=== PATIENT | female | born 1980 | race Caucasian/White ===

== ENCOUNTER → 2017-10-18 11:19 | Outpatient (CLI) | payer OTHER, MEDICAID, SELFPAY ==
[2017-10-24 10:49] LABS: AFP, Serum 30.1 ng/mL; Calc Gestational Age 18.1; Est Date Determined by US; Maternal Weight 245 lbs; Mother Ethnic Origin CAUCASIAN; Number of Fetuses 1; Prev Pregnancies Down Syndrome NOT GIVEN
== END ==
PROVIDERS: Visit Provider Obstetrics & Gynecology
DX: Z34.82 Encounter for supervision of other normal pregnancy, second trimester (principal)
CPT/HCPCS: 36415; 82105

== ENCOUNTER → 2017-10-24 13:12 | Outpatient (CLI) | payer OTHER, MEDICAID, SELFPAY ==
--- NOTE | 2017-10-24 13:13 | DI.US.S_ITS ---
PROCEDURE: US OB >= 14 WEEKS FETUS INDICATIONS: ANATOMY OUTSIDE/PRIOR DATING DATA: Last menstrual period (LMP): 06/13/79. LMP-based estimated date of delivery (MARY): 03/15/80. First dating scan (date and location): 08/15/17. Estimated date of delivery (MARY) from first dating scan: 03/20/18. TECHNIQUE: Real-time scanning was performed of the fetus, with image documentation and biometric measurements. Endovaginal scanning: No COMPARISON: [facility], , OB <= 14 WEEKS FETUS, 09/13/2017, 12:22. FINDINGS: General: A single living intrauterine gestation is present. Presentation: Breech. Placenta: Placental position is anterior, without previa. . Amniotic fluid index: 13.2 cm, normal range is 5-24 cm. heart rate: 141 beats per minute. Maternal cervical canal: 4.4 cm long. Normal lower limit is 2.5 cm. biometrics: Biparietal diameter: 19 weeks 1 day Head circumference: 19 weeks 4 days Abdominal circumference: 19 weeks 5 days Femur length: 18 weeks 5 days Estimated gestational age from initial scan: 19 weeks Composite gestational age from present scan: 19 weeks 2 days Estimated weight and percentile: 281 g; 60 percentile Measurement variability for biometric dating: +/- 7 days from 14 weeks to 15 weeks 6 days gestation, +/- 10 days from 16 weeks to 21 weeks 6 days gestation, +/- 2 weeks from 22 weeks to 27 weeks 6 days gestation, +/- 3 weeks for 28 weeks gestation or later. weight reference: 4500 g or EFW >90/95% is considered macrosomia or large for gestational age. EFW <10% is small for gestational age. EFW 5% or less is considered intra-uterine growth restriction. Anatomic survey: Neuro: Ventricles are non-dilated at less than 10 mm. Cisterna magna is normal at 3-11 mm. Cerebellum is normal in size and morphology. Nuchal skin fold: Normal at less than 6 mm between 14-21 weeks gestational age. Face: Nose and lips, facial profile are normal. Spine: No evidence for spina bifida. Heart: Not well-seen. Diaphragm: Diaphragm is intact. Stomach: Left-sided stomach is present. Kidneys: No hydronephrosis. Normal is less than 5 mm in 2nd trimester, less than 7 mm in 3rd trimester. Cord: 3-vessel cord has orthotopic insertion. Bladder: Normal in size. Extremities: Lower extremities not well seen. IMPRESSION: 1. Single living IUP redemonstrated and interval growth is normal. 2. heart and lower extremities not well-visualized. Dictated by: Facundo MURILLO Interpreted: Ezio De León MD on 10/24/2017 at 15:19 Approved by: Ezio De León M.D. on 10/24/2017 at 15:54
== END ==
PROVIDERS: Visit Provider Obstetrics & Gynecology
DX: Z34.82 Encounter for supervision of other normal pregnancy, second trimester (principal); Z3A.19 19 weeks gestation of pregnancy
CPT/HCPCS: 76811

== ENCOUNTER → 2017-12-14 10:33 | Outpatient (CLI) | payer OTHER, MEDICAID, SELFPAY ==
[2017-12-14 12:40] LABS: GTT (PREG) 1 Hour PP 50gm Dose 101 mg/dL (76-139)
[2017-12-14 16:24] LABS: Hematocrit 39.1 % (36-46); Hemoglobin 13.3 g/dL (12.0-16.0)
== END ==
PROVIDERS: Visit Provider Obstetrics & Gynecology
DX: Z34.92 Encounter for supervision of normal pregnancy, unspecified, second trimester (principal); Z3A.26 26 weeks gestation of pregnancy
CPT/HCPCS: 36415; 82950; 85014; 85018

== ENCOUNTER → 2018-02-08 13:24 | Outpatient (CLI) | payer OTHER, MEDICAID, SELFPAY ==
[2018-02-09 13:56] LABS: Strep Grp B PCR POS for Grp B Strep
== END ==
PROVIDERS: PCP Family Medicine; Visit Provider Obstetrics & Gynecology
DX: Z3A.35 35 weeks gestation of pregnancy (principal)
CPT/HCPCS: 87653

== ENCOUNTER 2018-03-10 05:34 | Inpatient (IN) | payer OTHER, MEDICAID, SELFPAY ==
[2018-03-10] VITALS (9 sets, daily range): BP systolic 102–123; BP diastolic 64–73; PULSE 74–98; RESP 8–17; TEMP 36.2–36.8; O2SAT 95–98
[2018-03-10 06:21] LABS: Add Manual Diff / Slide Review NO; Basophils Percent Auto 1.3 % (0-2); Hematocrit 37.6 % (36-46); Hemoglobin 13.1 g/dL (12.0-16.0); Lymphocytes Percent Auto 29.8 % (25-40); Mean Corpuscular HGB Conc 34.9 % (30-36); Mean Corpuscular Hemoglobin 30.2 PG (26-34); Mean Corpuscular Volume 86.7 fL (80-100); Monocytes Percent Auto 4.2 % (3-14); Neutrophils Absolute Auto 6400 /uL (3000-5900); Neutrophils Percent Auto 63.7 % (50-75); Platelet Count 237 X10^3/uL (150-400); Red Blood Cell Count 4.34 X10^6/uL (4.0-5.2); Red Cell Distribution Width 13.3 % (11.6-14.8); White Blood Cell Count 10.1 X10^3/uL (4.5-11.0)
[2018-03-10] MEDS: LACTATED RINGERS 1,000 ML 42 ML IV (06:27)
--- NOTE | 2018-03-10 07:19 | SUR.OPER ---
Supine on Padded OR bed, head on pillow, safety belt at thigh, arms secured on padded arm boards at <90 degrees abduction. Bump under right buttock. Legs uncrossed with pillow under knees, gel pad to heels, tape over blanket to lower legs.
[2018-03-10] MEDS: CEFOTETAN 2 GM/50 ML PIGGYBACK IV (08:00)
--- NOTE | 2018-03-10 08:30 | SUR.OPER ---
VIABLE FEMALE INFANT DELIVERED AT 0823. CORD BLOOD AND PLACENTA TO OB WITH RN.
--- NOTE | 2018-03-10 08:41 | SUR.OPER ---
PATIENT STATES SHE IS NOT ALLERGIC TO MORPHINE.
--- NOTE | 2018-03-10 09:01 | P.OP_ITS ---
Operative Date/Time/Diagnoses Date of procedure: 03/10/18 Time of procedure: 08:55 Pre-op diagnosis: Term intrauterine History of three prior sections Desire for repeat section Post-op diagnosis: same Procedure: Procedures Operation Date: 03/10/18 07:45 Actual Procedures Side Surgeon p Section-Repeat Not Applicable Jorge Luis Green MD Indications: Term intrauterine History of prior section Desire for repeat section Surgeon: Shante Renteria Corporate Human Resources Manager: Jorge Luis Green Anesthesia Type: Spinal Operative Notes Findings: Live-born female 9 lb 2 oz scores nine and nine Normal tubes and ovaries Closure Type: primary Specimen(s): none Estimated blood loss (mL): 500 Blood products transfused: none Procedure in detail: The patient was placed supine upon the operating table. She was then placed in a sitting position and spinal anesthesia was administered without difficulty. Patient was placed supine again and draped para in the usual fashion. A transverse incision was made through the old scar and the subcutaneous tissue incised to the fascia. There was obvious thickening of the subcutaneous tissue. The fascia was incised with a sharp knife and the incisions extended laterally in each direction with the Ribera scissors. The superior and inferior rough phase were then taken down sharply with a small bleeder on the right-hand side which was fulgurated. The muscles were then in the midline and the peritoneum opened and this was widened by blunt finger dissection. Further dissection was used on the fascia laterally in each direction to get good exposure. The peritoneum over the lower uterine segment was incised and taken down sharply and the bladder blade replaced. There was a thin lower uterine segment which was incised and there was light meconium. A live-born female infant weighing 9 lb 2 oz was then delivered with scores of nine and nine without difficulty. The placenta delivered spontaneously and the cord had three vessels. The estimated blood loss was 500 cc. All membranes were massage from the endometrial cavity. The uterine incision was closed in an imbricating fashion using two layer technique with 0 chromic suture.. No bleeding points were seen the visceral peritoneum was closed with a running two 0 chromic suture. No bleeding points were seen. Tubes and ovaries appeared to be normal. The parietal perineum was grasped and closed with running two 0 chromic suture. The fascia was closed with two continuous 1. Vicryl sutures. The subcutaneous tissue was closed in two layers 1st with interrupted three 0 Vicryl suture then with a running horizontal mattress for 0 Vicryl suture and further reapproximated with Steri- Strips. At the end of the procedure the urine was clear. There was minimal bleeding. The patient was taken to the recovery room in satisfactory condition. Post-operative Condition: stable Disposition: PACU Plan for aftercare: Transferred over Center
[2018-03-10] MEDS: diphenhydrAMINE 50 MG/ML VIAL 25 MG IV ×2 (09:36→23:38)
--- NOTE | 2018-03-10 09:54 | SUR.PHASEI ---
TOTAL IV FLUID INTAKE 2000ML SECOND BAG WAS NOT CHARTED IN THE OR
[2018-03-10] MEDS: KETOROLAC 30 MG/ML VIAL IV ×3 (11:20→23:36)
[2018-03-10] MEDS: OXYCODONE/ACETAMINOPHEN 5/325 TABLET 2 TAB PO ×3 (13:53→22:18)
[2018-03-11] MEDS: OXYCODONE/ACETAMINOPHEN 5/325 TABLET 1 TAB PO (03:49)
[2018-03-11] MEDS: diphenhydrAMINE 50 MG/ML VIAL 25 MG IV (04:02)
[2018-03-11] MEDS: KETOROLAC 30 MG/ML VIAL IV (05:37)
[2018-03-11] MEDS: LEVOTHYROXINE 100 MCG TABLET PO (05:38)
[2018-03-11 06:32] LABS: Hematocrit 34.6 % (36-46); Hemoglobin 11.7 g/dL (12.0-16.0)
[2018-03-11 07:42] VITALS: TEMP 36.6
[2018-03-11] MEDS: OXYCODONE/ACETAMINOPHEN 5/325 TABLET 2 TAB PO ×5 (07:42→23:31)
[2018-03-11] MEDS: DOCUSATE 250 MG CAPSULE PO (08:31)
--- NOTE | 2018-03-11 08:58 | PM.OBPN.1 ---
Subjective - OB Patient comments: no complaints baby status: doing well feeding status: exclusively breast feeding Narrative: Pt is approximately 24 hrs post section and doing well. She is voiding in good volume. ambulating well. Taking po well. Wtih minimal bleeding Date Patient Seen: 03/11/18 Time Patient Seen: 08:59 Exam Vital Signs (past 8 hours): - 03/11/18 07:42 Temperature 97.8 F Oxygen Delivery Method Room Air Narrative Exam Narrative: Fundus u-1 Incision with aquacell dresing Objective Labs Result Diagrams: 03/11/18 06:23 Labs: Laboratory Results - last 24 hr 03/11/18 06:23 Hgb 11.7 L Hct 34.6 L Assessment & Plan (1) Postoperative examination: Start date: 03/11/18 Status: Acute Current Visit: Yes Plan day: 1 plan OB: routine postop care Comments: doing well very actrive Time Spent With Patient Total time spent is greater than 50% in coordination of care (as documented) at patient's floor/unit and/or counseling patient: less than 15 minutes
[2018-03-11 11:17] VITALS: TEMP 36.6
[2018-03-11] MEDS: IBUPROFEN 600 MG TABLET PO ×3 (11:17→23:33)
[2018-03-11 11:19] LABS: Thyroid Stimulating Hormone 3.29 uIU/mL (0.47-4.68)
[2018-03-11 15:30] VITALS: TEMP 36.9
[2018-03-11 17:22] VITALS: TEMP 36.7
[2018-03-11 19:31] VITALS: TEMP 36.6
[2018-03-12] MEDS: OXYCODONE IR 5 MG TABLET 10 MG PO ×2 (04:59→09:34)
[2018-03-12] MEDS: IBUPROFEN 600 MG TABLET PO (05:39)
[2018-03-12] MEDS: LEVOTHYROXINE 100 MCG TABLET PO (05:40)
--- NOTE | 2018-03-12 08:29 | PM.OBDS.1 ---
Discharge Providers Date of admission: 03/10/18 05:34 Primary care physician: Duke Potts MD Consults: 03/10/18 09:44 Consult to Junior Java Developer Routine Comment: Discharge provider: Jorge Luis Green MD Discharge Date: 03/12/18 Summary Date Patient Seen: 03/12/18 Time Patient Seen: 08:35 Hospital Course: The patient is a 37-year-old white female who presented with a history of prior section and term . The patient had a repeat low segment section without incident. Post delivery the patient did well she remained afebrile with stable vital signs and was progressively element and ambulated. She was taken postoperative been instructions were given with regards to diet wound care bathing Peripartum Data Delivery Method: Section Procedures: Spinal anesthesia Repeat section complications: none Discharge Diagnosis (1) Postoperative examination: Start Date: 03/12/18 Start Time: 08:36 Status: Acute Status at Discharge Cognitive/behavioral status at discharge: None Functional status at discharge: independent ambulation Overall status at discharge: patient is back to baseline Time Spent with Patient Total time spent providing and/or coordinating discharge services: Less than 30 minutes Time spent discussing smoking cessation with patient: 3 to 10 minutes Objective Labs Result Diagrams: 03/11/18 06:23 Labs: Laboratory Results - last 24 hr 03/11/18 06:23 TSH 3.29 Discharge Plan Discharge Plan Patient Disposition: Home Discharge Med Rec/Prescriptions Prescriptions: New oxycodone 10 mg tablet 10 mg PO Q4-6H PRN (Reason: pain) Qty: 30 RF: 0 docusate sodium [Colace] 100 mg capsule 100 mg PO BID Qty: 14 RF: 0 ibuprofen 600 mg tablet 600 mg PO QID PRN (Reason: pain) Qty: 20 RF: 0 Discontinued azithromycin 250 mg tablet 250 mg PO .COMPLEX MDD 2 Qty: 11 RF: 0 Follow up/Referrals: Jorge Luis Green MD [Physician] - 03/17/18 12:00 am Provider Discharge Instructions Diet: Diet as Tolerated Activity: p ad shamika Skin/Wound/Dressing Care Report to your healthcare provider any signs of infection, such as:: chills, fever, increased pain and unusual drainage Discharge Data Primary Care Provider: Duke Potts Attending Provider: Jorge Luis Green Admit Date/Time: 03/10/18 05:34
[2018-03-12 08:58] VITALS: BP 110/80; PULSE 80; RESP 17; TEMP 36.6
[2018-03-12 09:34] VITALS: TEMP 36.6
== END 2018-03-12 10:00 | disposition home or self-care (01) | DRG 540 ==
PROVIDERS: PCP Family Medicine
PROC: 10D00Z1 Extraction of Products of Conception, Low, Open Approach (ICD-10-PCS; CPT 59514; principal; 2018-03-10 07:45)
DX: O34.219 Maternal care for unspecified type scar from previous cesarean delivery (principal); Z3A.39 39 weeks gestation of pregnancy; Z37.0 Single live birth
CPT/HCPCS: 36415; 59050; 59514; 84443; 85014; 85018; 85025; 86850; 86900; 86901; J1100; J1200; J1885; J2274; J2405; J2590; J2765

== ENCOUNTER → 2018-04-26 11:51 | Outpatient (CLI) | payer OTHER, MEDICAID, SELFPAY ==
[2018-04-26 12:51] LABS: Free T4, Direct Thyroxine 0.93 ng/dL (0.78-2.19)
[2018-04-26 13:05] LABS: Thyroid Stimulating Hormone 0.66 uIU/mL (0.47-4.68)
== END ==
PROVIDERS: PCP Family Medicine; Visit Provider Obstetrics & Gynecology
DX: E03.9 Hypothyroidism, unspecified (principal)
CPT/HCPCS: 36415; 84439; 84443

== ENCOUNTER → 2018-09-05 10:43 | Outpatient (CLI) | payer OTHER, MEDICAID, SELFPAY ==
[2018-09-05 11:48] LABS: HCG Quantitative /Beta subunit 1837.3 mIU/mL
== END ==
PROVIDERS: PCP Family Medicine; Visit Provider Obstetrics & Gynecology
DX: N91.2 Amenorrhea, unspecified (principal)
CPT/HCPCS: 36415; 84702

== ENCOUNTER → 2018-09-12 14:10 | Outpatient (CLI) | payer OTHER, MEDICAID, SELFPAY ==
--- NOTE | 2018-09-12 14:14 | DI.US.S_ITS ---
PROCEDURE: US OB <= 14 WEEKS FETUS INDICATIONS: SPOTTING OUTSIDE/PRIOR DATING DATA: Last menstrual period (LMP): 08/12/18. LMP-based estimated date of delivery (MARY): 05/19/19. First dating scan (date and location): 09/12/18. Estimated date of delivery (MARY) from first dating scan: See below TECHNIQUE: Real-time scanning was performed of the fetus and maternal pelvic organs, with image documentation. Endovaginal scanning was also performed to better visualize the fetus and maternal ovaries. COMPARISON: [facility], US, US OB <= 14 WEEKS FETUS, 09/13/2017, 12:22. FINDINGS: Embryo: Possible intrauterine gestational sac identified however no pole is seen. Mean gestational sac diameter measures 0.4 cm (5 weeks one day). This appears to be located near scar in the lower uterine segment. Measurement variability in dating: +/- 4 weeks by LMP, +/- 7 days by mean sac diameter (use before 6 weeks gestation if crown-rump length not able to be measured), +/- 5 days by crown-rump length (up to 8 weeks 6 days gestation), +/- 7 days by crown-rump length (up to 13 weeks 6 days gestation). Maternal organs: Ovaries unremarkable except for a possible right-sided corpus luteum. Limited images through the kidneys demonstrate no hydronephrosis. IMPRESSION: Possible intrauterine gestational sac although technically nonspecific. No pole identified. Recommend correlation with beta hCG values and repeat pelvic ultrasound in one week. Differential includes early IUP, missed spontaneous and technically cannot exclude ectopic at this time. Dictated by: Ezio De León M.D. on 09/12/2018 at 17:08 Approved by: Ezio De León M.D. on 09/12/2018 at 17:11
== END ==
PROVIDERS: PCP Family Medicine; Visit Provider Obstetrics & Gynecology
DX: O20.9 Hemorrhage in early pregnancy, unspecified (principal)
CPT/HCPCS: 76801; 76817

== ENCOUNTER → 2018-09-25 13:47 | Outpatient (CLI) | payer OTHER, MEDICAID, SELFPAY ==
[2018-09-25 16:39] LABS: HCG Quantitative /Beta subunit 4180.8 mIU/mL
== END ==
PROVIDERS: PCP Family Medicine; Visit Provider Obstetrics & Gynecology
DX: O20.9 Hemorrhage in early pregnancy, unspecified (principal)
CPT/HCPCS: 84702

== ENCOUNTER → 2018-10-12 09:39 | Outpatient (CLI) | payer OTHER, MEDICAID, SELFPAY ==
[2018-10-12 11:08] LABS: Free T3, Triiodothyronine Free 2.89 pg/mL (2.77-5.27); Free T4, Direct Thyroxine 0.75 ng/dL (0.78-2.19)
== END ==
PROVIDERS: PCP Family Medicine; Visit Provider Family Medicine
DX: E03.9 Hypothyroidism, unspecified (principal); E66.9 Obesity, unspecified
CPT/HCPCS: 36415; 84439; 84443; 84481

== ENCOUNTER → 2018-10-18 09:16 | Outpatient (CLI) | payer OTHER, MEDICAID, SELFPAY ==
--- NOTE | 2018-10-18 09:17 | DI.US.S_ITS ---
PROCEDURE: US THYROID INDICATIONS: THYROMEGALY TECHNIQUE: Real-time scanning was performed of the thyroid gland, with image documentation. COMPARISON: None. FINDINGS: Right: Thyroid lobe measures 5.0 x 1.8 x 2.2 cm, and is diffusely heterogeneous and multinodular in echotexture. Left: Thyroid lobe measures 5.8 x 1.6 x 2.1 cm, and is diffusely heterogeneous and multinodular in echotexture. Isthmus: 7.0 mm thick. IMPRESSION: Enlarged multinodular thyroid. Dictated by: Facundo MURILLO Interpreted: Doe Pickering MD on 10/18/2018 at 10:30 Approved by: Doe Pickering M.D. on 10/19/2018 at 8:50
== END ==
PROVIDERS: PCP Family Medicine; Visit Provider Family Medicine
DX: E01.0 Iodine-deficiency related diffuse (endemic) goiter (principal)
CPT/HCPCS: 76536

== ENCOUNTER → 2018-10-25 08:58 | Outpatient (CLI) | payer OTHER, MEDICAID, SELFPAY ==
[2018-10-25 10:28] LABS: TSH w/ Reflex to FT4 1.81 uIU/mL (0.47-4.68)
[2018-10-27 15:56] LABS: Anti Thyroglobulin Antibody 2 IU/mL (< 2); Thyroid Peroxidase Antibodies 70 IU/mL (< 9)
[2018-11-01 11:09] LABS: Thyroid Peroxidase Antibodies 82
== END ==
PROVIDERS: PCP Family Medicine; Visit Provider Family Medicine
DX: E03.9 Hypothyroidism, unspecified (principal); E04.1 Nontoxic single thyroid nodule
CPT/HCPCS: 36415; 84443; 86376; 86800

== ENCOUNTER → 2019-01-11 14:13 | Outpatient (CLI) | payer OTHER, MEDICAID, SELFPAY ==
[2019-01-11 15:18] LABS: TSH w/ Reflex to FT4 0.53 uIU/mL (0.47-4.68)
== END ==
PROVIDERS: PCP Family Medicine; Visit Provider Family Medicine
DX: E03.9 Hypothyroidism, unspecified (principal)
CPT/HCPCS: 36415; 84443

== ENCOUNTER → 2019-08-27 15:26 | Outpatient (CLI) | payer OTHER, MEDICAID, SELFPAY ==
[2019-08-27 16:06] LABS: Hemoglobin A1C% w Est Avg Glu 5.1 % (4.0-6.0)
[2019-08-27 16:36] LABS: Free T4, Direct Thyroxine 1.74 ng/dL (0.78-2.19)
[2019-08-27 16:50] LABS: Thyroid Stimulating Hormone 0.03 uIU/mL (0.47-4.68)
[2019-08-27 17:04] LABS: HCG Quantitative /Beta subunit 24901 mIU/mL
[2019-08-28 07:28] LABS: Triiodothyronine T3 Total 77 ng/dL (71-180)
== END ==
PROVIDERS: PCP Family Medicine; Referring Provider Family Medicine; Visit Provider Obstetrics & Gynecology
DX: O03.9 Complete or unspecified spontaneous abortion without complication (principal); E03.9 Hypothyroidism, unspecified
CPT/HCPCS: 36415; 83036; 84439; 84443; 84480; 84702; 86850; 86900; 86901

== ENCOUNTER 2019-08-31 15:42 | Day surgery (SDC) | payer OTHER, MEDICAID, SELFPAY ==
[2019-08-29 10:40] VITALS: BMI 31.3
[2019-08-31] VITALS (20 sets, daily range): BP systolic 102–136; BP diastolic 58–83; PULSE 67–88; RESP 10–21; TEMP 36.4–37.2; O2SAT 95–100; BMI 31.3
--- NOTE | 2019-08-31 | PATH_ITS ---
[facility] Accession Number: [id number] . 01 Material submitted: . PART A: product of conception - TISSUE FROM D/C PART B: product of conception - TISSUE FROM MISSED AB . 02 Diagnosis: A. Tissue From D/C, Removal: Secretory endometrium with no evidence of neoplasia. . B. Tissue From Missed , Removal: Chorionic villi and fragments of decidua, consistent with products of conception. [facility] 09/03/2019 1335 Local . 02 Electronically signed: . Sunni Kraft MD, Pathologist NPI- [id number] . 01 Gross description: . Part A: TISSUE FROM D/C: Received in formalin are multiple fragments of hemorrhagic spongy tissue measuring 2.8 x 2.0 x 0.5 cm in aggregate. parts are not identified. Specimen is submitted in toto in 2 cassettes. Part B: TISSUE FROM MISSED AB: Received in formalin are multiple fragments of hemorrhagic spongy tissue measuring 11.0 x 10.0 x 2.5 cm in aggregate. parts are not identified. Water Ski Assembler sections are submitted in 4 cassettes. /MJMarie 09/01/2019 1043 Local . 02 Pathologist provided ICD-10: O02.1 . 02 CPT . 378930, [id number] Performed at: 01 [facility] [address], [place], [place] [id number] MD Vladimir Talbot MD Phone: [phone] Performed at: [address] [facility] [address] [place], [place] [id number] MD Sunni Kraft MD Phone: [phone]
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
[2019-08-31] MEDS: DOXYCYCLINE HYCLATE 100 MG TABLET 200 MG PO (16:32)
[2019-08-31] MEDS: LACTATED RINGERS 1,000 ML 100 ML IV ×3 (16:34→22:48)
[2019-08-31 17:04] LABS: COVID19 -Nasal RAPID Negative (Negative)
--- NOTE | 2019-08-31 17:17 | PM.PREOP ---
Pre-operative Note COVID-19 COVID-19 status: Negative Result date/Date tested (Pos, Neg/Pending): 08/31/19 Interval Note History & Physical reviewed/Exam performed by Physician: Yes Changes to H&P: No
--- NOTE | 2019-08-31 17:19 | PM.PROC.1 ---
Procedures Date/Time Date of procedure: 08/31/19 Time of procedure: 17:50 General Procedure description:
[2019-08-31] MEDS: ONDANSETRON 4 MG/2 ML INJ IV (17:27)
--- NOTE | 2019-08-31 17:29 | PM.OP.1 ---
Operative Date/Time/Diagnoses Date of procedure: 08/31/19 Time of procedure: 19:00 Pre-op diagnosis: Missed AB at 11 weeks by dates, 9 week persistent empty sac, questionable small 6 week pole with absence of cardiac activity, no change on sequential ultrasound, consistent with miscarriage. Severe cramping today and bleeding consistent with inevitable spontaneous . Post-op diagnosis: same Procedure & Clinicians Procedure: After being properly identified she was transferred to the operating room. After an adequate level of general anesthesia was obtained she was placed in Bar stirrups in the dorsal lithotomy position. Bimanual examination was performed which revealed an approximate 12 cm size uterus, globular consistent with .. She was prepped and draped in routine sterile fashion. Her bladder was sterilely drained with a rubber catheter. An open-sided speculum was placed and the cervix was grasped with a single-tooth tenaculum. The cervix was already mildly dilated and the dilators passed with ease, she did not need to be dilated and a 11. Curved suction curette could be passed with ease. The suction curette was placed. Suction curettage was performed for a moderate to large amount of tissue. Some tissue was set aside for chromosomal analysis. Several passes were needed before no further tissue was obtained. A metal curette was placed and gentle global curettage revealed there to be no further products of conception. The suction curette was placed 1 last time to obtain any residual clot or blood. There was no clot but still bright red blood. She had some normal increased bright red blood with removing the tissue and this had decreased but was still currently heavier than normal. The tenaculum was removed. Bimanual uterine massage was performed. The uterus felt like it was tasia down well overall except mildly boggy in the lower uterine segment. Speculum was replaced. There was good hemostasis at the tenaculum sites. She did have moderately heavy bleeding through the cervical os yet however. Methergine 0.2 mg IM was given and Misoprostol 800 mcg was given per rectum. Subsequently tranexamic acid 1 g IV given when bleeding was still on the heavier side than normal. The suction curette was placed again at this time with using an Allis clamp to the anterior cervix for counter traction and only some blood removed, no clots or tissue. The Allis clamp was removed. Bimanual massage was again performed . The uterus did feel firm at this time and contracted down well to approximately 9 cm size. Observation performed . Bleeding did decrease but there was still a light persistent trickle through the vagina. With replacing a speculum she was noted to have some heavier bleeding through the cervical os. Hemabate 250 mcg IM and Pitocin 30 units in 500 mL IV fluids were both given. Uterine massage performed wall leading the medications take effect and then observed external vagina and no further blood noted to be coming through the vagina. A speculum was placed and there was only a small amount of blood in the posterior cul-de-sac. The speculum was removed. Additional observation for few minutes revealed no additional blood through the vaginal opening. Bleeding appeared to now be normal for post suction D&C and the procedure was ended. A 2nd dose of tranexamic acid 1 gm IV was ordered, to be given when she reached the recovery room to help assure continued normal postprocedure bleeding. The procedure was ended. She tolerated the procedure well and went to recovery room stable condition. Same procedure as scheduled: Yes Indications: Missed AB on ultrasound, developed severe cramping and light bleeding but not passing tissue, consistent with inevitable AB desires proceeding with the suction D&C due to the severe cramping. Surgeon: Alessandra Lazo Click Yes if Unassisted: No Anesthesia Type: General Operative Notes Specimen(s): other (Products of conception for pathology and portion for chromosomal analysis) Post-operative Condition: stable Disposition: PACU
--- NOTE | 2019-08-31 18:04 | SUR.OPER ---
Lithotomy on padded OR bed, head on pillow, arms secured on padded arm boards at <90 degrees abduction. Legs secured in padded yellow fins stirrups.
[2019-08-31] MEDS: miSOPROStoL 200 MCG TABLET 800 MCG PR (18:19)
[2019-08-31] MEDS: TRANEXAMIC ACID 1,000 MG VIAL 1000 MG IV ×2 (18:26→19:16)
[2019-08-31] MEDS: fentaNYL 100 MCG/2 ML INJ IV ×4 (19:25→20:01)
[2019-08-31] MEDS: ONDANSETRON 4 MG/2 ML INJ (19:31)
[2019-08-31 19:44] LABS: Hematocrit 37.3 % (36-46); Hemoglobin 12.7 g/dL (12.0-16.0); Mean Corpuscular HGB Conc 33.9 % (30-36); Mean Corpuscular Hemoglobin 30.2 PG (26-34); Mean Corpuscular Volume 89.1 fL (80-100); Platelet Count 257 X10^3/uL (150-400); Red Blood Cell Count 4.19 X10^6/uL (4.0-5.2); Red Cell Distribution Width 15.5 % (11.6-14.8); White Blood Cell Count 10.2 X10^3/uL (4.5-11.0)
[2019-08-31 19:55] LABS: PTT Partial Thromboplastin Tim 31 SECONDS (26.4-36.2)
[2019-08-31] MEDS: METOCLOPRAMIDE 10 MG/2 ML INJ IV (20:04)
[2019-08-31] MEDS: HYDROMORPHONE 2 MG INJ IV ×5 (20:10→21:47)
[2019-08-31] MEDS: CARBOPROST 250 MCG/ML AMPUL IM (20:33)
--- NOTE | 2019-08-31 21:24 | SUR.PHASEI ---
Report called to Isabel
--- NOTE | 2019-08-31 21:37 | SUR.PHASEI ---
Dr. Lazo evaluated patient, pad and chux changed for moderate bleeding
[2019-08-31] MEDS: OXYCODONE IR 5 MG TABLET 10 MG PO (21:51)
--- NOTE | 2019-08-31 22:07 | PM.PNPO.1 ---
Subjective Subjective Date Patient Seen: 08/31/19 Time Patient Seen: 22:07 Interval history: Been observing patient and PACU since postprocedure. Postop she had severe cramping, expected due to the medications, including Hemabate that she received in the OR. Her vaginal bleeding picked up again about 2 pads per hour. I gave her an additional dose of misoprostol 200 mcg per rectum, to take her up to 1000 mcg total (had received 800 mcg in the OR) and repeated Hemabate 250 mcg when she was 90 minutes from her prior dose. Her bleeding has now decreased to less than 1 pad per hour. Her cramping had decreased with pain medication, but returned as severe after the repeat Hemabate. This is now more control, less intense with her with repeat Dilaudid IV and now oxycodone. Decision shortly postop when she was having the severe cramping and some heavier bleeding was to keep her for observation overnight. With bleeding being remediation technician and cramping more controlled, she is being transferred to the acute care floor for observation overnight. Exam Vital Signs (past 8 hours): - 08/31/19 16:10 08/31/19 19:10 08/31/19 19:12 Temperature 98.5 F 98.2 F Pulse Rate 81 81 81 Respiratory Rate 18 14 15 Blood Pressure 102/59 L 136/58 L 112/75 Pulse Oximetry 99 98 98 08/31/19 19:19 08/31/19 19:22 08/31/19 19:39 Temperature Pulse Rate 77 78 80 Respiratory Rate 16 11 L 13 Blood Pressure 116/81 126/78 115/75 Pulse Oximetry 99 99 98 08/31/19 19:47 08/31/19 20:02 08/31/19 20:17 Temperature Pulse Rate 74 79 68 Respiratory Rate 12 11 L 10 L Blood Pressure 112/73 118/74 106/64 Pulse Oximetry 100 96 97 08/31/19 20:31 08/31/19 20:49 08/31/19 21:03 Temperature 98.1 F Pulse Rate 70 67 71 Respiratory Rate 11 L 10 L 21 Blood Pressure 105/68 119/77 109/59 L Pulse Oximetry 98 97 98 08/31/19 21:16 08/31/19 21:31 08/31/19 21:46 Temperature Pulse Rate 76 75 72 Respiratory Rate 11 L 19 12 Blood Pressure 129/83 122/80 124/60 Pulse Oximetry 95 98 99 Oxygen Delivery Method Room Air Objective Labs Result Diagrams: 08/31/19 18:30 Labs: Laboratory Results - last 24 hr 08/31/19 08/31/19 08/31/19 15:55 18:30 19:30 WBC 10.2 RBC 4.19 Hgb 12.7 Hct 37.3 MCV 89.1 MCH 30.2 MCHC 33.9 RDW 15.5 H Plt Count 257 PT 12.0 INR 1.0 APTT 31 COVID-19 PCR Negative Blood Type Antibody Screen 08/31/19 08/31/19 19:30 19:30 WBC RBC Hgb Hct MCV MCH MCHC RDW Plt Count PT INR APTT Cancelled COVID-19 PCR Blood Type A Positive Antibody Screen Negative Assessment & Plan Post-op Postoperative Procedures: Procedures Operation Date: 08/31/19 17:00 Actual Procedures Side Surgeon p Suction Dilation and Curettage Alessandra Lazo MD
--- NOTE | 2019-08-31 22:43 | SUR.PHASEI ---
Patient transferred to the floor. VS stable. IV patent with LR. Report given to Isabel. Purse, belongings bag, cellphone and valuables with patient.
[2019-08-31 22:47] LABS: Hematocrit 37.2 % (36-46); Hemoglobin 12.4 g/dL (12.0-16.0); Mean Corpuscular HGB Conc 33.2 % (30-36); Mean Corpuscular Hemoglobin 29.6 PG (26-34); Platelet Count 308 X10^3/uL (150-400); Red Blood Cell Count 4.18 X10^6/uL (4.0-5.2); Red Cell Distribution Width 15.8 % (11.6-14.8); White Blood Cell Count 13.5 X10^3/uL (4.5-11.0)
--- NOTE | 2019-08-31 23:20 | PC.NURSE ---
Pt arrived on unit at approx 2220, A and O x 4, able to ambulate to bed and BR. Pt is voiding and urine was brown in color. Dr. Lazo is aware. Pt is wearing a pad and at admit she had moderate behzad blood on a malena pad. Pad will be changed q 1 hour and MD wants to be called with status of blood loss and latest H and H. Pt has been typed and crossed and is A +. Pt is breast feeding at home and so is using a hospital breast pump. VSS. Pt is A and O and appears to be emotionally stable.
[2019-09-01] MEDS: OXYCODONE IR 5 MG TABLET PO (00:16)
[2019-09-01 00:20] VITALS: BP 113/59; PULSE 82; RESP 16; O2SAT 100
[2019-09-01 01:20] VITALS: BP 107/64; PULSE 83; RESP 16; O2SAT 97
[2019-09-01] MEDS: OXYCODONE/ACETAMINOPHEN 5/325 TABLET 2 TAB PO ×3 (02:11→09:37)
[2019-09-01 04:30] VITALS: BP 83/71; PULSE 74; RESP 16; TEMP 36.9; O2SAT 95
[2019-09-01 08:00] VITALS: BP 102/69; PULSE 72; RESP 18; TEMP 36.4; O2SAT 97
[2019-09-01] MEDS: LEVOTHYROXINE 125 MCG TABLET PO (08:02)
[2019-09-01] MEDS: KETOROLAC 30 MG/ML VIAL IV (09:37)
[2019-09-01] MEDS: SODIUM CHLORIDE 0.9% FLUSH 10 ML IV (09:37)
--- NOTE | 2019-09-01 09:42 | PM.PNPO.1 ---
Subjective Subjective Date Patient Seen: 09/01/19 Time Patient Seen: 09:20 Interval history: Stefany reports she is feelign well. Slept a few hours. She reports only with minimal bleeding last night after 11 pm. Nothing on to her pad through the night, just some in toilet when urinates. No further cramping. Muscles feel mildly sore over lower abdomen and arms, neck some---believes from holding body stiff when cramping was intense in PACU between pain medication. No fever or chills. Exam Vital Signs (past 8 hours): - 09/01/19 04:30 09/01/19 08:00 Temperature 98.4 F 97.6 F Pulse Rate 74 72 Respiratory Rate 16 18 Blood Pressure 83/71 L 102/69 Pulse Oximetry 95 97 Oxygen Delivery Method Room Air Oxygen Flow Rate 0 Narrative Exam Narrative: General: well appeearing, no acute distress Abdomen: soft, nontender Extremities: no edema Objective Labs Result Diagrams: 08/31/19 22:40 Labs: Laboratory Results - last 24 hr 08/31/19 08/31/19 08/31/19 15:55 18:30 19:30 WBC 10.2 RBC 4.19 Hgb 12.7 Hct 37.3 MCV 89.1 MCH 30.2 MCHC 33.9 RDW 15.5 H Plt Count 257 PT 12.0 INR 1.0 APTT 31 COVID-19 PCR Negative Blood Type Antibody Screen 08/31/19 08/31/19 08/31/19 19:30 19:30 22:40 WBC 13.5 H RBC 4.18 Hgb 12.4 Hct 37.2 MCV 89.0 MCH 29.6 MCHC 33.2 RDW 15.8 H Plt Count 308 PT INR APTT Cancelled COVID-19 PCR Blood Type A Positive Antibody Screen Negative Assessment & Plan Post-op Postoperative Procedures: Procedures Operation Date: 08/31/19 17:00 Actual Procedures Side Surgeon p Suction Dilation and Curettage Alessandra Laoz MD Postoperative day: 1 Postoperative status: doing well Postoperative status narrative: s/p heavier bleeding post suction D&C, improved after multiple uterotonic, uterine medications. Vaginal bleeding now minimal. CBC not drawn this am. Will cancel since pt doing well, ready for discharge home Postoperative plan: discharge Time Spent With Patient Time with patient: 15-24 minutes Quality VTE Deep Vein Thrombosis/Pulmonary Embolism Present on Admission: No
--- NOTE | 2019-09-01 11:12 | PC.NURSE ---
Discharge: Pt feels ready to d/c home. Has been up in the room and has no dizziness when she amb. Vag flow is scant. Po pain meds effective, received a second percocet and got toradol IV, having better pain control now. No problems voiding. Reviewed d/c packets, rx has been esent. priority load given for ferry. Questions answered. Pt d/c home via auto w/spouse.
--- NOTE | 2019-09-01 11:33 | CM.DANOTE ---
DCP: Case received, EMR reviewed and briefly met with patient. Introduced self and role. Was able to obtain a majority of information from chart, on patient, since she was getting ready to leave. DCP assessment completed with information currently available. Patient is a 38 year old female who admitted yesterday to the care of the surgical/OB team. Payer: confirmed: [facility]/Medicaid. Patient came to the hospital for a surgical procedure. She had been scheduled for a D&C, secondary to a spontaneous . Patient had been having cramping prior to surgery, and increased bleeding, and elected to have this procedure done. Met briefly with patient. She is independent, and was getting ready to leave. Pleasant demeanor. She resides on [facility] with her , Stuart. P: Patient is to be discharged home today with no needs. Neida Pearson RN/Elementary Classroom Teacher
== END 2019-09-01 10:00 | disposition home or self-care (01) ==
LOC: OR 15:45 → AC 22:26
PROVIDERS: PCP Family Medicine; Referring Provider Obstetrics & Gynecology; Visit Provider Obstetrics & Gynecology
PROC: (CPT 58120; principal; 2019-08-31 17:00)
DX: O02.1 Missed abortion (principal); Z3A.11 11 weeks gestation of pregnancy; E03.9 Hypothyroidism, unspecified; Z98.890 Other specified postprocedural states; D64.9 Anemia, unspecified; F41.9 Anxiety disorder, unspecified; Z11.59 Encounter for screening for other viral diseases
CPT/HCPCS: 59820; 36415; 85027; 85610; 85730; 86850; 86900; 86901; 87635; J1100; J1170; J1885; J2250; J2405; J2590; J2704; J2765; J3010; S0191

== ENCOUNTER → 2019-10-08 09:23 | Outpatient (CLI) | payer OTHER, MEDICAID, SELFPAY ==
[2019-08-31 22:32] VITALS: BMI 31.3
--- NOTE | 2019-10-08 09:27 | DI.RAD.S_ITS ---
1PROCEDURE: XR CERVICAL SPINE 2V OR 3V INDICATIONS: neck pain with right radiculopathy TECHNIQUE: 3 view(s) of the cervical spine were acquired. COMPARISON: [facility], CR, XR SHOULDER RT MIN 2V, 10/08/2019, 9:21. FINDINGS: Bones: No fractures or dislocations to the T1 level. The lateral masses of C1 appear intact on the odontoid view. No suspicious bony lesions. There is reversal of the normal cervical lordosis, with the apex at the C5-C6 level. There is moderate disc space narrowing seen at C5-C6 and mild to moderate disc space narrowing seen at C6-C7. Endplate irregularity and sclerosis are seen, which are most prominent at C5-C6. Partially bridging anterior osteophytes are seen at C5-C6. Soft tissues: No prevertebral soft tissue swelling. The visualized lung apices are unremarkable. IMPRESSION: Focal premature C5-C6 degenerative change. Reversal of the normal cervical lordosis is seen. This is commonly observed in patients with muscular spasm. Dictated by: Damien Reynaga M.D. on 10/08/2019 at 10:51 Approved by: Damien Reynaga M.D. on 10/08/2019 at 10:52
--- NOTE | 2019-10-08 09:27 | DI.RAD.S_ITS ---
PROCEDURE: XR SHOULDER RT MIN 2V INDICATIONS: right shoulder pain TECHNIQUE: 3 views of the shoulder were acquired. COMPARISON: [facility], CR, XR CERVICAL SPINE 2V OR 3V, 10/08/2019, 9:21. FINDINGS: Bones: No fractures or dislocations. No suspicious bony lesions. Visualized ribs appear intact. Soft tissues: No suspicious soft tissue calcifications. The visualized lung apices are unremarkable. IMPRESSION: Unremarkable plain film study. If it would be helpful for clinical management decision making, please consider a dedicated shoulder MRI for further evaluation (assuming that there is no contraindication). If there is strong clinical concern for a labral abnormality, this should be performed according to the arthrogram protocol. Dictated by: Damien Reynaga M.D. on 10/08/2019 at 10:52 Approved by: Damien Reynaga M.D. on 10/08/2019 at 10:53
== END ==
PROVIDERS: PCP Family Medicine; Referring Provider Family Medicine; Visit Provider Family Medicine
DX: M25.511 Pain in right shoulder (principal); M47.22 Other spondylosis with radiculopathy, cervical region
CPT/HCPCS: 72040; 73030

== ENCOUNTER → 2019-10-18 09:29 | Outpatient (CLI) | payer OTHER, MEDICAID, SELFPAY ==
[2019-08-31 22:32] VITALS: BMI 31.3
[2019-10-15 13:32] VITALS: BMI 31.3
--- NOTE | 2019-10-18 09:31 | DI.MRI.S_ITS ---
PROCEDURE: MR CERVICAL SPINE WO CON INDICATIONS: neck pain, radiculopathy TECHNIQUE: Noncontrast sagittal T1 spin echo and T2 fast spin echo, sagittal STIR, foraminal oblique sagittal T2 fast spin echo, and axial gradient echo or T2 fast spin echo through the cervical spine. COMPARISON: None. FINDINGS: Image quality: Diagnostic, with note made of motion artifact. Alignment and Curvature: There is reversal of the normal cervical lordosis, with the apex at the C6-C7 level. Bone Marrow: Marrow demonstrates normal overall signal. Spinal Cord: Visualized spinal cord has normal size and signal. No cerebellar tonsillar herniation. Paraspinous Soft Tissues: No paravertebral masses. Prevertebral soft tissues are normal in thickness. C2-C3: Normal appearance. C3-C4: Normal appearance. C4-C5: The disc height and disk signal are well-preserved. A mild degree of generalized disc osteophyte complex is seen. Mild facet joint hypertrophy is seen. No significant neural foraminal narrowing is seen. Mild central canal narrowing is seen. C5-C6: Mild to moderate loss of disc height and disc signal can be seen. [id number] disc osteophyte complex can be seen. Bridging endplate osteophytes are seen. Mild facet joint hypertrophy is seen. There is [id number] bilateral neural foraminal narrowing seen, right worse than left. Moderate central canal narrowing is seen. C6-C7: At least moderate loss of disc height is seen. Bridging endplate osteophytes are seen. Moderate disc osteophyte complex is seen, with a central/right disc extrusion seen. There is inferior migration of disc material. The disc extrusion measures 11 mm craniocaudally. There is moderate bilateral neural foraminal narrowing seen, right worse than left. Moderate to severe central canal narrowing is seen, with associated mass effect upon the ventral spinal cord, as on series 4 image 31. C7-T1: The disc height and disk signal are well-preserved. A mild degree of generalized disc osteophyte complex is seen. Moderate bilateral neural foraminal narrowing is seen. No significant central canal narrowing is seen IMPRESSION: Premature lower cervical spine degenerative changes are seen, including a disc extrusion at C6-C7, with associated moderate to severe central canal narrowing. Dictated by: Damien Reynaga M.D. on 10/18/2019 at 9:30 Approved by: Damien Reynaga M.D. on 10/18/2019 at 9:35
== END ==
PROVIDERS: PCP Family Medicine; Referring Provider Family Medicine; Visit Provider Family Medicine
DX: M50.123 Cervical disc disorder at C6-C7 level with radiculopathy (principal); M48.02 Spinal stenosis, cervical region; M47.22 Other spondylosis with radiculopathy, cervical region
CPT/HCPCS: 72141

== ENCOUNTER → 2019-10-22 10:30 | Outpatient (CLI) | payer OTHER, MEDICAID, SELFPAY ==
[2019-10-15 13:32] VITALS: BMI 31.3
[2019-10-22 12:17] LABS: Free T3, Triiodothyronine Free 1.88 pg/mL (2.77-5.27); Free T4, Direct Thyroxine 0.56 ng/dL (0.78-2.19)
== END ==
PROVIDERS: PCP Family Medicine; Referring Provider Family Medicine; Visit Provider Family Medicine
DX: E03.9 Hypothyroidism, unspecified (principal)
CPT/HCPCS: 36415; 84439; 84443; 84481

== ENCOUNTER → 2019-11-01 14:49 | Outpatient (CLI) | payer OTHER, MEDICAID, SELFPAY ==
[2019-10-15 13:32] VITALS: BMI 31.3
--- NOTE | 2019-11-01 14:52 | DI.MRI.S_ITS ---
PROCEDURE: MR SHOULDER RT WO CON INDICATIONS: Right shoulder impingement TECHNIQUE: Noncontrast oblique coronal T2 fast spin echo with fat saturation, oblique sagittal T1 spin echo and T2 fast spin echo with fat saturation, axial T1 spin echo and T2 fast spin echo with fat saturation through the shoulder. COMPARISON: None. FINDINGS: Image quality: Diagnostic. Rotator cuff: No full-thickness or partial-thickness tear of the rotator cuff is identified. There is no significant tendinopathy. The supraspinatus, infraspinatus, subscapularis, and teres minor tendons are intact and within normal limits. No significant muscle atrophy is appreciated. Bones and bursae: No acute fracture, dislocation, or suspicious osseous lesion is identified involving the osseous structures of the right shoulder. No significant degenerative changes of the glenohumeral joint are present. There mild degenerative changes of the acromioclavicular joint with slight lateral acromial downsloping. A small amount of fluid is contained within the subacromial subdeltoid bursa. Capsule and soft tissues: Evaluation of the labrum and the glenohumeral ligaments is suboptimal without intra-articular contrast. However, there is a small posterosuperior paralabral cyst that does not extend into the spinal glenoid notch, but measures approximately 7 x 8 x 2 mm. An associated area of increased signal along the labral cartilaginous junction is identified extending from approximately the 12 o'clock position to the 3 o'clock position. No detached labral fragments are evident. The long head of the biceps tendon is normally positioned within the bicipital groove and is otherwise intact and unremarkable. No acute injuries are suspected involving the glenohumeral ligaments. IMPRESSION: 1. The rotator cuff tendons are within normal limits without significant tendinopathy or tearing. 2. Small posterosuperior labral tear (SLAP tear) with an associated small paralabral cyst. 3. Mild degenerative changes of the acromioclavicular joint with lateral acromial downsloping. 4. Minimal fluid within the subacromial subdeltoid bursa. Dictated by: Tray Carrington M.D. on 11/01/2019 at 14:39 Approved by: Tray Carrington M.D. on 11/01/2019 at 14:42
[2019-11-01 15:41] LABS: Bacteria Urine None Seen; RBC Urine None Seen (0-5/HPF); WBC Urine None Seen (0-5/HPF)
[2019-11-01 16:32] LABS: Appearance Urine UA CLEAR; Bilirubin Urine UA NEGATIVE (NEGATIVE); Color Urine UA YELLOW; Glucose Urine UA NEGATIVE (Negative); Ketones Urine UA NEGATIVE (NEGATIVE); Leukocyte Esterase Urine UA NEGATIVE (NEGATIVE); Nitrite Urine UA NEGATIVE (Negative); Occult Blood Urine UA NEGATIVE (Negative); Protein Urine UA NEGATIVE (Negative); Urobilinogen Urine UA 0.2 E.U./dL (0.2)
[2019-11-01 16:44] LABS: Culture Indicated Urine Cult Not Indicated; Squamous Epithelial Cell Urine 0-1 /HPF (0-5/HPF); Urine Comments Microscopic Normal
== END ==
PROVIDERS: PCP Family Medicine; Referring Provider Physical Medicine & Rehabilitation; Visit Provider Physical Medicine & Rehabilitation
DX: M75.41 Impingement syndrome of right shoulder (principal); S43.431A Superior glenoid labrum lesion of right shoulder, initial encounter; R30.0 Dysuria
CPT/HCPCS: 73221; 81001

== ENCOUNTER → 2019-12-19 10:49 | Outpatient (CLI) | payer OTHER, MEDICAID, SELFPAY ==
[2019-10-15 13:32] VITALS: BMI 31.3
[2019-12-19 12:49] LABS: HCG Quantitative /Beta subunit < 2.4 mIU/mL
[2019-12-19 12:50] LABS: Free T3, Triiodothyronine Free 5.18 pg/mL (2.77-5.27); Free T4, Direct Thyroxine 0.75 ng/dL (0.78-2.19)
== END ==
PROVIDERS: PCP Family Medicine; Referring Provider Family Medicine; Visit Provider Family Medicine
DX: N91.2 Amenorrhea, unspecified (principal); E03.9 Hypothyroidism, unspecified
CPT/HCPCS: 36415; 84439; 84443; 84481; 84702

== ENCOUNTER → 2020-02-05 10:21 | Outpatient (CLI) | payer OTHER, MEDICAID, SELFPAY ==
[2019-10-15 13:32] VITALS: BMI 31.3
[2020-02-05 11:36] LABS: Appearance Urine UA CLEAR; Bilirubin Urine UA NEGATIVE (NEGATIVE); Color Urine UA YELLOW; Glucose Urine UA NEGATIVE (Negative); Ketones Urine UA NEGATIVE (NEGATIVE); Leukocyte Esterase Urine UA NEGATIVE (NEGATIVE); Nitrite Urine UA NEGATIVE (Negative); Occult Blood Urine UA NEGATIVE (Negative); Protein Urine UA NEGATIVE (Negative); Specific Gravity Urine UA 1.015 (1.000-1.035); Urobilinogen Urine UA 0.2 E.U./dL (0.2)
[2020-02-05 11:37] LABS: pH Urine UA 6.5 (4.5-8.0)
[2020-02-05 11:38] LABS: Add Manual Diff / Slide Review NO; Basophils Absolute Auto 100 /uL (0-100); Basophils Percent Auto 0.7 % (0-2); Eosinophils Absolute Auto 100 /uL (0-450); Eosinophils Percent Auto 1.1 % (2-4); Hematocrit 39.9 % (36-46); Hemoglobin 13.3 g/dL (12.0-16.0); Lymphocytes Absolute Auto 2400 /uL (1100-4500); Mean Corpuscular HGB Conc 33.3 % (30-36); Mean Corpuscular Hemoglobin 28.4 PG (26-34); Mean Corpuscular Volume 85.4 fL (80-100); Monocytes Absolute Auto 400 /uL (0-900); Monocytes Percent Auto 5.7 % (3-14); Neutrophils Absolute Auto 4600 /uL (1500-7000); Neutrophils Percent Auto 60.5 % (50-75); Platelet Count 287 X10^3/uL (150-400); Red Blood Cell Count 4.67 X10^6/uL (4.0-5.2); Red Cell Distribution Width 15.3 % (11.6-14.8); White Blood Cell Count 7.5 X10^3/uL (4.5-11.0)
[2020-02-05 12:19] LABS: Free T3, Triiodothyronine Free 4.04 pg/mL (2.77-5.27); Free T4, Direct Thyroxine 1.81 ng/dL (0.78-2.19)
[2020-02-05 12:36] LABS: Thyroid Stimulating Hormone < 0.015 uIU/mL (0.47-4.68)
[2020-02-05 12:36] LABS: Hepatitis B Surface Antigen NEGATIVE s/c (NEGATIVE); Rubella Antibody IgG 10.4 IU/mL (>15)
[2020-02-05 12:51] LABS: HIV 1 & 2 Ab/Ag 4th Gen Combo NEGATIVE (NEGATIVE); Hep C Virus Ab w/Reflex Quant NEGATIVE s/c (NEGATIVE)
[2020-02-05 13:55] LABS: Miscellaneous to LabCorp KIT TEST
[2020-02-06 05:45] LABS: RPR Screen Non Reactive (Non Reactive)
[2020-02-06 12:20] LABS: Varicella IgG Antibody 158 index (Immune >165)
== END ==
PROVIDERS: PCP Family Medicine; Referring Provider Obstetrics & Gynecology; Visit Provider Obstetrics & Gynecology
DX: O09.521 Supervision of elderly multigravida, first trimester (principal); E03.9 Hypothyroidism, unspecified; Z87.798 Personal history of other (corrected) congenital malformations
CPT/HCPCS: 80055; 81003; 84439; 84443; 84481; 86787; 86803; 86850; 86900; 86901; 87086; 87389

== ENCOUNTER 2020-02-07 23:20 | Emergency (ER) | payer OTHER, MEDICAID, SELFPAY ==
[2019-10-15 13:32] VITALS: BMI 31.3
[2020-02-07 23:25] VITALS: BP 116/58; PULSE 78; RESP 14; TEMP 37.1; O2SAT 98; BMI 32.5
--- NOTE | 2020-02-07 23:28 | ED.PREGNANCY ---
HPI - <Marianna Stafford MD - Last Filed: 02/09/20 01:53> General Chief complaint: OB/Uterine Contractions Stated complaint: 10 wks , bleeding Time Seen by Provider: 02/07/20 23:25 History of Present Illness HPI Narrative: at ten weeks 5 days presents with vaginal bleeding. Minimal cramping. Last 2 pregnancies were trisomy abnormalities and ended in spontaneous abortions. She noted this evening gush of fluid that was bloody and she and her got on the [place] to come in for further evaluation. She has a large pad in place that is almost completely slow to with what smells and looks like slightly blood tinged amniotic fluid. Aside from the gush of fluid earlier this evening she has no other complaints. Patient : Yes Related Data Home Medications Medication Instructions Recorded Confirmed aspirin 81 mg tablet,delayed 81 mg PO DAILY 01/31/20 02/05/20 release prenat.vits,rhonda,[id number] 1 tab PO DAILY 01/31/20 02/05/20 Previous Rx's Medication Instructions Recorded lorazepam 1 mg tablet 1 mg PO BID-TID PRN #60 tab 12/20/19 progesterone micronized 200 mg 200 mg PO BEDTIME #30 cap 01/01/20 capsule levothyroxine 175 mcg tablet See Rx Instructions PO DAILY #40 01/07/20 tab Allergies Allergy/AdvReac Type Severity Reaction Status Date / Time morphine AdvReac Intermediate ITCHING Verified 02/05/20 09:28 allergic rhinitis Allergy Intermediate Seasonal Uncoded 02/05/20 09:28 allergy Review of Systems <Marianna Stafford MD - Last Filed: 02/09/20 01:53> Review of Systems Narrative: Pertinent positive and negative findings as per HPI Remainder of review of systems is otherwise unremarkable for Constitutional: Fevers, chills, weakness ENT: No sore throat, neck pain, ear pain CV: Chest pain, palpitations, dyspnea on exertion Respiratory: Cough, wheeze, dyspnea GI: Nausea, vomiting, diarrhea, : Dysuria, hematuria, flank pain MS: Muscle weakness, numbness, joint swelling or warmth Skin: Rashes, nonhealing lesions Neuro: Syncope, dizziness, tingling PMFSH - <Marianna Stafford MD - Last Filed: 02/09/20 01:53> Past Medical History Surgical history: Reports (5) 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 In the upper part of the uterus there appears to be either an involuting sac with no parts or a small septum at the fundus with amniotic fluid leaking from the noted sac around it. Placenta does appear to be fundal internal os is closed ROM amniotic fluid testing is done and is positive Initial Vital Signs Initial Vital Signs: Vital Signs Temperature 98.7 F 02/07/20 23:25 Pulse Rate 78 02/07/20 23:25 Respiratory Rate 14 02/07/20 23:25 Blood Pressure 116/58 L 02/07/20 23:25 Pulse Oximetry 98 02/07/20 23:25 <Nathaly Rondon DO - Last Filed: 02/08/20 08:43> Initial Vital Signs Initial Vital Signs: Vital Signs Temperature 98.7 F 02/07/20 23:25 Pulse Rate 78 02/07/20 23:25 Respiratory Rate 14 02/07/20 23:25 Blood Pressure 116/58 L 02/07/20 23:25 Pulse Oximetry 98 02/07/20 23:25 Course <Marianna Stafford MD - Last Filed: 02/09/20 01:53> Orders Ordered: ED Orders 02/08/20 00:07 OB <= 14 weeks fetus Stat Vital Signs Vital signs: Vital Signs - 8 hr 02/08/20 07:28 Pulse Rate 80 Respiratory Rate 16 Blood Pressure 109/60 Pulse Oximetry 98 <Nathaly Rondon DO - Last Filed: 02/08/20 08:43> Orders Ordered: ED Orders 02/08/20 00:07 OB <= 14 weeks fetus Stat Vital Signs Vital signs: Vital Signs - 8 hr 02/08/20 07:28 Pulse Rate 80 Respiratory Rate 16 Blood Pressure 109/60 Pulse Oximetry 98 [facility] - OB/Uterine Contractions <Marianna Stafford MD - Last Filed: 02/09/20 01:53> Medical Records Attestation: I reviewed the patient's medical records. Lab Data Labs: Lab Results 02/07/20 Range/Units 23:38 Urine Color Yellow Urine Appearance Clear Urine pH 6.5 (4.5-8.0) Ur Specific [place] 1.015 (1.000-1.035) Urine Protein Negative (Negative) Urine Glucose (UA) Negative (Negative) g/dL Urine Ketones Negative (NEGATIVE) Urine Occult Blood Trace-intact (Negative) Urine Nitrate Negative (Negative) Urine Bilirubin Negative (NEGATIVE) Urine Urobilinogen 0.2 (0.2) E.U./dL Ur Leukocyte Esterase Negative (NEGATIVE) Urine RBC None seen (0-5/HPF) Urine WBC None seen (0-5/HPF) Ur Squamous Epith Cells 0-1 /hpf (0-5/HPF) Urine Bacteria None seen (None) Ur Culture Indicated? Cult not indicated Micro UA Comment Microscopic normal Point of Care Testing Test Results Positive Urine Dip Bedside Urine Glucose 100 mg/dl Bedside Urine Bilirubin - Negative Bedside Urine Ketone - Negative Urine Specific [place] 1.020 Bedside Urine Occult Blood +/- Bedside Urine pH 6 Bedside Urine Protein - Negative Bedside Urine Urobilinogen - Negative Bedside Urine Nitrite - Negative Bedside Urine Leukocytes - Negative Esterase Imaging Data US OB: Radiologist's Impression: Discussed with Tech: IUP with heartbeat in lower uterine section. Large subchorionic hemorrhage in the upper portion, 5x7cm. [facility] Narrative Medical decision making narrative: 39-year-old 10 week 5 day gestational age with leaking amniotic fluid, blood tinged, and viable intrauterine fetus appreciated. Patient is from the [facility] has no option for were housing this evening. As this is not an urgent emergency, will ask for a formal ultrasound 1st thing in the morning and after speaking with Dr. Hills, will have her come and evaluate the patient 1st thing in the morning. Patient will board in the emergency room overnight. 6:40 Ultrasound shows of large subchorionic hemorrhage in the upper portion of the uterus tracking toward the os. 5 x 7 cm. Intrauterine fetus with the heartbeat is still noted in the lower portion of the uterus with amniotic fluid still around the fetus. <Nathaly Rondon DO - Last Filed: 02/08/20 08:43> Lab Data Labs: Lab Results 02/07/20 Range/Units 23:38 Urine Color Yellow Urine Appearance Clear Urine pH 6.5 (4.5-8.0) Ur Specific [place] 1.015 (1.000-1.035) Urine Protein Negative (Negative) Urine Glucose (UA) Negative (Negative) g/dL Urine Ketones Negative (NEGATIVE) Urine Occult Blood Trace-intact (Negative) Urine Nitrate Negative (Negative) Urine Bilirubin Negative (NEGATIVE) Urine Urobilinogen 0.2 (0.2) E.U./dL Ur Leukocyte Esterase Negative (NEGATIVE) Urine RBC None seen (0-5/HPF) Urine WBC None seen (0-5/HPF) Ur Squamous Epith Cells 0-1 /hpf (0-5/HPF) Urine Bacteria None seen (None) Ur Culture Indicated? Cult not indicated Micro UA Comment Microscopic normal Point of Care Testing Test Results Positive Urine Dip Bedside Urine Glucose 100 mg/dl Bedside Urine Bilirubin - Negative Bedside Urine Ketone - Negative Urine Specific [place] 1.020 Bedside Urine Occult Blood +/- Bedside Urine pH 6 Bedside Urine Protein - Negative Bedside Urine Urobilinogen - Negative Bedside Urine Nitrite - Negative Bedside Urine Leukocytes - Negative Esterase Imaging Data US - OB: Radiologist's Impression: Single live intrauterine estimated 10 weeks 4 days gestational age large subchorionic hemorrhage measuring 8 x 3.3 x 5.7 cm MDM Narrative Medical decision making narrative: Dr. Hills in ED to see and evaluate patient. At this time no significant blood loss. Patient has been up to the restroom few times without any more bleeding. She will have viability check in [address] Sarmiento. At this time patient has been informed high probability of miscarriage. But plan is to go home expectant management and return if bleeding increases Discharge Plan Departure Patient Disposition: Home Clinical Impression: Amniotic fluid leaking, Intrauterine normal , , threatened Subchorionic hemorrhage Qualifiers: Fetus number: single or unspecified fetus Trimester: first trimester Qualified Code(s): O41.8X10 - Other specified disorders of amniotic fluid and membranes, first trimester, not applicable or unspecified Discharge Date/Time: 02/08/20 08:10 Instructions: Threatened Miscarriage Activity Restrictions/Additional Instructions: *You have been diagnosed with threatened miscarriage *What to do: At this time recommend pelvic rest and elevating your legs. You do have a large subchorionic hemorrhage which is concerning. Dr. ruth has scheduled a viability test for you with Dr. Sarmiento on Tuesday please be in contact with them for details. Pelvic rest nothing in or out of vagina *Continue to take medications as directed *Follow up with your primary care provider in 2-3 days *Return to ER if you should have increased cramping, increased bleeding more than 1-2 pads an hour, dizziness lightheadedness passing out or any new, worsening or concerning symptoms Prescriptions: No Action lorazepam 1 mg tablet 1 mg PO BID-TID PRN (Reason: agitation) Qty: 60 RF: 1 progesterone micronized [Prometrium] 200 mg capsule 200 mg PO BEDTIME Qty: 30 RF: 6 levothyroxine 175 mcg tablet See Rx Instructions PO DAILY Qty: 40 RF: 3 prenat.vits,rhonda,[id number] Tablet 1 tab PO DAILY RF: 0 aspirin [Adult Low Dose Aspirin] 81 mg tablet,delayed release (DR/EC) 81 mg PO DAILY RF: 0 Referrals: Maria R Hills DO [Primary Care Provider] -
[2020-02-07 23:45] LABS: Bacteria Urine None Seen; RBC Urine None Seen (0-5/HPF); WBC Urine None Seen (0-5/HPF)
[2020-02-07 23:48] LABS: Appearance Urine UA CLEAR; Bilirubin Urine UA NEGATIVE (NEGATIVE); Color Urine UA YELLOW; Glucose Urine UA NEGATIVE (Negative); Ketones Urine UA NEGATIVE (NEGATIVE); Leukocyte Esterase Urine UA NEGATIVE (NEGATIVE); Nitrite Urine UA NEGATIVE (Negative); Occult Blood Urine UA TRACE-INTACT (Negative); Protein Urine UA NEGATIVE (Negative); Specific Gravity Urine UA 1.015 (1.000-1.035); Urobilinogen Urine UA 0.2 E.U./dL (0.2)
[2020-02-07 23:49] LABS: pH Urine UA 6.5 (4.5-8.0)
[2020-02-07 23:53] LABS: Culture Indicated Urine Cult Not Indicated; Squamous Epithelial Cell Urine 0-1 /HPF (0-5/HPF); Urine Comments Microscopic Normal
--- NOTE | 2020-02-08 00:07 | DI.US.S_ITS ---
PROCEDURE: US OB <= 14 WEEKS FETUS INDICATIONS: leaking amniotic fluid OUTSIDE/PRIOR DATING DATA: Last menstrual period (LMP): 11/24/2019. LMP-based estimated date of delivery (MARY): 08/30/2020. First dating scan (date and location): 02/08/2020. Estimated date of delivery (MARY) from first dating scan: 09/01/2020. TECHNIQUE: Real-time scanning was performed of the fetus and maternal pelvic organs, with image documentation. Endovaginal scanning was also performed to better visualize the fetus and maternal ovaries. COMPARISON: [facility], , OB >= 14 WEEKS FETUS, 02/05/2020, 9:20. [facility], , OB <= 14 WEEKS FETUS, 01/16/2020, 11:13. FINDINGS: Embryo: [place]-rump length measures 3.6 cm, 10 weeks 4 days. heart rate 163 BPM. The amniotic fluid is subjectively normal in this early gestation. Large subchorionic hemorrhage measuring 8 x 5.7 x 3.3 cm which is new compared to the prior exam. Measurement variability in dating: +/- 4 weeks by LMP, +/- 7 days by mean sac diameter (use before 6 weeks gestation if crown-rump length not able to be measured), +/- 5 days by crown-rump length (up to 8 weeks 6 days gestation), +/- 7 days by crown-rump length (up to 13 weeks 6 days gestation). Maternal organs: Ovaries are not well seen. IMPRESSION: 1. Webb living intrauterine at 10 weeks 4 days based on today's crown rump length. heart rate 163 BPM. 2. New large perigestational hemorrhage measuring 8 cm. Dictated by: Albino Avila M.D. on 02/08/2020 at 8:14 Approved by: Albino Avila M.D. on 02/08/2020 at 8:18
[2020-02-08 07:28] VITALS: BP 109/60; PULSE 80; RESP 16; O2SAT 98
--- NOTE | 2020-02-08 07:37 | P.CONS_ITS ---
History of Present Illness Consult details Date Patient Seen: 02/08/20 Time Patient Seen: 07:15 Chief complaint: 10 wks , bleeding Reason for consult: Bleeding in early Requesting provider: Marianna Stafford Narrative: Patient is a 39-year-old at 10 weeks and 6 days gestation who came in to the ER last night with vaginal bleeding. Yesterday evening she had a gush of watery blood. She continued to fill a pad so [place] the [place] her . She just had a normal US with Dr. Sarmiento on 02/05/20. Her last two pregnancies resulted in miscarriages, the last requiring D&C. Bedside US in the ER showed a heart rate of 170. Patient boarded in the ER overnight since she [place] far away. Bleeding decreased and was down to brown spotting this morning. She denies cramping or pain. Meds Home Medications and Allergies Home Medications Medication Instructions Recorded Confirmed Type lorazepam 1 mg tablet 1 mg PO BID-TID PRN #60 tab 12/20/19 02/05/20 Rx progesterone micronized 200 mg 200 mg PO BEDTIME #30 cap 01/01/20 02/05/20 Rx capsule levothyroxine 175 mcg tablet See Rx Instructions PO DAILY #40 01/07/20 02/05/20 Rx tab aspirin 81 mg tablet,delayed 81 mg PO DAILY 01/31/20 02/05/20 History release prenat.vits,rhonda,wke-jvin-ulwfd 1 tab PO DAILY 01/31/20 02/05/20 History Allergies Allergy/AdvReac Type Severity Reaction Status Date / Time morphine AdvReac Intermediate ITCHING Verified 02/05/20 09:28 allergic rhinitis Allergy Intermediate Seasonal Uncoded 02/05/20 09:28 allergy Review of Systems Constitutional Constitutional: Denies fatigue and Denies fever(s) Cardiovascular Cardiovascular: Denies chest pain, Denies leg edema and Denies dyspnea Respiratory Respiratory: Denies cough and Denies dyspnea Gastrointestinal Gastrointestinal: Denies abdominal pain, Denies nausea and Denies vomiting Genitourinary Genitourinary: Reports as per HPI Endocrine Endocrine: Denies fatigue Exam Vital Signs (past 8 hours): - 02/08/20 07:28 Pulse Rate 80 Respiratory Rate 16 Blood Pressure 109/60 Pulse Oximetry 98 Oxygen Delivery Method Room Air Narrative Exam Narrative: General: Well-appearing woman sitting up in bed, no distress CV: RRR, no murmur Lungs: CTAB Abdomen: Bowel tones active x4, mild tenderness to palpation in suprapubic region, otherwise nontender. Pelvic exam deferred. Extremities: No edema Objective Labs Labs: Laboratory Results - last 24 hr 02/07/20 23:38 Urine Color Yellow Urine Appearance Clear Urine pH 6.5 Ur Specific [place] 1.015 Urine Protein Negative Urine Glucose (UA) Negative Urine Ketones Negative Urine Occult Blood Trace-intact Urine Nitrate Negative Urine Bilirubin Negative Urine Urobilinogen 0.2 Ur Leukocyte Esterase Negative Urine RBC None seen Urine WBC None seen Ur Squamous Epith Cells 0-1 /hpf Urine Bacteria None seen Ur Culture Indicated? Cult not indicated Micro UA Comment Microscopic normal Assessment & Plan Assessment and plan (1) , threatened: Status: Acute (2) Subchorionic hemorrhage: Qualifiers: Fetus number: single or unspecified fetus Trimester: first trimester Qualified Code(s): O41.8X10 - Other specified disorders of amniotic fluid and membranes, first trimester, not applicable or unspecified; O46.8X1 - Other antepartum hemorrhage, first trimester Status: Acute Assessment & Plan narrative: Patient is a 39 year old at 10 weeks and 6 days with a threatened . Formal ultrasound this morning showed a viable fetus with heart rate 163 and a 5x7 cm subchorionic hemorrhage. Counseled patient and her on the risk of miscarriage but right now the is still viable. Bleeding has decreased significantly. Recommended she rest over the weekend and follow up with Dr. Sarmiento early next week for a viability check. She was advised to stop her baby aspirin given bleeding but continue progesteron e. She will call if bleeding increases over the weekend.
== END 2020-02-08 08:10 | disposition home or self-care (01) ==
PROVIDERS: Emergency Medicine; Emergency Provider Emergency Medicine; PCP Family Medicine
DX: O41.8X10 Other specified disorders of amniotic fluid and membranes, first trimester, not applicable or unspecified (principal); O20.0 Threatened abortion; Z3A.10 10 weeks gestation of pregnancy
CPT/HCPCS: 76801; 76817; 81001; 81003; 81025; 99282; 99283

== ENCOUNTER → 2020-04-01 10:07 | Outpatient (CLI) | payer OTHER, MEDICAID, SELFPAY ==
[2019-10-15 13:32] VITALS: BMI 31.3
[2020-04-01 12:55] LABS: Add Manual Diff / Slide Review NO; Basophils Absolute Auto 0 /uL (0-100); Basophils Percent Auto 0.3 % (0-2); Eosinophils Absolute Auto 100 /uL (0-450); Eosinophils Percent Auto 0.5 % (2-4); Hematocrit 39.1 % (36-46); Hemoglobin 13.2 g/dL (12.0-16.0); Lymphocytes Absolute Auto 2300 /uL (1100-4500); Lymphocytes Percent Auto 23.1 % (25-40); Mean Corpuscular HGB Conc 33.6 % (30-36); Mean Corpuscular Hemoglobin 29.4 PG (26-34); Mean Corpuscular Volume 87.6 fL (80-100); Monocytes Absolute Auto 400 /uL (0-900); Monocytes Percent Auto 3.7 % (3-14); Neutrophils Absolute Auto 7200 /uL (1500-7000); Neutrophils Percent Auto 72.4 % (50-75); Platelet Count 262 X10^3/uL (150-400); Red Blood Cell Count 4.47 X10^6/uL (4.0-5.2); Red Cell Distribution Width 14.6 % (11.6-14.8)
[2020-04-01 13:45] LABS: Free T4, Direct Thyroxine 1.11 ng/dL (0.78-2.19)
[2020-04-01 13:58] LABS: Thyroid Stimulating Hormone 1.02 uIU/mL (0.47-4.68)
== END ==
PROVIDERS: Obstetrics & Gynecology; PCP Family Medicine; Referring Provider Family Medicine; Visit Provider Family Medicine
DX: O44.00 Complete placenta previa NOS or without hemorrhage, unspecified trimester (principal); E03.9 Hypothyroidism, unspecified
CPT/HCPCS: 36415; 84439; 84443; 85025; 87491; 87591

== ENCOUNTER → 2020-08-01 09:36 | Outpatient (CLI) | payer OTHER, MEDICAID, SELFPAY ==
[2019-10-15 13:32] VITALS: BMI 31.3
[2020-08-01 20:28] LABS: Alanine Aminotransferase 16 IU/L (<35); Albumin 4.1 g/dL (3.5-5.0); Albumin Globulin Ratio 1.4 (1.0-2.8); Alkaline Phosphatase 97 U/L (38-126); Aspartate Aminotransferase 22 IU/L (14-36); BUN Creatinine Ratio 14.9 (6-22); Bilirubin Total 0.3 mg/dL (0.2-1.3); Blood Urea Nitrogen 11 mg/dL (7-17); Calcium 9.6 mg/dL (8.4-10.2); Carbon Dioxide 27 mmol/L (22-32); Chloride 105 mmol/L (98-107); Estimated Glomerular Filt Rate > 60.0 mL/min (>60); Glucose 99 mg/dL (70-100); HEMOLYSIS 19 (0-50); Potassium 4.3 mmol/L (3.4-5.1); Sodium 139 mmol/L (137-145); Total Protein 7.1 g/dL (6.3-8.2)
[2020-08-01 20:34] LABS: Add Manual Diff / Slide Review NO; Basophils Absolute Auto 0 /uL (0-100); Basophils Percent Auto 0.5 % (0-2); Eosinophils Absolute Auto 100 /uL (0-450); Eosinophils Percent Auto 2.1 % (2-4); Hematocrit 40.6 % (36-46); Hemoglobin 13.3 g/dL (12.0-16.0); Lymphocytes Absolute Auto 2000 /uL (1100-4500); Lymphocytes Percent Auto 32.3 % (25-40); Mean Corpuscular HGB Conc 32.6 % (30-36); Mean Corpuscular Hemoglobin 27.3 PG (26-34); Mean Corpuscular Volume 83.7 fL (80-100); Monocytes Absolute Auto 300 /uL (0-900); Monocytes Percent Auto 4.6 % (3-14); Neutrophils Absolute Auto 3800 /uL (1500-7000); Neutrophils Percent Auto 60.5 % (50-75); Platelet Count 323 X10^3/uL (150-400); Red Blood Cell Count 4.86 X10^6/uL (4.0-5.2); Red Cell Distribution Width 14.7 % (11.6-14.8); White Blood Cell Count 6.3 X10^3/uL (4.5-11.0)
[2020-08-01 20:59] LABS: Free T4, Direct Thyroxine 0.72 ng/dL (0.78-2.19)
[2020-08-01 21:13] LABS: Thyroid Stimulating Hormone 0.534 uIU/mL (0.47-4.68)
[2020-08-09 20:38] LABS: Estrogen 239 pg/mL (.)
== END ==
PROVIDERS: Family Provider Family Medicine; PCP Family Medicine; Visit Provider Family Medicine
DX: O09.40 Supervision of pregnancy with grand multiparity, unspecified trimester (principal); O46.90 Antepartum hemorrhage, unspecified, unspecified trimester; E03.9 Hypothyroidism, unspecified
CPT/HCPCS: 80053; 82672; 84439; 84443; 85025

== ENCOUNTER → 2020-08-15 08:33 | Outpatient (CLI) | payer OTHER, MEDICAID, SELFPAY ==
[2019-10-15 13:32] VITALS: BMI 31.3
[2020-08-15 20:04] LABS: Cholesterol 216 mg/dL (140-199); HDL Cholesterol 55 mg/dL (40-60); LDL Cholesterol Calculated 144 mg/dL (<100); Triglycerides 86 mg/dL (35-150)
[2020-08-15 20:16] LABS: Follicle Stimulating Hormone 3.14 mIU/mL; Luteinizing Hormone 1.87 mIU/mL
== END ==
PROVIDERS: Family Provider Family Medicine; PCP Family Medicine; Visit Provider Family Medicine
DX: E78.5 Hyperlipidemia, unspecified (principal)
CPT/HCPCS: 80061; 83001; 83002

== ENCOUNTER 2020-09-17 15:53 | Emergency (ER) | payer OTHER, MEDICAID, SELFPAY ==
[2019-10-15 13:32] VITALS: BMI 31.3
[2020-09-17 15:56] VITALS: BP 120/73; PULSE 70; RESP 18; TEMP 36.4; O2SAT 98
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
--- NOTE | 2020-09-17 17:05 | PC.NURSE ---
Patient hit head yesterday, Saw chiropractor today for manipulation, immediately after manipulation brenner of nausea, headache, light sensitivity.
--- NOTE | 2020-09-17 17:06 | DI.CT.S_ITS ---
PROCEDURE: CT ANGIO HEAD AND NECK INDICATIONS: vomiting, headache, neck pain sp chiro TECHNIQUE: Pre-contrast 4.5 mm thick sections acquired from the foramen magnum to the vertex. After the administration of intravenous contrast, 1 mm thick sections acquired from the aortic arch through the [place] of [place]. Post-contrast 4.5 mm thick sections then re-acquired from the foramen magnum to the vertex. 3-dimensional locexll-otvmgemrs-xozpovynnj (MIP) and/or volume rendering reformats were acquired of the central intracranial vasculature and neck separately. COMPARISON: None. FINDINGS: Image quality: Excellent. BRAIN: CSF spaces: Ventricles are normal in size and shape. Basal cisterns are patent. No extra-axial fluid collections. Brain: No midline shift. No intracranial bleeds or masses. Hill-white matter interface appears intact. Skull and face: Calvarium and facial bones appear intact, without suspicious lesions. Orbits appear normal. Sinuses: Sinuses and mastoids are clear. HEAD CT ANGIOGRAPHY: Anterior circulation: Intracranial internal carotid arteries are normal in size and flow. The flow within the paired anterior cerebral arteries is normal and symmetric. The flow within the middle cerebral arteries is normal and symmetric. The anterior communicating artery is seen. No aneurysms are seen. Posterior circulation: Visualized portions of the vertebral arteries demonstrate normal caliber, and join to form a normal appearing basilar artery. Flow within the posterior cerebral arteries is normal and symmetric. No aneurysms are seen. NECK CT ANGIOGRAPHY: Carotid system: The great vessels demonstrate a conventional anatomy as they arise from the aortic arch. The origins of the common carotid arteries appear patent. The common carotid arteries demonstrate normal caliber and courses. The bifurcation regions are both widely patent. The internal carotid arteries demonstrate normal calibers and courses. Posterior circulation: The origins of the vertebral arteries both appear widely patent. The more superior extracranial portions of both vertebral arteries also demonstrate normal courses and calibers. They join to form a normal appearing basilar artery. Soft tissues: Visualized neck soft tissues demonstrate no suspicious abnormalities. Bones: No suspicious bony lesions. Visualized cervical spine appears normally aligned. IMPRESSION: 1. No acute process involving the arterial tree of the head and neck. 2. No acute intracranial abnormality. Any quantitative measurements of stenosis were performed using NASCET criteria. Dictated by: Sonja Lorenz M.D. on 09/17/2020 at 17:43 Approved by: Sonja Lorenz M.D. on 09/17/2020 at 17:47
[2020-09-17 17:08] LABS: Add Manual Diff / Slide Review NO; Basophils Absolute Auto 100 /uL (0-100); Basophils Percent Auto 0.6 % (0-2); Eosinophils Absolute Auto 0 /uL (0-450); Eosinophils Percent Auto 0.2 % (2-4); Hematocrit 42.7 % (36-46); Lymphocytes Absolute Auto 1300 /uL (1100-4500); Lymphocytes Percent Auto 13.7 % (25-40); Mean Corpuscular HGB Conc 32.8 % (30-36); Mean Corpuscular Volume 82.2 fL (80-100); Monocytes Absolute Auto 200 /uL (0-900); Monocytes Percent Auto 2.1 % (3-14); Neutrophils Absolute Auto 8000 /uL (1500-7000); Neutrophils Percent Auto 83.4 % (50-75); Platelet Count 323 X10^3/uL (150-400); Red Blood Cell Count 5.19 X10^6/uL (4.0-5.2); Red Cell Distribution Width 15.4 % (11.6-14.8); White Blood Cell Count 9.6 X10^3/uL (4.5-11.0)
[2020-09-17 17:50] LABS: Alanine Aminotransferase 17 IU/L (<35); Albumin 4.3 g/dL (3.5-5.0); Albumin Globulin Ratio 1.3 (1.0-2.8); Alkaline Phosphatase 94 U/L (38-126); Aspartate Aminotransferase 24 IU/L (14-36); BUN Creatinine Ratio 14.7 (6-22); Bilirubin Total 0.4 mg/dL (0.2-1.3); Blood Urea Nitrogen 10 mg/dL (7-17); Calcium 9.3 mg/dL (8.4-10.2); Carbon Dioxide 28 mmol/L (22-32); Chloride 104 mmol/L (98-107); Estimated Glomerular Filt Rate > 60.0 mL/min (>60); Globulin 3.4 g/dL (1.7-4.1); Glucose 113 mg/dL (70-100); HEMOLYSIS < 15 (0-50); Potassium 4.1 mmol/L (3.4-5.1); Sodium 139 mmol/L (137-145); Total Protein 7.7 g/dL (6.3-8.2)
[2020-09-17] MEDS: KETOROLAC 30 MG/ML VIAL IV (18:06)
[2020-09-17] MEDS: SODIUM CHLORIDE 0.9% 1,000 ML 1000 ML IV (18:07)
[2020-09-17 18:26] VITALS: BP 123/74; PULSE 73; RESP 12; O2SAT 100
== END 2020-09-17 18:41 | disposition home or self-care (01) ==
PROVIDERS: Emergency Provider Nurse Practitioner Family; Family Provider Family Medicine; PCP Family Medicine
DX: S06.0X0A Concussion without loss of consciousness, initial encounter (principal); R51.9 Headache, unspecified; R11.0 Nausea; W22.8XXA Striking against or struck by other objects, initial encounter
CPT/HCPCS: 36415; 70496; 70498; 80053; 85025; 96361; 96374; 99284; J1885; Q9967

== ENCOUNTER 2020-11-05 09:45 | Outpatient (RCR) | payer OTHER, MEDICAID, SELFPAY ==
[2019-10-15 13:32] VITALS: BMI 31.3
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
--- NOTE | 2020-08-19 12:30 | PT.OTN ---
Current Diagnoses Other specified disorders of muscle (08/19/20) Physical Therapy Treatment Note PT-OP-A Visit Information Start: 08/12/20 09:47 Freq: Status: Active Protocol: Document 08/19/20 09:47 [facility] (Rec: 08/19/20 10:21 [facility] [id number]) Out-Patient Physical Therapy Visit Information Visit Information Visit Type Treatment Note Visit Start Time 09:47 Visit Stop Time 10:30 Total Visit Minutes 42 Visit Number 2 PT-OP-B Current Condition Start: 08/12/20 09:47 Freq: Status: Active Protocol: Document 08/12/20 09:45 [facility] (Rec: 08/12/20 10:05 [facility] [id number]) Current Condition History of Current Condition Onset Date 04/21/20 History of Current Condition pt was 21 weeks with placenta previa and had to have emergent C section hysterectomy at and her baby lived x 4 hours. A vertical incision was used. Pt reports she almost bled to and needed multiple blood transfusions. Her bladder was adhered to her uterus and it had to be cut off the uterus. Stefany required catheritization x 2 weeks following. She reports The top of my vagina folds in on itself and the sides have prolapsed. 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 She lost iva daughter at 9-14 weejs gestation with trisomy 13, and subsequent D& C on 08/30. Hx of cervical fusion October 2019 C 5-6 At this point she reports she has lack of feeling in her pelvic floor. Lack of sensation during intercourse. Stefany reports when she goes to the bathroom she cant feel if her bladder is full, she has to bear down. She has 6 kids at home. 12, 10 8, 8, 4, 2 years old. Prior Treatments and Tests Dr. Noel at did her surgery Treatment Goals Patient/Caregiver Goals pt goals include restoring sensation and strength for her pelvic floor PT-OP-C Subjective Start: 08/12/20 09:47 Freq: Status: Active Protocol: Document 08/19/20 09:47 [facility] (Rec: 08/19/20 10:21 [facility] [id number]) OP-PT Subjective Patient Comments Patient Comments jaw clenching from her medicine has continued so she is weaning her self off of it with her doctors guidance. PT-OP-F Manual Assessment Start: 08/12/20 09:47 Freq: Status: Active Protocol: Document 08/12/20 09:45 [facility] (Rec: 08/12/20 17:21 [facility] [email or web address]) Manual Assessments Soft Tissue Assessment Soft Tissue Mobility Assessment scar tissue present with the hysterectomy scar in the suprapubic fascia and over the bladder, decreased mobility of the bladder with visceral mobilization PT-OP-I Pelvic Floor Start: 08/12/20 09:47 Freq: Status: Active Protocol: Document 08/12/20 09:45 [facility] (Rec: 08/12/20 17:24 [facility] [email or web address]) Pelvic Floor Assessment Pelvic Clock Pelvic Clock 12-3 Guarding Pelvic Clock 3-6 Guarding,Hypertonic,Tenderness Pelvic Clock Other guarding of the left lateral wall of the levator ani and difficulty relaxing the levator ani following a contraction Contraction Ability Voluntary Contraction Weak Voluntary Relaxation Weak Manual Muscle Testing Left 2 Manual Muscle Testing Right 3 Manual Muscle Testing Anterior 2 Manual Muscle Testing Posterior 3 Muscle Endurance (Seconds) 4 PT-OP-M Strength Start: 08/12/20 09:47 Freq: Status: Active Protocol: Document 08/12/20 09:45 [facility] (Rec: 08/13/20 10:12 [facility] [email or web address]) Trunk Strength Trunk Manual Muscle Testing Testing Position Supine Flexion 3 Fair Core Stabilization poor TA activation and core stabilization, decreased pelvic floor strength ( see pelvic floor section) PT-OP-Q Treatments Start: 08/12/20 09:47 Freq: Status: Active Protocol: Document 08/19/20 09:47 [facility] (Rec: 08/19/20 10:21 [facility] [id number]) Therapeutic Exercises Supine Exercises pelvic floor long holds Reps/Minutes 10 reps x 10 seconds Comments 13.9, 24.9 Manual Therapy Treatment Soft Tissue Mobilization bladder visceral mobilizations Mobilization Type Myofascial Release Intensity/Depth Superficial Body Position Hooklying Comments increased gentle bladder visceral mobilizations as well as suprapubic fascia Neuro Re-Education Treatment Other Activities NMES Details NMES for the pelvic floor Reps/Duration 10 minutes Comments worked on continous mode for increasing sensation, she feels sensation on the left side of her pelvic floor and felt a slight sensation on the right for a second. PT-OP-T Assessment and Plan Start: 08/12/20 09:47 Freq: Status: Active Protocol: Document 08/19/20 09:45 [facility] (Rec: 08/19/20 12:30 [facility] [id number]) Physical Therapy Assessment Assessment Summary Assessment I began both NMES and EMB biofeedback for Stefany today. Her resting tone and sensation are the greatest challanges at this time. SHe tolerated both well and I gave her 1-2 sets per day of pelvic floor exercises working on relaxed awareness in between pelvic floor contractions. I was able to release a littel more today in her suprapubic fascia with good toelrance. Physical Therapy Plan Frequency and Duration Frequency of Treatment 1x/Week Duration of Treatment 8 Plan of Care Start Date 08/12/20 Plan of Care End Date 10/07/20 Therapeutic Interventions Therapeutic Interventions Home Exercise Program,Manual Therapy,Neuromuscular Re- education,Patient/Caregiver Education,Self-Care/Home Management,Soft Tissue Mobilization,Therapeutic Exercises Modalities Biofeedback,Electric Stimulation Next Visit Focus/Plan Next Note Type Treatment Note Next Visit Plan Continue EMG biofeedback, review happy baby stretch, NMES, manual therapy techniques for scar tissue and baldder mobility
--- NOTE | 2020-08-26 12:24 | PT.OTN ---
Current Diagnoses Other specified disorders of muscle (08/26/20) Physical Therapy Treatment Note PT-OP-A Visit Information Start: 08/12/20 09:47 Freq: Status: Active Protocol: Document 08/26/20 09:48 [facility] (Rec: 08/26/20 10:16 [facility] [id number]) Out-Patient Physical Therapy Visit Information Visit Information Visit Type Treatment Note Visit Start Time 09:50 Visit Stop Time 10:30 Total Visit Minutes 40 PT-OP-B Current Condition Start: 08/12/20 09:47 Freq: Status: Active Protocol: Document 08/12/20 09:45 [facility] (Rec: 08/12/20 10:05 [facility] [id number]) Current Condition History of Current Condition Onset Date 04/21/20 History of Current Condition pt was 21 weeks with placenta previa and had to have emergent C section hysterectomy at and her baby lived x 4 hours. A vertical incision was used. Pt reports she almost bled to and needed multiple blood transfusions. Her bladder was adhered to her uterus and it had to be cut off the uterus. Stefany required catheritization x 2 weeks following. She reports The top of my vagina folds in on itself and the sides have prolapsed. 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 She lost iva daughter at 9-14 weejs gestation with trisomy 13, and subsequent D& C on 08/30. Hx of cervical fusion October 2019 C 5-6 At this point she reports she has lack of feeling in her pelvic floor. Lack of sensation during intercourse. Stefany reports when she goes to the bathroom she cant feel if her bladder is full, she has to bear down. She has 6 kids at home. 12, 10 8, 8, 4, 2 years old. Prior Treatments and Tests Dr. Noel at did her surgery Treatment Goals Patient/Caregiver Goals pt goals include restoring sensation and strength for her pelvic floor PT-OP-C Subjective Start: 08/12/20 09:47 Freq: Status: Active Protocol: Document 08/26/20 09:48 [facility] (Rec: 08/26/20 10:16 [facility] [id number]) OP-PT Subjective Patient Comments Patient Comments She could void better after last treatment, things are noticibaly better. PT-OP-F Manual Assessment Start: 08/12/20 09:47 Freq: Status: Active Protocol: Document 08/12/20 09:45 [facility] (Rec: 08/12/20 17:21 [facility] [email or web address]) Manual Assessments Soft Tissue Assessment Soft Tissue Mobility Assessment scar tissue present with the hysterectomy scar in the suprapubic fascia and over the bladder, decreased mobility of the bladder with visceral mobilization PT-OP-I Pelvic Floor Start: 08/12/20 09:47 Freq: Status: Active Protocol: Document 08/12/20 09:45 [facility] (Rec: 08/12/20 17:24 [facility] [email or web address]) Pelvic Floor Assessment Pelvic Clock Pelvic Clock 12-3 Guarding Pelvic Clock 3-6 Guarding,Hypertonic,Tenderness Pelvic Clock Other guarding of the left lateral wall of the levator ani and difficulty relaxing the levator ani following a contraction Contraction Ability Voluntary Contraction Weak Voluntary Relaxation Weak Manual Muscle Testing Left 2 Manual Muscle Testing Right 3 Manual Muscle Testing Anterior 2 Manual Muscle Testing Posterior 3 Muscle Endurance (Seconds) 4 PT-OP-M Strength Start: 08/12/20 09:47 Freq: Status: Active Protocol: Document 08/12/20 09:45 [facility] (Rec: 08/13/20 10:12 [facility] [email or web address]) Trunk Strength Trunk Manual Muscle Testing Testing Position Supine Flexion 3 Fair Core Stabilization poor TA activation and core stabilization, decreased pelvic floor strength ( see pelvic floor section) PT-OP-Q Treatments Start: 08/12/20 09:47 Freq: Status: Active Protocol: Document 08/26/20 09:48 [facility] (Rec: 08/26/20 10:26 [facility] [id number]) Therapeutic Exercises Supine Exercises TA with march Reps/Minutes x 5 Comments cues to keep the low back from arching. TA isolations in supine Comments pt educated on TA isolations pelvic floor long holds Reps/Minutes 10 reps x 10 seconds Comments 13.9 32.5 Manual Therapy Treatment Soft Tissue Mobilization bladder visceral mobilizations Mobilization Type Myofascial Release Intensity/Depth Superficial Body Position Hooklying Comments increased gentle bladder visceral mobilizations as well as suprapubic fascia Neuro Re-Education Treatment Other Activities NMES Details NMES for the pelvic floor Reps/Duration 8 minutes Comments worked on continous mode for increasing sensation, she feels sensation on the left side of her pelvic floor and felt a slight sensation on the right for a second. PT-OP-T Assessment and Plan Start: 08/12/20 09:47 Freq: Status: Active Protocol: Document 08/26/20 09:45 [facility] (Rec: 08/26/20 12:23 [facility] [email or web address]) Physical Therapy Assessment Assessment Summary Assessment Stefany plans on ordering a home NMES unit. I worked with her on setting C and she noted improved sensation with intercourse after last visit. The ability to mobiilze her bladder was improved today. Physical Therapy Plan Frequency and Duration Frequency of Treatment 1x/Week Duration of Treatment 8 Plan of Care Start Date 08/12/20 Plan of Care End Date 10/07/20 Therapeutic Interventions Therapeutic Interventions Home Exercise Program,Manual Therapy,Neuromuscular Re- education,Patient/Caregiver Education,Self-Care/Home Management,Soft Tissue Mobilization,Therapeutic Exercises Modalities Biofeedback,Electric Stimulation Next Visit Focus/Plan Next Note Type Treatment Note Next Visit Plan Continue EMG biofeedback, review happy baby stretch, NMES, manual therapy techniques for scar tissue and bladder mobility
--- NOTE | 2020-09-02 10:03 | PT.OTN ---
Current Diagnoses Other specified disorders of muscle (09/02/20) Physical Therapy Treatment Note PT-OP-A Visit Information Start: 08/12/20 09:47 Freq: Status: Active Protocol: Document 09/02/20 09:46 [facility] (Rec: 09/02/20 10:31 [facility] [id number]) Out-Patient Physical Therapy Visit Information Visit Information Visit Type Treatment Note Visit Start Time 09:45 Visit Stop Time 10:40 Total Visit Minutes 45 Visit Number 4 PT-OP-B Current Condition Start: 08/12/20 09:47 Freq: Status: Active Protocol: Document 08/12/20 09:45 [facility] (Rec: 08/12/20 10:05 [facility] [id number]) Current Condition History of Current Condition Onset Date 04/21/20 History of Current Condition pt was 21 weeks with placenta previa and had to have emergent C section hysterectomy at and her baby lived x 4 hours. A vertical incision was used. Pt reports she almost bled to and needed multiple blood transfusions. Her bladder was adhered to her uterus and it had to be cut off the uterus. Stefany required catheritization x 2 weeks following. She reports The top of my vagina folds in on itself and the sides have prolapsed. 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 She lost iva daughter at 9-14 weejs gestation with trisomy 13, and subsequent D& C on 08/30. Hx of cervical fusion October 2019 C 5-6 At this point she reports she has lack of feeling in her pelvic floor. Lack of sensation during intercourse. Stefany reports when she goes to the bathroom she cant feel if her bladder is full, she has to bear down. She has 6 kids at home. 12, 10 8, 8, 4, 2 years old. Prior Treatments and Tests Dr. Noel at did her surgery Treatment Goals Patient/Caregiver Goals pt goals include restoring sensation and strength for her pelvic floor PT-OP-C Subjective Start: 08/12/20 09:47 Freq: Status: Active Protocol: Document 09/02/20 09:46 [facility] (Rec: 09/02/20 10:31 [facility] [id number]) OP-PT Subjective Patient Comments Patient Comments Pt ordered the NMES machine and it will be here next week. PT-OP-F Manual Assessment Start: 08/12/20 09:47 Freq: Status: Active Protocol: Document 08/12/20 09:45 [facility] (Rec: 08/12/20 17:21 [facility] [email or web address]) Manual Assessments Soft Tissue Assessment Soft Tissue Mobility Assessment scar tissue present with the hysterectomy scar in the suprapubic fascia and over the bladder, decreased mobility of the bladder with visceral mobilization PT-OP-I Pelvic Floor Start: 08/12/20 09:47 Freq: Status: Active Protocol: Document 08/12/20 09:45 [facility] (Rec: 08/12/20 17:24 [facility] [email or web address]) Pelvic Floor Assessment Pelvic Clock Pelvic Clock 12-3 Guarding Pelvic Clock 3-6 Guarding,Hypertonic,Tenderness Pelvic Clock Other guarding of the left lateral wall of the levator ani and difficulty relaxing the levator ani following a contraction Contraction Ability Voluntary Contraction Weak Voluntary Relaxation Weak Manual Muscle Testing Left 2 Manual Muscle Testing Right 3 Manual Muscle Testing Anterior 2 Manual Muscle Testing Posterior 3 Muscle Endurance (Seconds) 4 PT-OP-M Strength Start: 08/12/20 09:47 Freq: Status: Active Protocol: Document 08/12/20 09:45 [facility] (Rec: 08/13/20 10:12 [facility] [email or web address]) Trunk Strength Trunk Manual Muscle Testing Testing Position Supine Flexion 3 Fair Core Stabilization poor TA activation and core stabilization, decreased pelvic floor strength ( see pelvic floor section) PT-OP-Q Treatments Start: 08/12/20 09:47 Freq: Status: Active Protocol: Document 09/02/20 09:46 [facility] (Rec: 09/02/20 10:31 [facility] [id number]) Therapeutic Exercises Supine Exercises diaphragmatic breathing Reps/Minutes x 10 reps Comments inhale x 4 exhale x 6 pelvic floor long holds Reps/Minutes 10 seconds on 10 seconds off Manual Therapy Treatment Soft Tissue Mobilization bladder visceral mobilizations Mobilization Type Myofascial Release Intensity/Depth Superficial Body Position Hooklying Comments increased gentle bladder visceral mobilizations as well as suprapubic fascia ILU massage over the colon Body Location abdominal wall Mobilization Type Myofascial Release Intensity/Depth Moderate Body Position Hooklying Comments pt educated in self ILU massage for home Neuro Re-Education Treatment Other Activities NMES Details NMES for the pelvic floor Reps/Duration 10 min Comments worked on continous mode for increasing sensation, she feels sensation on the left side of her pelvic floor and felt a slight sensation on the right for a second. PT-OP-T Assessment and Plan Start: 08/12/20 09:47 Freq: Status: Active Protocol: Document 09/02/20 09:46 [facility] (Rec: 09/02/20 10:31 [facility] [id number]) Physical Therapy Assessment Assessment Summary Assessment pt was as low as 1.9 uv today and 14.4 uv max, improved relaxation of the pelvic floor today. Worked on diaphragmatic breathing as pt had experienced a panic episode prior to PT today Physical Therapy Plan Frequency and Duration Frequency of Treatment 1x/Week Duration of Treatment 8 Plan of Care Start Date 08/12/20 Plan of Care End Date 10/07/20 Therapeutic Interventions Therapeutic Interventions Home Exercise Program,Manual Therapy,Neuromuscular Re- education,Patient/Caregiver Education,Self-Care/Home Management,Soft Tissue Mobilization,Therapeutic Exercises Modalities Biofeedback,Electric Stimulation Next Visit Focus/Plan Next Note Type Treatment Note Next Visit Plan progress abdominal stabilization and continue to work on contract/relax of the pelvic floor. review jose jimenez with pt for trigger point release
--- NOTE | 2020-09-09 11:38 | PT.OTN ---
Current Diagnoses Other specified disorders of muscle (09/09/20) Physical Therapy Treatment Note PT-OP-A Visit Information Start: 08/12/20 09:47 Freq: Status: Active Protocol: Document 09/09/20 11:30 [facility] (Rec: 09/09/20 11:38 [facility] [email or web address]) Out-Patient Physical Therapy Visit Information Visit Information Visit Type Treatment Note Visit Start Time 09:45 Visit Stop Time 10:30 Total Visit Minutes 45 Visit Number 5 PT-OP-B Current Condition Start: 08/12/20 09:47 Freq: Status: Active Protocol: Document 08/12/20 09:45 [facility] (Rec: 08/12/20 10:05 [facility] [id number]) Current Condition History of Current Condition Onset Date 04/21/20 History of Current Condition pt was 21 weeks with placenta previa and had to have emergent C section hysterectomy at and her baby lived x 4 hours. A vertical incision was used. Pt reports she almost bled to and needed multiple blood transfusions. Her bladder was adhered to her uterus and it had to be cut off the uterus. Stefany required catheritization x 2 weeks following. She reports The top of my vagina folds in on itself and the sides have prolapsed. 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 She lost iva daughter at 9-14 weejs gestation with trisomy 13, and subsequent D& C on 08/30. Hx of cervical fusion October 2019 C 5-6 At this point she reports she has lack of feeling in her pelvic floor. Lack of sensation during intercourse. Stefany reports when she goes to the bathroom she cant feel if her bladder is full, she has to bear down. She has 6 kids at home. 12, 10 8, 8, 4, 2 years old. Prior Treatments and Tests Dr. Noel at did her surgery Treatment Goals Patient/Caregiver Goals pt goals include restoring sensation and strength for her pelvic floor PT-OP-C Subjective Start: 08/12/20 09:47 Freq: Status: Active Protocol: Document 09/09/20 11:30 [facility] (Rec: 09/09/20 11:38 [facility] [email or web address]) OP-PT Subjective Patient Comments Patient Comments the NMES machine was delivered and given to pt today. She reports she has not been able to feel when to void, also it has been harder to void. She also reports she done heavy lifting activities for her husbands work including lifting a trailer. PT-OP-F Manual Assessment Start: 08/12/20 09:47 Freq: Status: Active Protocol: Document 08/12/20 09:45 [facility] (Rec: 08/12/20 17:21 [facility] [email or web address]) Manual Assessments Soft Tissue Assessment Soft Tissue Mobility Assessment scar tissue present with the hysterectomy scar in the suprapubic fascia and over the bladder, decreased mobility of the bladder with visceral mobilization PT-OP-I Pelvic Floor Start: 08/12/20 09:47 Freq: Status: Active Protocol: Document 08/12/20 09:45 [facility] (Rec: 08/12/20 17:24 [facility] [email or web address]) Pelvic Floor Assessment Pelvic Clock Pelvic Clock 12-3 Guarding Pelvic Clock 3-6 Guarding,Hypertonic,Tenderness Pelvic Clock Other guarding of the left lateral wall of the levator ani and difficulty relaxing the levator ani following a contraction Contraction Ability Voluntary Contraction Weak Voluntary Relaxation Weak Manual Muscle Testing Left 2 Manual Muscle Testing Right 3 Manual Muscle Testing Anterior 2 Manual Muscle Testing Posterior 3 Muscle Endurance (Seconds) 4 PT-OP-M Strength Start: 08/12/20 09:47 Freq: Status: Active Protocol: Document 08/12/20 09:45 [facility] (Rec: 08/13/20 10:12 [facility] [email or web address]) Trunk Strength Trunk Manual Muscle Testing Testing Position Supine Flexion 3 Fair Core Stabilization poor TA activation and core stabilization, decreased pelvic floor strength ( see pelvic floor section) PT-OP-Q Treatments Start: 08/12/20 09:47 Freq: Status: Active Protocol: Document 09/09/20 11:30 [facility] (Rec: 09/09/20 11:38 [facility] [email or web address]) Therapeutic Exercises Supine Exercises cobra stretch Supine Exercise Name cobra stretch Comments to stretch the suprapubic fascia Manual Therapy Treatment Soft Tissue Mobilization left lateral wall of the levator ani release Body Location MFR left lateral wall of the levator ani Comments from 6-8 on the pelvic clock bladder visceral mobilizations Mobilization Type Myofascial Release Intensity/Depth Superficial Body Position Hooklying Comments increased gentle bladder visceral mobilizations as well as suprapubic fascia Self-Care/Home Management Treatment Activities Self-Care/Home Management Activities set up of home NMES and instructions for use PT-OP-T Assessment and Plan Start: 08/12/20 09:47 Freq: Status: Active Protocol: Document 09/09/20 11:30 [facility] (Rec: 09/09/20 11:38 [facility] [email or web address]) Physical Therapy Assessment Assessment Summary Assessment we discussed avoiding heavy lifting today as it causes more swelling in the pelvci floor. I set up her NMES unit for her for home and I reviewed how to use the therawand for the left side from 6-8 on the pelvic clock. There is still quite a bit of guarding on the left lateral wall of the levator ani Physical Therapy Plan Frequency and Duration Frequency of Treatment 1x/Week Duration of Treatment 8 Plan of Care Start Date 08/12/20 Plan of Care End Date 10/07/20 Therapeutic Interventions Therapeutic Interventions Home Exercise Program,Manual Therapy,Neuromuscular Re- education,Patient/Caregiver Education,Self-Care/Home Management,Soft Tissue Mobilization,Therapeutic Exercises Modalities Biofeedback,Electric Stimulation
--- NOTE | 2020-09-16 11:41 | PT.OTN ---
Current Diagnoses Other specified disorders of muscle (09/16/20) Physical Therapy Treatment Note PT-OP-A Visit Information Start: 08/12/20 09:47 Freq: Status: Active Protocol: Document 09/16/20 10:00 [facility] (Rec: 09/16/20 10:18 [facility] [id number]) Out-Patient Physical Therapy Visit Information Visit Information Visit Type Treatment Note Visit Start Time 10:00 Visit Stop Time 10:30 Total Visit Minutes 30 PT-OP-B Current Condition Start: 08/12/20 09:47 Freq: Status: Active Protocol: Document 08/12/20 09:45 [facility] (Rec: 08/12/20 10:05 [facility] [id number]) Current Condition History of Current Condition Onset Date 04/21/20 History of Current Condition pt was 21 weeks with placenta previa and had to have emergent C section hysterectomy at and her baby lived x 4 hours. A vertical incision was used. Pt reports she almost bled to and needed multiple blood transfusions. Her bladder was adhered to her uterus and it had to be cut off the uterus. Stefany required catheritization x 2 weeks following. She reports The top of my vagina folds in on itself and the sides have prolapsed. 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 She lost iva daughter at 9-14 weejs gestation with trisomy 13, and subsequent D& C on 08/30. Hx of cervical fusion October 2019 C 5-6 At this point she reports she has lack of feeling in her pelvic floor. Lack of sensation during intercourse. Stefany reports when she goes to the bathroom she cant feel if her bladder is full, she has to bear down. She has 6 kids at home. 12, 10 8, 8, 4, 2 years old. Prior Treatments and Tests Dr. Noel at did her surgery Treatment Goals Patient/Caregiver Goals pt goals include restoring sensation and strength for her pelvic floor PT-OP-C Subjective Start: 08/12/20 09:47 Freq: Status: Active Protocol: Document 09/16/20 10:00 [facility] (Rec: 09/16/20 10:12 [facility] [id number]) OP-PT Subjective Patient Comments Patient Comments pt has been using her stimulation unit for the pelvic floor, she has done it 3 times this week. Some improvement with voiding this week. Patient Reported Progress Improving PT-OP-F Manual Assessment Start: 08/12/20 09:47 Freq: Status: Active Protocol: Document 08/12/20 09:45 [facility] (Rec: 08/12/20 17:21 [facility] [email or web address]) Manual Assessments Soft Tissue Assessment Soft Tissue Mobility Assessment scar tissue present with the hysterectomy scar in the suprapubic fascia and over the bladder, decreased mobility of the bladder with visceral mobilization PT-OP-I Pelvic Floor Start: 08/12/20 09:47 Freq: Status: Active Protocol: Document 08/12/20 09:45 [facility] (Rec: 08/12/20 17:24 [facility] [email or web address]) Pelvic Floor Assessment Pelvic Clock Pelvic Clock 12-3 Guarding Pelvic Clock 3-6 Guarding,Hypertonic,Tenderness Pelvic Clock Other guarding of the left lateral wall of the levator ani and difficulty relaxing the levator ani following a contraction Contraction Ability Voluntary Contraction Weak Voluntary Relaxation Weak Manual Muscle Testing Left 2 Manual Muscle Testing Right 3 Manual Muscle Testing Anterior 2 Manual Muscle Testing Posterior 3 Muscle Endurance (Seconds) 4 PT-OP-M Strength Start: 08/12/20 09:47 Freq: Status: Active Protocol: Document 08/12/20 09:45 [facility] (Rec: 08/13/20 10:12 [facility] [email or web address]) Trunk Strength Trunk Manual Muscle Testing Testing Position Supine Flexion 3 Fair Core Stabilization poor TA activation and core stabilization, decreased pelvic floor strength ( see pelvic floor section) PT-OP-Q Treatments Start: 08/12/20 09:47 Freq: Status: Active Protocol: Document 09/16/20 10:00 [facility] (Rec: 09/16/20 10:14 [facility] [id number]) Therapeutic Exercises Supine Exercises templates for coordination and eccentric control Reps/Minutes 5 min quick pelvic floor contractions Reps/Minutes x 12 reps pelvic floor long holds Reps/Minutes 10 seconds on 10 seconds off Comments resting tone 1.9-2.4 PT-OP-T Assessment and Plan Start: 08/12/20 09:47 Freq: Status: Active Protocol: Document 09/16/20 10:00 [facility] (Rec: 09/16/20 10:18 [facility] [id number]) Physical Therapy Assessment Assessment Summary Assessment average 10.3 max 24.1 and average resting tone of 2.1 long holds. Good decrease in resting tone of the levator ani today. Pt is using the estim at home, sensation is limited but she reports feeling some sensation once it is turned up. Right side of the TA seems to be activating more than the left side Physical Therapy Plan Frequency and Duration Frequency of Treatment 1x/Week Duration of Treatment 8 Plan of Care Start Date 08/12/20 Plan of Care End Date 10/07/20 Next Visit Focus/Plan Next Note Type Treatment Note Next Visit Plan return to MFR and scar tissue release over the bladder next visit
--- NOTE | 2020-09-23 13:11 | PT.OTN ---
Current Diagnoses Other specified disorders of muscle (09/23/20) Physical Therapy Treatment Note PT-OP-A Visit Information Start: 08/12/20 09:47 Freq: Status: Active Protocol: Document 09/23/20 09:49 [facility] (Rec: 09/23/20 09:51 [facility] [id number]) Out-Patient Physical Therapy Visit Information Visit Information Visit Type Treatment Note Visit Start Time 09:45 Visit Stop Time 10:30 Total Visit Minutes 45 Visit Number 6 PT-OP-B Current Condition Start: 08/12/20 09:47 Freq: Status: Active Protocol: Document 08/12/20 09:45 [facility] (Rec: 08/12/20 10:05 [facility] [id number]) Current Condition History of Current Condition Onset Date 04/21/20 History of Current Condition pt was 21 weeks with placenta previa and had to have emergent C section hysterectomy at and her baby lived x 4 hours. A vertical incision was used. Pt reports she almost bled to and needed multiple blood transfusions. Her bladder was adhered to her uterus and it had to be cut off the uterus. Stefany required catheritization x 2 weeks following. She reports The top of my vagina folds in on itself and the sides have prolapsed. 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 She lost iva daughter at 9-14 weejs gestation with trisomy 13, and subsequent D& C on 08/30. Hx of cervical fusion October 2019 C 5-6 At this point she reports she has lack of feeling in her pelvic floor. Lack of sensation during intercourse. Stefany reports when she goes to the bathroom she cant feel if her bladder is full, she has to bear down. She has 6 kids at home. 12, 10 8, 8, 4, 2 years old. Prior Treatments and Tests Dr. Noel at did her surgery Treatment Goals Patient/Caregiver Goals pt goals include restoring sensation and strength for her pelvic floor PT-OP-C Subjective Start: 08/12/20 09:47 Freq: Status: Active Protocol: Document 09/23/20 09:49 [facility] (Rec: 09/23/20 09:51 [facility] [id number]) OP-PT Subjective Patient Comments Patient Comments pt reports she gave her self a concusion after last visit, has had a headache. SHe has been using the NMES and has a little sensation. PT-OP-F Manual Assessment Start: 08/12/20 09:47 Freq: Status: Active Protocol: Document 08/12/20 09:45 [facility] (Rec: 08/12/20 17:21 [facility] [email or web address]) Manual Assessments Soft Tissue Assessment Soft Tissue Mobility Assessment scar tissue present with the hysterectomy scar in the suprapubic fascia and over the bladder, decreased mobility of the bladder with visceral mobilization PT-OP-I Pelvic Floor Start: 08/12/20 09:47 Freq: Status: Active Protocol: Document 08/12/20 09:45 [facility] (Rec: 08/12/20 17:24 [facility] [email or web address]) Pelvic Floor Assessment Pelvic Clock Pelvic Clock 12-3 Guarding Pelvic Clock 3-6 Guarding,Hypertonic,Tenderness Pelvic Clock Other guarding of the left lateral wall of the levator ani and difficulty relaxing the levator ani following a contraction Contraction Ability Voluntary Contraction Weak Voluntary Relaxation Weak Manual Muscle Testing Left 2 Manual Muscle Testing Right 3 Manual Muscle Testing Anterior 2 Manual Muscle Testing Posterior 3 Muscle Endurance (Seconds) 4 PT-OP-M Strength Start: 08/12/20 09:47 Freq: Status: Active Protocol: Document 08/12/20 09:45 [facility] (Rec: 08/13/20 10:12 [facility] [email or web address]) Trunk Strength Trunk Manual Muscle Testing Testing Position Supine Flexion 3 Fair Core Stabilization poor TA activation and core stabilization, decreased pelvic floor strength ( see pelvic floor section) PT-OP-Q Treatments Start: 08/12/20 09:47 Freq: Status: Active Protocol: Document 09/23/20 09:49 [facility] (Rec: 09/23/20 10:36 [facility] [id number]) Therapeutic Exercises Supine Exercises quick pelvic floor contractions Reps/Minutes x 12 reps pelvic floor long holds Comments average 8.9 max 14.5 rest 1.9 Manual Therapy Treatment Soft Tissue Mobilization bladder visceral mobilizations Mobilization Type Myofascial Release Intensity/Depth Superficial Body Position Hooklying Comments increased gentle bladder visceral mobilizations as well as suprapubic fascia Neuro Re-Education Treatment Other Activities NMES Details NMES for the pelvic floor Reps/Duration 10 min Comments tried on the 10 seconds on and 10 seconds off on the NMES today during MFR for the abdominal wall PT-OP-T Assessment and Plan Start: 08/12/20 09:47 Freq: Status: Active Protocol: Document 09/23/20 13:10 [facility] (Rec: 09/23/20 13:11 [facility] [email or web address]) Physical Therapy Assessment Assessment Summary Assessment switched the NMES to 10 sec on 10 sec off, pt does have more sensation, also more sensation to void now. Worked on visceral mobilizations of the bladder and this is getting a little better. Physical Therapy Plan Frequency and Duration Frequency of Treatment 1x/Week Duration of Treatment 8 Plan of Care Start Date 08/12/20 Plan of Care End Date 10/07/20 Therapeutic Interventions Therapeutic Interventions Home Exercise Program,Manual Therapy,Neuromuscular Re- education,Patient/Caregiver Education,Self-Care/Home Management,Soft Tissue Mobilization,Therapeutic Exercises Modalities Biofeedback,Electric Stimulation Next Visit Focus/Plan Next Note Type Treatment Note Next Visit Plan review urge deference technique next visit
--- NOTE | 2020-09-30 17:13 | PT.OTN ---
Current Diagnoses Other specified disorders of muscle (09/30/20) Physical Therapy Treatment Note PT-OP-A Visit Information Start: 08/12/20 09:47 Freq: Status: Active Protocol: Document 09/30/20 09:52 [facility] (Rec: 09/30/20 09:52 [facility] [id number]) Out-Patient Physical Therapy Visit Information Visit Information Visit Type Treatment Note Visit Start Time 09:45 Visit Stop Time 10:30 Total Visit Minutes 45 Visit Number 7 PT-OP-B Current Condition Start: 08/12/20 09:47 Freq: Status: Active Protocol: Document 08/12/20 09:45 [facility] (Rec: 08/12/20 10:05 [facility] [id number]) Current Condition History of Current Condition Onset Date 04/21/20 History of Current Condition pt was 21 weeks with placenta previa and had to have emergent C section hysterectomy at and her baby lived x 4 hours. A vertical incision was used. Pt reports she almost bled to and needed multiple blood transfusions. Her bladder was adhered to her uterus and it had to be cut off the uterus. Stefany required catheritization x 2 weeks following. She reports The top of my vagina folds in on itself and the sides have prolapsed. 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 She lost iva daughter at 9-14 weejs gestation with trisomy 13, and subsequent D& C on 08/30. Hx of cervical fusion October 2019 C 5-6 At this point she reports she has lack of feeling in her pelvic floor. Lack of sensation during intercourse. Stefany reports when she goes to the bathroom she cant feel if her bladder is full, she has to bear down. She has 6 kids at home. 12, 10 8, 8, 4, 2 years old. Prior Treatments and Tests Dr. Noel at did her surgery Treatment Goals Patient/Caregiver Goals pt goals include restoring sensation and strength for her pelvic floor PT-OP-C Subjective Start: 08/12/20 09:47 Freq: Status: Active Protocol: Document 09/30/20 09:36 [facility] (Rec: 09/30/20 09:52 [facility] [id number]) OP-PT Subjective Patient Comments Patient Comments Pt reports went for a long bike ride this weekend, has felt a little swollen since. Stefany did also purchase the home biofeedback unit and is really liking it. She does not yet have sensation with the NMES but likes the biofeedback because she is able to see that she is tasia her pelvic floor PT-OP-F Manual Assessment Start: 08/12/20 09:47 Freq: Status: Active Protocol: Document 08/12/20 09:45 [facility] (Rec: 08/12/20 17:21 [facility] [email or web address]) Manual Assessments Soft Tissue Assessment Soft Tissue Mobility Assessment scar tissue present with the hysterectomy scar in the suprapubic fascia and over the bladder, decreased mobility of the bladder with visceral mobilization PT-OP-I Pelvic Floor Start: 08/12/20 09:47 Freq: Status: Active Protocol: Document 08/12/20 09:45 [facility] (Rec: 08/12/20 17:24 [facility] [email or web address]) Pelvic Floor Assessment Pelvic Clock Pelvic Clock 12-3 Guarding Pelvic Clock 3-6 Guarding,Hypertonic,Tenderness Pelvic Clock Other guarding of the left lateral wall of the levator ani and difficulty relaxing the levator ani following a contraction Contraction Ability Voluntary Contraction Weak Voluntary Relaxation Weak Manual Muscle Testing Left 2 Manual Muscle Testing Right 3 Manual Muscle Testing Anterior 2 Manual Muscle Testing Posterior 3 Muscle Endurance (Seconds) 4 PT-OP-M Strength Start: 08/12/20 09:47 Freq: Status: Active Protocol: Document 08/12/20 09:45 [facility] (Rec: 08/13/20 10:12 [facility] [email or web address]) Trunk Strength Trunk Manual Muscle Testing Testing Position Supine Flexion 3 Fair Core Stabilization poor TA activation and core stabilization, decreased pelvic floor strength ( see pelvic floor section) PT-OP-Q Treatments Start: 08/12/20 09:47 Freq: Status: Active Protocol: Document 09/30/20 09:45 [facility] (Rec: 09/30/20 17:13 [facility] [email or web address]) Therapeutic Exercises Supine Exercises iliopsoas stretch Reps/Minutes 2 reps at 30 seconds each Manual Therapy Treatment Soft Tissue Mobilization iliopsoas release Body Location Iliopsoas bilaterally Comments iliopsoas release bladder visceral mobilizations Mobilization Type Myofascial Release Intensity/Depth Superficial Body Position Hooklying Comments increased gentle bladder visceral mobilizations as well as suprapubic fascia ILU massage over the colon Body Location abdominal wall Mobilization Type Myofascial Release Intensity/Depth Moderate Body Position Hooklying Comments pt educated in self ILU massage for home PT-OP-T Assessment and Plan Start: 08/12/20 09:47 Freq: Status: Active Protocol: Document 09/30/20 09:45 [facility] (Rec: 09/30/20 17:13 [facility] [email or web address]) Physical Therapy Assessment Assessment Summary Assessment pt is working hard on HEP, I am still working on gettng her to stretch the suprapubic fascia, cobra is difficult for her to do so today we worked on lengthening the iliopsoas. She does have a great deal of tension in the iliopsoas so this was helpful. She was given a home program to stretch. Urge deference technique was reviewed and pt feels it has been helpful. There was improved tissue play in the suprapubic fascia today Physical Therapy Plan Frequency and Duration Frequency of Treatment 1x/Week Duration of Treatment 8 Plan of Care Start Date 08/12/20 Plan of Care End Date 10/07/20 Therapeutic Interventions Therapeutic Interventions Home Exercise Program,Manual Therapy,Neuromuscular Re- education,Patient/Caregiver Education,Self-Care/Home Management,Soft Tissue Mobilization,Therapeutic Exercises Modalities Biofeedback,Electric Stimulation Next Visit Focus/Plan Next Note Type Treatment Note Next Visit Plan continue with MAIL SERVICE COORDINATOR, pelvic floor strengthening, core stabilization
--- NOTE | 2020-10-09 18:06 | PT.OTN ---
Current Diagnoses Other specified disorders of muscle (10/09/20) Physical Therapy Treatment Note PT-OP-A Visit Information Start: 08/12/20 09:47 Freq: Status: Active Protocol: Document 10/09/20 09:30 [facility] (Rec: 10/09/20 09:19 [facility] [id number]) Out-Patient Physical Therapy Visit Information Visit Information Visit Type Treatment Note Visit Start Time 09:15 Visit Stop Time 10:30 Total Visit Minutes 30 Visit Number 8 PT-OP-B Current Condition Start: 08/12/20 09:47 Freq: Status: Active Protocol: Document 08/12/20 09:45 [facility] (Rec: 08/12/20 10:05 [facility] [id number]) Current Condition History of Current Condition Onset Date 04/21/20 History of Current Condition pt was 21 weeks with placenta previa and had to have emergent C section hysterectomy at and her baby lived x 4 hours. A vertical incision was used. Pt reports she almost bled to and needed multiple blood transfusions. Her bladder was adhered to her uterus and it had to be cut off the uterus. Stefany required catheritization x 2 weeks following. She reports The top of my vagina folds in on itself and the sides have prolapsed. 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 She lost iva daughter at 9-14 weejs gestation with trisomy 13, and subsequent D& C on 08/30. Hx of cervical fusion October 2019 C 5-6 At this point she reports she has lack of feeling in her pelvic floor. Lack of sensation during intercourse. Stefany reports when she goes to the bathroom she cant feel if her bladder is full, she has to bear down. She has 6 kids at home. 12, 10 8, 8, 4, 2 years old. Prior Treatments and Tests Dr. Noel at did her surgery Treatment Goals Patient/Caregiver Goals pt goals include restoring sensation and strength for her pelvic floor PT-OP-C Subjective Start: 08/12/20 09:47 Freq: Status: Active Protocol: Document 10/09/20 09:30 [facility] (Rec: 10/09/20 09:19 [facility] [id number]) OP-PT Subjective Patient Comments Patient Comments pt is using her home biofeedback and it is working well. She is using the chio fit. She is drinking more water and is feeling more urgency to void now but a normal urge. Patient Reported Progress Improving PT-OP-F Manual Assessment Start: 08/12/20 09:47 Freq: Status: Active Protocol: Document 08/12/20 09:45 [facility] (Rec: 08/12/20 17:21 [facility] [email or web address]) Manual Assessments Soft Tissue Assessment Soft Tissue Mobility Assessment scar tissue present with the hysterectomy scar in the suprapubic fascia and over the bladder, decreased mobility of the bladder with visceral mobilization PT-OP-I Pelvic Floor Start: 08/12/20 09:47 Freq: Status: Active Protocol: Document 08/12/20 09:45 [facility] (Rec: 08/12/20 17:24 [facility] [email or web address]) Pelvic Floor Assessment Pelvic Clock Pelvic Clock 12-3 Guarding Pelvic Clock 3-6 Guarding,Hypertonic,Tenderness Pelvic Clock Other guarding of the left lateral wall of the levator ani and difficulty relaxing the levator ani following a contraction Contraction Ability Voluntary Contraction Weak Voluntary Relaxation Weak Manual Muscle Testing Left 2 Manual Muscle Testing Right 3 Manual Muscle Testing Anterior 2 Manual Muscle Testing Posterior 3 Muscle Endurance (Seconds) 4 PT-OP-M Strength Start: 08/12/20 09:47 Freq: Status: Active Protocol: Document 08/12/20 09:45 [facility] (Rec: 08/13/20 10:12 [facility] [email or web address]) Trunk Strength Trunk Manual Muscle Testing Testing Position Supine Flexion 3 Fair Core Stabilization poor TA activation and core stabilization, decreased pelvic floor strength ( see pelvic floor section) PT-OP-Q Treatments Start: 08/12/20 09:47 Freq: Status: Active Protocol: Document 10/09/20 09:30 [facility] (Rec: 10/09/20 17:51 [facility] [email or web address]) Manual Therapy Treatment Soft Tissue Mobilization iliopsoas release Body Location Iliopsoas bilaterally Comments iliopsoas release left lateral wall of the levator ani release Body Location MFR left lateral wall of the levator ani Comments pt is still guarded on the left but it is much better than it was previously. bladder visceral mobilizations Mobilization Type Myofascial Release Intensity/Depth Superficial Body Position Hooklying Comments increased gentle bladder visceral mobilizations as well as suprapubic fascia PT-OP-T Assessment and Plan Start: 08/12/20 09:47 Freq: Status: Active Protocol: Document 10/09/20 09:04 [facility] (Rec: 10/09/20 09:19 [facility] [id number]) Physical Therapy Assessment Goals Decreased sensation in the pelvic floor Residential Goal (LTG) Stefany is able to continue with the NMES and manual therapy treatments to help improve sensation in the pelvic floor with intercourse LTG Duration 8 weeks pelvic floor dysfunction with both guarding and weakness of the levator ani Impairment Pelvic floor dysfunction with both guarding and weakness of the levator ani Short Term Goal (STG) Stefany is educated in Pelvic floor relaxation and is able to relax her pelvic floor to 2 .0 uv or lower on EMG biofeedback GOAL MET STG Duration 4 weeks Hub Cutter Apprentice Goal (LTG) Stefany demonstrates improved strength of the levator ani for support of her bladder and is able to sustain a contraction x 10 seconds in supine Excellent progress LTG Duration 8 weeks scar tissue adhesions over the abdominal wall Impairment scar tissue adhesions in the lower abdominal wall and suprapubic fascia Short Term Goal (STG) Stefany is educated in a gentle stretching program and self abdominal massage to help improve tissue mobility GOAL MET STG Duration 4 weeks pt has decreased urge to void and difficulty fully emptying her bladder Impairment decreased urge to void and difficulty emptying her bladder Short Term Goal (STG) Stefany is educated in toileting techniques and positioning that can help her to fully empty her bladder Excellent progress STG Duration 4 weeks Hub Cutter Apprentice Goal (LTG) Stefany reports improved urge to void and feels as if she is fully able to empty her bladder without straining. Good progress LTG Duration 8 weeks Assessment Summary Assessment Stefany is making good progress with PT. She has improved urge to void now and feels that she is emptying her bladder better with improved sensation. She is showing small amounts of improvement with her sensation in the pelvic floor, left lateral wall is doing better, still some tightness in the obturator internus and illiococcygeus but she is better able to relax her left side wall now. She has both a home biofeedback unit and home NMES unit for pelvic floor neuro re-education. Stefany would benefit from continued PT Physical Therapy Plan Frequency and Duration Frequency of Treatment 1x/Week Duration of Treatment 8 Plan of Care Start Date 08/12/20 Plan of Care End Date 06/15/21 Next Visit Focus/Plan Next Note Type Treatment Note Next Visit Plan continue with activation of the pelvci floor
--- NOTE | 2020-10-09 18:10 | PT.OPPOC ---
Physical, Occupational & Speech Therapy At [facility] Current Diagnoses Other specified disorders of muscle (10/09/20) Visit Care Team Role Provider Type Maria R Hills DO Family Provider Physician Primary Care Provider Specialty: Family Practice Address: [address] [place] [address], [place], [address] Email: [email or web address] Ju Sarmiento MD Attending Provider Physician Referring Provider Specialty: Gynecology [employer]Y LAUNDERING INVESTIGATOR Obstetrics Address: [address] [place] [address], [id number] Email: [email or web address] Plan Of Care PT-OP-T Assessment and Plan Start: 08/12/20 09:47 Freq: Status: Active Protocol: Document 10/09/20 09:04 [facility] (Rec: 10/09/20 09:19 [facility] [id number]) Physical Therapy Assessment Goals Decreased sensation in the pelvic floor Senior Living Goal (LTG) Stefany is able to continue with the NMES and manual therapy treatments to help improve sensation in the pelvic floor with intercourse LTG Duration 8 weeks pelvic floor dysfunction with both guarding and weakness of the levator ani Impairment Pelvic floor dysfunction with both guarding and weakness of the levator ani Short Term Goal (STG) Stefany is educated in Pelvic floor relaxation and is able to relax her pelvic floor to 2 .0 uv or lower on EMG biofeedback GOAL MET STG Duration 4 weeks International Recruiter Goal (LTG) Stefany demonstrates improved strength of the levator ani for support of her bladder and is able to sustain a contraction x 10 seconds in supine Excellent progress LTG Duration 8 weeks scar tissue adhesions over the abdominal wall Impairment scar tissue adhesions in the lower abdominal wall and suprapubic fascia Short Term Goal (STG) Stefany is educated in a gentle stretching program and self abdominal massage to help improve tissue mobility GOAL MET STG Duration 4 weeks pt has decreased urge to void and difficulty fully emptying her bladder Impairment decreased urge to void and difficulty emptying her bladder Short Term Goal (STG) Stefany is educated in toileting techniques and positioning that can help her to fully empty her bladder Excellent progress STG Duration 4 weeks Senior Living Goal (LTG) Stefany reports improved urge to void and feels as if she is fully able to empty her bladder without straining. Good progress LTG Duration 8 weeks Assessment Summary Assessment Stefany is making good progress with PT. She has improved urge to void now and feels that she is emptying her bladder better with improved sensation. She is showing small amounts of improvement with her sensation in the pelvic floor, left lateral wall is doing better, still some tightness in the obturator internus and illiococcygeus but she is better able to relax her left side wall now. She has both a home biofeedback unit and home NMES unit for pelvic floor neuro re-education. Stefany would benefit from continued PT Physical Therapy Plan Frequency and Duration Frequency of Treatment 1x/Week Duration of Treatment 8 Plan of Care Start Date 10/07/20 Plan of Care End Date 12/02/20 Next Visit Focus/Plan Next Note Type Treatment Note Next Visit Plan continue with activation of the pelvci floor Plan of Care Dates Plan of Care Start Date 10/07/20 Plan of Care End Date 12/02/20 Electronically Signed by: Anneliese Pina, PT 10/09/20 0726 Please Sign and Return: I have reviewed this Plan of Care and certify that the skilled therapy services above are required to meet the patient?s needs. Physician Signature Date Printed Name and Credentials Clinical Instructor Signature Printed Name and Credentials
--- NOTE | 2020-10-09 18:10 | PT.OPPN ---
Current Diagnoses Other specified disorders of muscle (10/09/20) Physical Therapy Progress Note PT-OP-A Visit Information Start: 08/12/20 09:47 Freq: Status: Active Protocol: Document 10/09/20 09:30 [facility] (Rec: 10/09/20 09:19 [facility] [id number]) Out-Patient Physical Therapy Visit Information Visit Information Visit Type Treatment Note Visit Start Time 09:15 Visit Stop Time 10:30 Total Visit Minutes 30 Visit Number 8 PT-OP-B Current Condition Start: 08/12/20 09:47 Freq: Status: Active Protocol: Document 08/12/20 09:45 [facility] (Rec: 08/12/20 10:05 [facility] [id number]) Current Condition History of Current Condition Onset Date 04/21/20 History of Current Condition pt was 21 weeks with placenta previa and had to have emergent C section hysterectomy at and her baby lived x 4 hours. A vertical incision was used. Pt reports she almost bled to and needed multiple blood transfusions. Her bladder was adhered to her uterus and it had to be cut off the uterus. Stefany required catheritization x 2 weeks following. She reports The top of my vagina folds in on itself and the sides have prolapsed. 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 She lost iva daughter at 9-14 weejs gestation with trisomy 13, and subsequent D& C on 08/30. Hx of cervical fusion October 2019 C 5-6 At this point she reports she has lack of feeling in her pelvic floor. Lack of sensation during intercourse. Stefany reports when she goes to the bathroom she cant feel if her bladder is full, she has to bear down. She has 6 kids at home. 12, 10 8, 8, 4, 2 years old. Prior Treatments and Tests Dr. Noel at did her surgery Treatment Goals Patient/Caregiver Goals pt goals include restoring sensation and strength for her pelvic floor PT-OP-C Subjective Start: 08/12/20 09:47 Freq: Status: Active Protocol: Document 10/09/20 09:30 [facility] (Rec: 10/09/20 09:19 [facility] [id number]) OP-PT Subjective Patient Comments Patient Comments pt is using her home biofeedback and it is working well. She is using the chio fit. She is drinking more water and is feeling more urgency to void now but a normal urge. Patient Reported Progress Improving PT-OP-F Manual Assessment Start: 08/12/20 09:47 Freq: Status: Active Protocol: Document 08/12/20 09:45 [facility] (Rec: 08/12/20 17:21 [facility] [id number]) Manual Assessments Soft Tissue Assessment Soft Tissue Mobility Assessment scar tissue present with the hysterectomy scar in the suprapubic fascia and over the bladder, decreased mobility of the bladder with visceral mobilization PT-OP-I Pelvic Floor Start: 08/12/20 09:47 Freq: Status: Active Protocol: Document 08/12/20 09:45 [facility] (Rec: 08/12/20 17:24 [facility] [email or web address]) Pelvic Floor Assessment Pelvic Clock Pelvic Clock 12-3 Guarding Pelvic Clock 3-6 Guarding,Hypertonic,Tenderness Pelvic Clock Other guarding of the left lateral wall of the levator ani and difficulty relaxing the levator ani following a contraction Contraction Ability Voluntary Contraction Weak Voluntary Relaxation Weak Manual Muscle Testing Left 2 Manual Muscle Testing Right 3 Manual Muscle Testing Anterior 2 Manual Muscle Testing Posterior 3 Muscle Endurance (Seconds) 4 PT-OP-M Strength Start: 08/12/20 09:47 Freq: Status: Active Protocol: Document 08/12/20 09:45 [facility] (Rec: 08/13/20 10:12 [facility] [id number]) Trunk Strength Trunk Manual Muscle Testing Testing Position Supine Flexion 3 Fair Core Stabilization poor TA activation and core stabilization, decreased pelvic floor strength ( see pelvic floor section) PT-OP-T Assessment and Plan Start: 08/12/20 09:47 Freq: Status: Active Protocol: Document 10/09/20 09:04 [facility] (Rec: 10/09/20 09:19 [facility] [id number]) Physical Therapy Assessment Goals Decreased sensation in the pelvic floor Experimental Physicist Goal (LTG) Stefany is able to continue with the NMES and manual therapy treatments to help improve sensation in the pelvic floor with intercourse LTG Duration 8 weeks pelvic floor dysfunction with both guarding and weakness of the levator ani Impairment Pelvic floor dysfunction with both guarding and weakness of the levator ani Short Term Goal (STG) tSefany is educated in Pelvic floor relaxation and is able to relax her pelvic floor to 2 .0 uv or lower on EMG biofeedback GOAL MET STG Duration 4 weeks Experimental Physicist Goal (LTG) Stefany demonstrates improved strength of the levator ani for support of her bladder and is able to sustain a contraction x 10 seconds in supine Excellent progress LTG Duration 8 weeks scar tissue adhesions over the abdominal wall Impairment scar tissue adhesions in the lower abdominal wall and suprapubic fascia Short Term Goal (STG) Stefany is educated in a gentle stretching program and self abdominal massage to help improve tissue mobility GOAL MET STG Duration 4 weeks pt has decreased urge to void and difficulty fully emptying her bladder Impairment decreased urge to void and difficulty emptying her bladder Short Term Goal (STG) Stefany is educated in toileting techniques and positioning that can help her to fully empty her bladder Excellent progress STG Duration 4 weeks Jail Goal (LTG) Stefany reports improved urge to void and feels as if she is fully able to empty her bladder without straining. Good progress LTG Duration 8 weeks Assessment Summary Assessment Stefany is making good progress with PT. She has improved urge to void now and feels that she is emptying her bladder better with improved sensation. She is showing small amounts of improvement with her sensation in the pelvic floor, left lateral wall is doing better, still some tightness in the obturator internus and illiococcygeus but she is better able to relax her left side wall now. She has both a home biofeedback unit and home NMES unit for pelvic floor neuro re-education. Stefany would benefit from continued PT Physical Therapy Plan Frequency and Duration Frequency of Treatment 1x/Week Duration of Treatment 8 Plan of Care Start Date 10/07/20 Plan of Care End Date 12/02/20 Next Visit Focus/Plan Next Note Type Treatment Note Next Visit Plan continue with activation of the pelvci floor
--- NOTE | 2020-10-09 18:11 | PT.OPPOC ---
Physical, Occupational & Speech Therapy At [facility] Current Diagnoses Other specified disorders of muscle (10/09/20) Visit Care Team Role Provider Type Maria R Hills DO Family Provider Physician Primary Care Provider Specialty: Family Practice Address: [address] [place] [address], [place], [address] Email: [email or web address] Ju Sarmiento MD Attending Provider Physician Referring Provider Specialty: Gynecology [employer] Address: [address] [place] [address], [id number] Email: [email or web address] Plan Of Care PT-OP-T Assessment and Plan Start: 08/12/20 09:47 Freq: Status: Active Protocol: Document 10/09/20 09:04 [facility] (Rec: 10/09/20 09:19 [facility] [id number]) Physical Therapy Assessment Goals Decreased sensation in the pelvic floor Assisted Goal (LTG) Stefany is able to continue with the NMES and manual therapy treatments to help improve sensation in the pelvic floor with intercourse LTG Duration 8 weeks pelvic floor dysfunction with both guarding and weakness of the levator ani Impairment Pelvic floor dysfunction with both guarding and weakness of the levator ani Short Term Goal (STG) Stefany is educated in Pelvic floor relaxation and is able to relax her pelvic floor to 2 .0 uv or lower on EMG biofeedback GOAL MET STG Duration 4 weeks Acidizer Water Well Goal (LTG) Stefany demonstrates improved strength of the levator ani for support of her bladder and is able to sustain a contraction x 10 seconds in supine Excellent progress LTG Duration 8 weeks scar tissue adhesions over the abdominal wall Impairment scar tissue adhesions in the lower abdominal wall and suprapubic fascia Short Term Goal (STG) Stefany is educated in a gentle stretching program and self abdominal massage to help improve tissue mobility GOAL MET STG Duration 4 weeks pt has decreased urge to void and difficulty fully emptying her bladder Impairment decreased urge to void and difficulty emptying her bladder Short Term Goal (STG) Stefany is educated in toileting techniques and positioning that can help her to fully empty her bladder Excellent progress STG Duration 4 weeks Assisted Goal (LTG) Stefany reports improved urge to void and feels as if she is fully able to empty her bladder without straining. Good progress LTG Duration 8 weeks Assessment Summary Assessment Stefany is making good progress with PT. She has improved urge to void now and feels that she is emptying her bladder better with improved sensation. She is showing small amounts of improvement with her sensation in the pelvic floor, left lateral wall is doing better, still some tightness in the obturator internus and illiococcygeus but she is better able to relax her left side wall now. She has both a home biofeedback unit and home NMES unit for pelvic floor neuro re-education. Stefany would benefit from continued PT Physical Therapy Plan Frequency and Duration Frequency of Treatment 1x/Week Duration of Treatment 8 Plan of Care Start Date 10/07/20 Plan of Care End Date 12/02/20 Next Visit Focus/Plan Next Note Type Treatment Note Next Visit Plan continue with treatment for improved sensation of the pelvic floor and improved voiding ability. Plan of Care Dates Plan of Care Start Date 10/07/20 Plan of Care End Date 12/02/20 Electronically Signed by: Anneliese Pina, PT 10/09/20 [id number] Please Sign and Return: I have reviewed this Plan of Care and certify that the skilled therapy services above are required to meet the patient?s needs. Physician Signature Date Printed Name and Credentials Clinical Instructor Signature Printed Name and Credentials
--- NOTE | 2020-11-05 13:44 | PT.OTN ---
Current Diagnoses Other specified disorders of muscle (11/05/20) Physical Therapy Treatment Note PT-OP-A Visit Information Start: 08/12/20 09:47 Freq: Status: Active Protocol: Document 11/05/20 09:46 [facility] (Rec: 11/05/20 09:51 [facility] [id number]) Out-Patient Physical Therapy Visit Information Visit Information Visit Type Treatment Note Visit Start Time 09:45 Visit Stop Time 10:25 Total Visit Minutes 40 Visit Number 9 PT-OP-B Current Condition Start: 08/12/20 09:47 Freq: Status: Active Protocol: Document 08/12/20 09:45 [facility] (Rec: 08/12/20 10:05 [facility] [id number]) Current Condition History of Current Condition Onset Date 04/21/20 History of Current Condition pt was 21 weeks with placenta previa and had to have emergent C section hysterectomy at and her baby lived x 4 hours. A vertical incision was used. Pt reports she almost bled to and needed multiple blood transfusions. Her bladder was adhered to her uterus and it had to be cut off the uterus. Stefany required catheritization x 2 weeks following. She reports The top of my vagina folds in on itself and the sides have prolapsed. 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 She lost iva daughter at 9-14 weejs gestation with trisomy 13, and subsequent D& C on 08/30. Hx of cervical fusion October 2019 C 5-6 At this point she reports she has lack of feeling in her pelvic floor. Lack of sensation during intercourse. Stefany reports when she goes to the bathroom she cant feel if her bladder is full, she has to bear down. She has 6 kids at home. 12, 10 8, 8, 4, 2 years old. Prior Treatments and Tests Dr. Noel at did her surgery Treatment Goals Patient/Caregiver Goals pt goals include restoring sensation and strength for her pelvic floor PT-OP-C Subjective Start: 08/12/20 09:47 Freq: Status: Active Protocol: Document 11/05/20 09:46 [facility] (Rec: 11/05/20 09:51 [facility] [id number]) OP-PT Subjective Patient Comments Patient Comments Pt reports she has been doing her home NMES and her home pelvic floor exercises. She continues to note numbness in her pelvic floor and lacks libido. She describes a cyst in the area that is painful right now so she has not engaged in intercourse. Pt notes overall she is doing well with bladder control but had a episode recently where her bladder got overfilled and she leaked Patient Reported Progress Same PT-OP-F Manual Assessment Start: 08/12/20 09:47 Freq: Status: Active Protocol: Document 08/12/20 09:45 [facility] (Rec: 08/12/20 17:21 [facility] [id number]) Manual Assessments Soft Tissue Assessment Soft Tissue Mobility Assessment scar tissue present with the hysterectomy scar in the suprapubic fascia and over the bladder, decreased mobility of the bladder with visceral mobilization PT-OP-I Pelvic Floor Start: 08/12/20 09:47 Freq: Status: Active Protocol: Document 08/12/20 09:45 [facility] (Rec: 08/12/20 17:24 [facility] [email or web address]) Pelvic Floor Assessment Pelvic Clock Pelvic Clock 12-3 Guarding Pelvic Clock 3-6 Guarding,Hypertonic,Tenderness Pelvic Clock Other guarding of the left lateral wall of the levator ani and difficulty relaxing the levator ani following a contraction Contraction Ability Voluntary Contraction Weak Voluntary Relaxation Weak Manual Muscle Testing Left 2 Manual Muscle Testing Right 3 Manual Muscle Testing Anterior 2 Manual Muscle Testing Posterior 3 Muscle Endurance (Seconds) 4 PT-OP-M Strength Start: 08/12/20 09:47 Freq: Status: Active Protocol: Document 08/12/20 09:45 [facility] (Rec: 08/13/20 10:12 [facility] [id number]) Trunk Strength Trunk Manual Muscle Testing Testing Position Supine Flexion 3 Fair Core Stabilization poor TA activation and core stabilization, decreased pelvic floor strength ( see pelvic floor section) PT-OP-Q Treatments Start: 08/12/20 09:47 Freq: Status: Active Protocol: Document 11/05/20 09:45 [facility] (Rec: 11/05/20 13:26 [facility] [id number]) Manual Therapy Treatment Soft Tissue Mobilization left lateral wall of the levator ani release Body Location MFR left lateral wall of the levator ani Comments pt is still guarded on the left but it is much better than it was previously. bladder visceral mobilizations Mobilization Type Myofascial Release Intensity/Depth Superficial Body Position Hooklying Comments increased gentle bladder visceral mobilizations as well as suprapubic fascia PT-OP-T Assessment and Plan Start: 08/12/20 09:47 Freq: Status: Active Protocol: Document 11/05/20 09:45 [facility] (Rec: 11/05/20 13:44 [facility] [email or web address]) Physical Therapy Assessment Goals Decreased sensation in the pelvic floor Mat Packer Goal (LTG) Stefany is able to continue with the NMES and manual therapy treatments to help improve sensation in the pelvic floor with intercourse At this point Stefany reports no change with her symptoms of numbness in the pelvic floor LTG Duration 8 weeks pelvic floor dysfunction with both guarding and weakness of the levator ani Impairment Pelvic floor dysfunction with both guarding and weakness of the levator ani Short Term Goal (STG) Stefany is educated in Pelvic floor relaxation and is able to relax her pelvic floor to 2 .0 uv or lower on EMG biofeedback GOAL MET STG Duration 4 weeks Mat Packer Goal (LTG) Stefany demonstrates improved strength of the levator ani for support of her bladder and is able to sustain a contraction x 10 seconds in supine GOAL MET LTG Duration 8 weeks scar tissue adhesions over the abdominal wall Impairment scar tissue adhesions in the lower abdominal wall and suprapubic fascia Short Term Goal (STG) Stefany is educated in a gentle stretching program and self abdominal massage to help improve tissue mobility GOAL MET STG Duration 4 weeks pt has decreased urge to void and difficulty fully emptying her bladder Impairment decreased urge to void and difficulty emptying her bladder Short Term Goal (STG) Stefany is educated in toileting techniques and positioning that can help her to fully empty her bladder Excellent progress STG Duration 4 weeks Mat Packer Goal (LTG) Stefany reports improved urge to void and feels as if she is fully able to empty her bladder without straining. Good progress LTG Duration 8 weeks Assessment Summary Assessment Stefany has been seen for 8 visits in PT. She is able to fully contract her pelvic floor and has been working on relaxed awareness at rest to decrease guarding of the levator ani. Stefany has experienced no change in her sensation in the vaginal wall or pelvic floor. I have worked on scar tissue release in the lower abdominal wall over her hysterectomy incision . This has helped with her voiding ability but has not helped with her sensation. She has a home NMES unit as well as home EMG biofeedback. She is able to void better and isn't leaking for the most part. She does report a recent incident where her bladder got overfull and she experienced leakage. I did also observe that she has hair follicle that is infected on the right labia region. I did advise her to have this checked by her MD. She will be discharged from PT at this time and will follow up with Dr Sarmiento Physical Therapy Plan Discharge Physical Therapy Discharge Reasons Plateau in Progress
== END 2020-11-06 13:11 | disposition home or self-care (01) ==
LOC: PHYS 09:45
PROVIDERS: Family Provider Family Medicine; PCP Family Medicine; Referring Provider Obstetrics & Gynecology; Visit Provider Obstetrics & Gynecology
DX: M62.89 Other specified disorders of muscle (principal)
CPT/HCPCS: 97110; 97112; 97140; 97162; 97535

== ENCOUNTER → 2020-11-20 10:17 | Outpatient (CLI) | payer OTHER, MEDICAID, SELFPAY ==
[2019-10-15 13:32] VITALS: BMI 31.3
[2020-11-20 20:23] LABS: Free T3, Triiodothyronine Free 4.67 pg/mL (2.77-5.27); Free T4, Direct Thyroxine 0.63 ng/dL (0.78-2.19)
[2020-11-20 20:37] LABS: Thyroid Stimulating Hormone 10.6 uIU/mL (0.47-4.68)
== END ==
PROVIDERS: Family Provider Family Medicine; PCP Family Medicine; Visit Provider Family Medicine
DX: E06.3 Autoimmune thyroiditis (principal)
CPT/HCPCS: 84439; 84443; 84481

== ENCOUNTER → 2020-11-26 12:43 | Outpatient (CLI) | payer OTHER, MEDICAID, SELFPAY ==
[2019-10-15 13:32] VITALS: BMI 31.3
--- NOTE | 2020-11-26 12:45 | DI.US.S_ITS ---
PROCEDURE: US PELVIC COMPLETE INDICATIONS: Pelvic Pain, Hx Hysterectomy, has Ovaries TECHNIQUE: Real-time scanning was performed of the pelvic organs, with image documentation. Additional endovaginal scanning was necessary due to incomplete visualization of the adnexal and endometrial structures by transabdominal scanning. COMPARISON: [facility], US, US PELVIC COMPLETE, 08/31/2019, 9:25. FINDINGS: Uterus: Removed. Ovaries: The right ovary is not seen. The left ovary measures 5.5 x 3.6 x 4.1 cm. Within the left ovary, there is a complex cyst with septations that measures 4.4 x 3.1 x 2.8 cm. Venous flow is confirmed to the left ovary. An arterial waveform can be seen within the left ovary, yet this is not well seen. Within the left paraovarian region, there is a minimally complicated cyst that measures up to 17 mm. There is also a left adnexal cyst with internal septations that measures 6.6 x 3.4 x 3.3 cm. Other: No pathologic free abdominal or pelvic fluid. IMPRESSION: Abnormal left ovary, with a likely hemorrhagic cyst within it. Arterial flow is seen within the left ovary, yet not well seen on these images. Ovarian torsion is possible based upon these images, yet considered to be less likely. Please consider short-term follow-up, if clinically appropriate. There is a left adnexal cystic focus with internal septations that measures up to 6.6 cm. At the very least, a 6 week follow-up pelvic ultrasound would be recommended to monitor for resolution. Dictated by: Damien Reynaga M.D. on 11/26/2020 at 12:31 Approved by: Damien Reynaga M.D. on 11/26/2020 at 12:36
== END ==
PROVIDERS: Family Provider Family Medicine; PCP Family Medicine; Referring Provider Obstetrics & Gynecology; Visit Provider Obstetrics & Gynecology
DX: R10.2 Pelvic and perineal pain (principal); N83.202 Unspecified ovarian cyst, left side; N94.89 Other specified conditions associated with female genital organs and menstrual cycle
CPT/HCPCS: 76830; 76856

== ENCOUNTER 2020-11-26 14:06 | Day surgery (SDC) | payer OTHER, MEDICAID, SELFPAY ==
[2019-10-15 13:32] VITALS: BMI 31.3
[2020-11-26] VITALS (9 sets, daily range): BP systolic 91–125; BP diastolic 56–80; PULSE 60–80; RESP 16–20; TEMP 36.2–36.8; O2SAT 92–99; BMI 38.9
--- NOTE | 2020-11-26 | DI.US.S_ITS ---
PROCEDURE: US TRANSVAGINAL COMPARISON: [facility], , US PELVIC COMPLETE, 11/26/2020, 12:52. INDICATIONS: OR ASSIST FINDINGS: Intraoperative transvaginal scanning was performed through cyst in locating the left ovary. The left ovary is seen on this study, demonstrating a complex fluid collection. IMPRESSION: Intraoperative scanning performed for localization of the left ovary. Dictated by: Damien Reynaga M.D. on 11/27/2020 at 9:32 Approved by: Damien Reynaga M.D. on 11/27/2020 at 9:34
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
[2020-11-26 15:31] LABS: COVID19 -Nasal RAPID Negative (Negative)
[2020-11-26] MEDS: LACTATED RINGERS 1,000 ML 42 ML IV (16:09)
[2020-11-26] MEDS: ACETAMINOPHEN 325 MG TABLET 975 MG PO (16:13)
[2020-11-26] MEDS: FAMOTIDINE 20 MG/2 ML VIAL IV (16:13)
[2020-11-26] MEDS: METOCLOPRAMIDE 10 MG in SODIUM CHLORIDE 0.9% 50 ML 208 ML IV (16:40)
--- NOTE | 2020-11-26 16:54 | PM.PREOP ---
Pre-operative Note COVID-19 COVID-19 status: Negative Result date/Date tested (Pos, Neg/Pending): 11/26/20 Interval Note History & Physical reviewed/Exam performed by Physician: Yes Changes to H&P: No H&P completed within 30 days and has changed as indicated here:: 11/26/20
[2020-11-26] MEDS: CEFAZOLIN 1 GM VIAL 2 GM IV (17:30)
--- NOTE | 2020-11-26 17:44 | SUR.OPER ---
Lithotomy on padded OR bed, head on pillow, arms secured on padded arm boards at <90 degrees abduction. Legs secured in padded yellow fins stirrups.
[2020-11-26] MEDS: BUPIVACAINE 0.25% W/ EPI 30 ML VIAL INJ (17:50)
--- NOTE | 2020-11-26 20:02 | P.OP_ITS ---
Operative Date/Time/Diagnoses Date of procedure: 11/26/20 Time of procedure: 20:02 Pre-op diagnosis: Left ovarian torsion 6 cm left ovarian mass Right ovary not visualized on ultrasound Post-op diagnosis: same Procedure & Clinicians Procedure: Procedures Operation Date: 11/26/20 17:15 Actual Procedure Side Surgeon p BI Laparoscopy; Lysis of adhesions; Aspiration of a cyst Ju Sarmiento MD Indications: 6 cm left ovarian mass Left ovarian torsion Surgeon: Ju Sarmiento Sea Captain: Ramiro Damon Anesthesia Type: General and Local Operative Notes Findings: Uterus is absent Right ovary is normal Appendix attached to the right ovary Significant pelvic adhesions With intraoperative ultrasound 6 cm complex cystic mass seen in the cul-de-sac Omental to anterior abdominal wall adhesions Closure Type: primary Specimen(s): none Estimated blood loss (mL): 20 Blood products transfused: none Procedure in detail: After informed consent was obtained, the patient was taken to the operating room where she was placed in the dorsal supine position. After adequate general endotracheal anesthesia was achieved, she was placed in the dorsal lithotomy position, and prepped and draped in the usual sterile fashion. A moistened sponge stick was placed into the vagina. Attention was then turned to the abdomen where a 2 cm incision was made to the left of midline at the level of the umbilicus and carried down to the level of the fascia, after 6 cc of 0.25% Marcaine with epinephrine were injected. The fascia was nicked in the midline and the incision extended bilaterally with the Metzenbaum scissors. The peritoneum was identified, grasped between 2 hemostats, and entered sharply with the Metzenbaum scissors. The has sent trocar was placed into the peritoneal cavity. The abdominal cavity was insufflated with 4.3 L of CO2. Initial inspection with the laparoscoped revealed the findings noted above. Two other incisions were made 4 cm lateral to the midline after 6 cc of 0.25% Marcaine with epinephrine were injected. Two 5 mm trocars were placed under direct visualization. The right ovary was visualized and the appendix was found to be stuck to the right ovary. There were significant adhesions of the pelvis and left sidewall. Using atraumatic graspers the adhesions were taken down using the laparoscopic Metzenbaum scissors. The left ovary could not be identified even after the adhesions were lysed. Intraoperatively, ultrasound was called to the operating room. The moistened sponge stick was removed from the vagina. With the systems testing laboratory technician doing a transvaginal ultrasound the right ovary could not be visualized on ultrasound. There was a 6 cm complex cystic mass posteriorly in the pelvis. The pelvis was copiously irrigated and the blood and fluid were suctioned. The suction c atheter was placed into this mass and the adhesions broken up. The fluid inside the cystic mass was suctioned. On ultrasound, the cystic mass disappeared with suction into the posterior cul-de-sac. The left ovary could never be definitively visualized. The instruments were removed from the abdomen. The CO2 was allowed to escape. The incisions to the left of the umbilicus was closed with the sutures that had been previously placed on the fascia. 3-0 Vicryl was used to close the subcutaneous layer with 2 simple interrupted sutures. All of the incisions were closed with 4-0 Biosyn in a subcuticular fashion. The patient had a previous midline and Pfannenstiel incision. At the junction of those 2 incisions there was a tight band. 6 cc of 0.25% Marcaine with epinephrine were injected. The band was taken down with a 10. Blade, as well as some tight adhesive tissue underneath the skin. This incision was then closed with 4 0 Biosyn in a subcuticular fashion. Steri-Strips were placed over all the incisions. Allevyn dressings were placed over all of the incisions. Sponge, lap, and instrument counts were correct x2. The patient tolerated the procedure well, and was taken to PACU in stable condition. Complications: none Post-operative Condition: stable Disposition: PACU Plan for aftercare: To acute care after recovery
--- NOTE | 2020-11-26 21:09 | SUR.PHASEI ---
Stable PACU stay, pt arrived with patent airway, self maintained. Awoke no c/o pain or nausea tolerated ice chips. Dr. Sarmiento called by KIMBERLY Patel for ferrer catheter orders, instructed to remove ferrer in PACU, Ferrer removed. Urine clear yellow. Dressings to abdomen and chio pad remained c/d/i. Report called to KIMBERLY Castellanos then pt transferred up to room 206 and left with Nataliia and left in stable condition. All pt belongings with pt including retainers, rings, phone and purse.
[2020-11-26] MEDS: LACTATED RINGERS 1,000 ML 100 ML IV (21:48)
[2020-11-26] MEDS: DOCUSATE 100 MG CAPSULE 200 MG PO (21:48)
[2020-11-26] MEDS: HYDROMORPHONE 2 MG TABLET PO (22:03)
[2020-11-27] MEDS: HYDROMORPHONE 2 MG TABLET PO ×3 (01:05→09:10)
[2020-11-27 03:21] VITALS: BP 108/56; PULSE 63; RESP 18; TEMP 36.6; O2SAT 93
[2020-11-27] MEDS: LIOTHYRONINE 5 MCG TABLET PO (05:43)
[2020-11-27] MEDS: LEVOTHYROXINE 125 MCG TABLET PO (05:44)
--- NOTE | 2020-11-27 08:45 | CM.DANOTE ---
DCP: Case received, EMR reviewed and met with patient. , Stuart, was at bedside. Introduced self and role. Was able to obtain information regarding patient's baseline activity level prior to surgery. DCP assessment completed with information currently available. Patient is a 40 year old female who admitted yesterday morning to the care of the [facility] [employer] [facility] team. PCP: Dr. Hills. Payer: confirmed: [employer]icaid. Patient came to the hospital via private vehicle for a surgical procedure. She had a diagnostic laparoscopy with possible L. ovarian cystectomy. Patient had been having symptoms of left lower quadrant pain. Met with patient and in her room. She is pleasant, she was sitting up in bed, and just finished her breakfast. She resides in [facility] [place] [facility] with her and children. She is independent at her baseline. She is appreciative of the staff and care that she has received here at the hospital. P: DCP to continue to follow. Patient should be able to go home when she is deemed medically stable. Neida Pearson RN/[employer]
[2020-11-27] MEDS: DOCUSATE 100 MG CAPSULE 200 MG PO (09:10)
[2020-11-27 09:55] VITALS: BP 110/60; PULSE 66; RESP 16; TEMP 36.5; O2SAT 98
--- NOTE | 2020-11-27 11:53 | PC.NURSE ---
Patient eager for discharge to home, without complaints other than pain with movement. Tolerated diet, voiding without difficulty. Incisions CDI. Discharge instructions and home care handouts reviewed with patient, she states understanding and has no further questions or concerns. IV dc'd intact. Patient has f/u appt with Dr. Sarmiento scheduled, instructed to call her with any questions or concerns or to seek emergent care for new or worsening symptoms. Escorted out via wheelchair by [employer], discharge to home with her to [facility].
== END 2020-11-27 11:35 | disposition home or self-care (01) ==
LOC: OR 14:35 → AC 21:21
PROVIDERS: Family Provider Family Medicine; PCP Family Medicine; Referring Provider Obstetrics & Gynecology; Visit Provider Obstetrics & Gynecology
PROC: (CPT 49322; principal; 2020-11-26 17:15)
DX: N83.512 Torsion of left ovary and ovarian pedicle (principal); N73.6 Female pelvic peritoneal adhesions (postinfective); E03.9 Hypothyroidism, unspecified; Z20.822 Contact with and (suspected) exposure to COVID-19; R10.2 Pelvic and perineal pain; N83.202 Unspecified ovarian cyst, left side; N94.89 Other specified conditions associated with female genital organs and menstrual cycle
CPT/HCPCS: 49322; 76830; 76856; 87635; J0690; J1100; J1885; J2405; J2704; J2765; J3010

== ENCOUNTER → 2021-01-09 10:25 | Outpatient (CLI) | payer OTHER, MEDICAID, SELFPAY ==
[2020-12-10 10:04] VITALS: BMI 38.9
[2021-01-09 20:33] LABS: Free T3, Triiodothyronine Free 4.16 pg/mL (2.77-5.27); Free T4, Direct Thyroxine 1.35 ng/dL (0.78-2.19)
[2021-01-09 20:47] LABS: Thyroid Stimulating Hormone 0.884 uIU/mL (0.47-4.68)
== END ==
PROVIDERS: Family Provider Family Medicine; PCP Family Medicine; Visit Provider Family Medicine
DX: E03.9 Hypothyroidism, unspecified (principal)
CPT/HCPCS: 84439; 84443; 84481

== ENCOUNTER → 2021-02-18 13:22 | Outpatient (CLI) | payer OTHER, MEDICAID, SELFPAY ==
[2020-12-10 10:04] VITALS: BMI 38.9
[2021-02-18 19:24] LABS: Cancer Antigen 125 8.2 U/mL (0-35)
== END ==
PROVIDERS: Family Provider Family Medicine; PCP Family Medicine; Visit Provider Obstetrics & Gynecology
DX: R19.00 Intra-abdominal and pelvic swelling, mass and lump, unspecified site (principal)
CPT/HCPCS: 86304

== ENCOUNTER → 2021-03-04 13:06 | Outpatient (CLI) | payer OTHER, MEDICAID, SELFPAY ==
[2020-12-10 10:04] VITALS: BMI 38.9
[2021-03-04 19:27] LABS: Add Manual Diff / Slide Review NO; Basophils Absolute Auto 0 /uL (0-100); Basophils Percent Auto 0.6 % (0-2); Eosinophils Absolute Auto 100 /uL (0-450); Eosinophils Percent Auto 0.9 % (2-4); Hematocrit 42.1 % (36-46); Hemoglobin 13.8 g/dL (12.0-16.0); Lymphocytes Absolute Auto 2000 /uL (1100-4500); Lymphocytes Percent Auto 26.2 % (25-40); Mean Corpuscular HGB Conc 32.8 % (30-36); Mean Corpuscular Hemoglobin 28.5 PG (26-34); Monocytes Absolute Auto 400 /uL (0-900); Monocytes Percent Auto 4.7 % (3-14); Neutrophils Absolute Auto 5100 /uL (1500-7000); Neutrophils Percent Auto 67.6 % (50-75); Platelet Count 334 X10^3/uL (150-400); Red Blood Cell Count 4.85 X10^6/uL (4.0-5.2); Red Cell Distribution Width 14.6 % (11.6-14.8); White Blood Cell Count 7.5 X10^3/uL (4.5-11.0)
[2021-03-04 19:30] LABS: HEMOLYSIS < 15 (0-50); Iron 107 ug/dL (37-170)
[2021-03-04 19:36] LABS: Hemoglobin A1C% w Est Avg Glu 5.5 % (4.0-6.0)
[2021-03-04 19:37] LABS: Alanine Aminotransferase 16 IU/L (<35); Albumin 4.7 g/dL (3.5-5.0); Albumin Globulin Ratio 1.5 (1.0-2.8); Alkaline Phosphatase 102 U/L (38-126); Aspartate Aminotransferase 22 IU/L (14-36); BUN Creatinine Ratio 12.8 (6-22); Bilirubin Total 0.8 mg/dL (0.2-1.3); Blood Urea Nitrogen 12 mg/dL (7-17); Calcium 9.9 mg/dL (8.4-10.2); Carbon Dioxide 27 mmol/L (22-32); Chloride 101 mmol/L (98-107); Cholesterol 265 mg/dL (140-199); Estimated Glomerular Filt Rate > 60.0 mL/min (>60); Globulin 3.2 g/dL (1.7-4.1); Glucose 96 mg/dL (70-100); HDL Cholesterol 59 mg/dL (40-60); HEMOLYSIS < 15 (0-50); LDL Cholesterol Calculated 165 mg/dL (<100); Potassium 4.1 mmol/L (3.4-5.1); Sodium 138 mmol/L (137-145); Total Protein 7.9 g/dL (6.3-8.2); Triglycerides 204 mg/dL (35-150)
[2021-03-04 19:47] LABS: Percent Iron Saturation 32 % (15-50); Total Iron Binding Capacity 333 ug/dL (265-497); Transferrin 265 mg/dL (206-381); Vitamin D 25 Hydroxy (D3) 18.1 ng/mL (30.0-100.0)
[2021-03-04 20:01] LABS: Thyroid Stimulating Hormone 1.98 uIU/mL (0.47-4.68)
[2021-03-04 20:09] LABS: Ferritin 48 ng/mL (6-137)
[2021-03-04 20:41] LABS: Folate 14.1 ng/mL (2.76-20.0); Vitamin B12 442 pg/mL (239-931)
[2021-03-06 05:38] LABS: Parathyroid Hormone Int 26 pg/mL (15-65)
[2021-03-07 21:08] LABS: Zinc 85 ug/dL (44-115)
[2021-03-09 09:52] LABS: Vitamin B1 135.4 nmol/L (66.5-200.0)
== END ==
PROVIDERS: Family Provider Family Medicine; PCP Family Medicine; Visit Provider Surgery
DX: Z71.3 Dietary counseling and surveillance (principal)
CPT/HCPCS: 80053; 80061; 82306; 82607; 82728; 82746; 83036; 83540; 83550; 83970; 84425; 84443; 84590; 84630; 85025

== ENCOUNTER → 2021-03-18 09:38 | Outpatient (CLI) | payer OTHER, MEDICAID, SELFPAY ==
[2020-12-10 10:04] VITALS: BMI 38.9
--- NOTE | 2021-03-18 09:40 | DI.MRI.S_ITS ---
PROCEDURE: MR PELVIS WO/W CON INDICATIONS: Pelvic and perineal pain TECHNIQUE: Coronal HASTE, sagittal breath-hold T2 FSE; axial T1 FSE with and without fat saturation through the pelvis. Optional long- and short-axis uterine nonbreath-hold T2 FSE through the uterus. Sagittal or axial dynamic VIBE during administration of contrast. Post-contrast axial or coronal VIBE/2-D FLASH with fat saturation from the iliac crests to the symphysis. Optional diffusion weighted imaging and ADC may be performed. COMPARISON: [facility], US, US PELVIC COMPLETE, 11/26/2020, 12:52. FINDINGS: Image quality: Excellent. Uterus: The uterus is surgically absent. Adnexa: There is a unilocular, finally septated left posterior adnexal cyst measuring 8.8 x 2.6 x 3.4 cm. There is close association with the posterior aspect of the left ovary. Additionally, there is a close association with the left aspect of the vaginal cuff. Postcontrast, there is minimal enhancement of the wall and no enhancement of the internal septations. There are no enhancing mural nodules. The ovary contains a 2.4 cm peripherally enhancing dominant follicle and two other smaller follicles. Urinary system: Bladder wall is normal in thickness. Distal ureters are non distended. Urethra appears normal in morphology. Nodes and vessels: No pelvic or inguinal adenopathy by size criteria. Iliac vessels are normal in size. Bowel and peritoneum: No pathologic free pelvic fluid. Inferior colon and small bowel loops are normal in caliber. Soft tissues: No inguinal hernias. No findings of pelvic floor incompetence in the absence of provocation. Bones: Marrow demonstrates normal overall signal. IMPRESSION: 1. 8.8 cm nonenhancing thin-walled minimally complicated left adnexal between the vaginal cuff and left ovary. Differential diagnosis includes peritoneal inclusion cyst, resolving post hysterectomy seroma or hematoma, residual hydrosalpinx, exophytic left ovarian cystic lesion. Recommend follow-up ultrasound or MRI in six months. 2. Left ovarian corpus luteum. Dictated by: Joy Chavez M.D. on 03/18/2021 at 15:37 Approved by: Joy Chavez M.D. on 03/18/2021 at 16:02
== END ==
PROVIDERS: Family Provider Family Medicine; PCP Family Medicine; Referring Provider Obstetrics & Gynecology; Visit Provider Obstetrics & Gynecology
DX: N83.12 Corpus luteum cyst of left ovary (principal); N73.6 Female pelvic peritoneal adhesions (postinfective); R10.2 Pelvic and perineal pain; Z90.710 Acquired absence of both cervix and uterus
CPT/HCPCS: 72197; A9579

== ENCOUNTER → 2021-03-23 07:44 | Outpatient (CLI) | payer OTHER, MEDICAID, SELFPAY ==
[2020-12-10 10:04] VITALS: BMI 38.9
[2021-03-23 21:25] LABS: COVID19 - ORCAS (NP or Nasal) Negative (Negative)
== END ==
PROVIDERS: Family Provider Family Medicine; PCP Family Medicine; Visit Provider Family Medicine
DX: Z01.812 Encounter for preprocedural laboratory examination (principal); Z20.822 Contact with and (suspected) exposure to COVID-19
CPT/HCPCS: C9803; U0003

== ENCOUNTER → 2021-05-24 11:03 | Outpatient (CLI) | payer OTHER, MEDICAID, SELFPAY ==
[2020-12-10 10:04] VITALS: BMI 38.9
== END ==
PROVIDERS: Family Provider Family Medicine; PCP Family Medicine; Referring Provider Nurse Practitioner Critical Care Medicine; Visit Provider Nurse Practitioner Critical Care Medicine
DX: R30.0 Dysuria (principal); R52 Pain, unspecified
CPT/HCPCS: 87086

== ENCOUNTER 2021-05-24 17:34 | Emergency (ER) | payer OTHER, MEDICAID, SELFPAY ==
[2020-12-10 10:04] VITALS: BMI 38.9
[2021-05-24 17:54] VITALS: BP 121/80; PULSE 75; RESP 12; TEMP 35.8; O2SAT 99; BMI 34.8
[2021-05-24 18:11] LABS: Appearance Urine UA SL CLOUDY; Bilirubin Urine UA NEGATIVE (NEGATIVE); Color Urine UA YELLOW; Glucose Urine UA TRACE g/dL (Negative); Ketones Urine UA NEGATIVE (NEGATIVE); Leukocyte Esterase Urine UA 1+ (NEGATIVE); Nitrite Urine UA POSITIVE (Negative); Occult Blood Urine UA 3+ (Negative); Protein Urine UA 2+ (Negative); Urobilinogen Urine UA 0.2 E.U./dL (0.2)
[2021-05-24 18:12] LABS: pH Urine UA 7.5 (4.5-8.0)
[2021-05-24 18:17] LABS: Bacteria Urine Moderate (10-30); RBC Urine 5-10/HPF (0-5/HPF); Squamous Epithelial Cell Urine 0-1 /HPF (0-5/HPF); WBC Urine 30-100/HPF (0-5/HPF)
[2021-05-24 18:18] LABS: Culture Indicated Urine Specimen Cultured
--- NOTE | 2021-05-24 18:53 | DI.CT.S_ITS ---
PROCEDURE: CT ABDOMEN PELVIS WO CON INDICATIONS: lower pelvic pain TECHNIQUE: Axial sections were acquired from the lung bases to the pubic symphysis. Coronal and sagittal reformats were performed. For radiation dose reduction, the following was used: automated exposure control, adjustment of mA and/or kV according to patient size. COMPARISON: [facility], , MR PELVIS WO/W CON, 03/18/2021, 9:59. FINDINGS: Image quality: Excellent. Lung bases: Unremarkable. Heart: No significant findings. URINARY: Right Kidney: No stones or hydronephrosis. Right Ureter: No hydroureter. Left Kidney: No stones or hydronephrosis. Left Ureter: No hydroureter. Bladder: Normal wall thickness. No stones. ABDOMEN: Liver: The liver is enlarged measuring 21.5 cm with steatosis. Gallbladder: The gallbladder is unremarkable. Biliary ducts: Unremarkable. Pancreas: Unremarkable. Spleen: Unremarkable. Adrenal Glands: Unremarkable. Stomach and Bowel: Small bowel loops, and colon are unremarkable. Gastric bypass changes are noted. Peritoneum: No abnormal intraperitoneal fluid. No free air. Ventral Wall: No hernia. Abdominal Nodes: No enlarged retroperitoneal or mesenteric lymph nodes. Vessels: Aorta and inferior vena cava are normal in size. PELVIS: Pelvic Organs: As identified on MRI exam on 03/18/2021, there is a low-attenuation focus within the region of the left adnexa extending inferiorly along the left pelvic sidewall. It is unchanged in size. Pelvic Nodes: Unremarkable. Miscellaneous: No inguinal hernias are seen. Bones: Unremarkable. IMPRESSION: No nephro or ureterolithiasis. No bladder calculi. Unchanged cystic focus within the region of the left adnexa extending inferiorly along the left pelvic sidewall as identified on previous MRI examination. It is noted on prior MRI a 6 month ultrasound follow-up is recommended. Dictated by: Tila Rand M.D. on 05/24/2021 at 21:10 Approved by: Tila Rand M.D. on 05/24/2021 at 21:17
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
[2021-05-24] MEDS: HYDROMORPHONE 1 MG INJ IM (19:42)
[2021-05-24 20:34] LABS: Add Manual Diff / Slide Review NO; Basophils Absolute Auto 100 /uL (0-100); Eosinophils Absolute Auto 100 /uL (0-450); Eosinophils Percent Auto 0.7 % (2-4); Hemoglobin 13.5 g/dL (12.0-16.0); Lymphocytes Absolute Auto 2600 /uL (1100-4500); Lymphocytes Percent Auto 24.2 % (25-40); Mean Corpuscular HGB Conc 33.7 % (30-36); Mean Corpuscular Hemoglobin 28.5 PG (26-34); Mean Corpuscular Volume 84.5 fL (80-100); Monocytes Absolute Auto 600 /uL (0-900); Monocytes Percent Auto 5.4 % (3-14); Neutrophils Absolute Auto 7300 /uL (1500-7000); Neutrophils Percent Auto 68.7 % (50-75); Platelet Count 327 X10^3/uL (150-400); Red Blood Cell Count 4.73 X10^6/uL (4.0-5.2); Red Cell Distribution Width 14.2 % (11.6-14.8); White Blood Cell Count 10.6 X10^3/uL (4.5-11.0)
[2021-05-24] MEDS: SODIUM CHLORIDE 0.9% 1,000 ML 1000 ML IV (20:40)
[2021-05-24 20:47] LABS: Lactate (Lactic Acid) 0.9 mmol/L (0.7-2.1)
[2021-05-24 20:49] LABS: Alanine Aminotransferase 12 IU/L (<35); Albumin 4.4 g/dL (3.5-5.0); Albumin Globulin Ratio 1.3 (1.0-2.8); Alkaline Phosphatase 83 U/L (38-126); Aspartate Aminotransferase 21 IU/L (14-36); Bilirubin Total 0.4 mg/dL (0.2-1.3); Blood Urea Nitrogen 13 mg/dL (7-17); Calcium 9.4 mg/dL (8.4-10.2); Carbon Dioxide 29 mmol/L (22-32); Chloride 104 mmol/L (98-107); Estimated Glomerular Filt Rate > 60.0 mL/min (>60); Globulin 3.3 g/dL (1.7-4.1); Glucose 97 mg/dL (70-100); HEMOLYSIS < 15 (0-50); Potassium 3.5 mmol/L (3.4-5.1); Sodium 140 mmol/L (137-145); Total Protein 7.7 g/dL (6.3-8.2)
[2021-05-24 21:05] LABS: Procalcitonin < 0.03 ng/mL (<0.5)
[2021-05-24 21:47] VITALS: BP 125/85; PULSE 74; O2SAT 100
[2021-05-24] MEDS: HYDROCODONE/ACET 5/325 PREPACK 1 BOTTLE MISC (21:53)
== END 2021-05-24 22:01 | disposition home or self-care (01) ==
PROVIDERS: Physician Assistant; Emergency Provider Emergency Medicine; Family Provider Family Medicine; PCP Family Medicine
DX: N39.0 Urinary tract infection, site not specified (principal); R30.0 Dysuria; R52 Pain, unspecified
CPT/HCPCS: 36415; 74176; 80053; 81001; 81002; 81003; 83605; 84145; 85025; 87040; 87077; 87086; 87186; 96360; 96372; 99284; J1170

== ENCOUNTER → 2021-05-25 11:08 | Outpatient (CLI) | payer OTHER, MEDICAID, SELFPAY ==
[2020-12-10 10:04] VITALS: BMI 38.9
[2021-05-25 19:16] LABS: Free T3, Triiodothyronine Free 3.71 pg/mL (2.77-5.27); Free T4, Direct Thyroxine 1.64 ng/dL (0.78-2.19)
[2021-05-25 19:30] LABS: Thyroid Stimulating Hormone 0.095 uIU/mL (0.47-4.68)
== END ==
PROVIDERS: Family Provider Family Medicine; PCP Family Medicine; Visit Provider Family Medicine
DX: E03.9 Hypothyroidism, unspecified (principal); E06.3 Autoimmune thyroiditis
CPT/HCPCS: 84439; 84443; 84481

== ENCOUNTER → 2021-06-19 10:31 | Outpatient (CLI) | payer OTHER, MEDICAID, SELFPAY ==
[2020-12-10 10:04] VITALS: BMI 38.9
== END ==
PROVIDERS: Family Provider Family Medicine; PCP Family Medicine; Visit Provider Nurse Practitioner Family
DX: R30.0 Dysuria (principal)
CPT/HCPCS: 81002; 87077; 87086; 87186

== ENCOUNTER → 2021-07-20 09:19 | Outpatient (CLI) | payer OTHER, MEDICAID, SELFPAY ==
[2020-12-10 10:04] VITALS: BMI 38.9
[2021-07-20 11:27] LABS: Hemoglobin 13.9 g/dL (12.0-16.0); Mean Corpuscular HGB Conc 33.1 % (30-36); Mean Corpuscular Volume 87.7 fL (80-100); Platelet Count 309 X10^3/uL (150-400); Red Blood Cell Count 4.79 X10^6/uL (4.0-5.2); Red Cell Distribution Width 15.7 % (11.6-14.8); White Blood Cell Count 6.4 X10^3/uL (4.5-11.0)
[2021-07-20 11:45] LABS: Hemoglobin A1C% w Est Avg Glu 5.3 % (4.0-6.0)
[2021-07-20 12:34] LABS: Iron 91 ug/dL (37-170)
[2021-07-20 12:37] LABS: Alanine Aminotransferase 12 IU/L (<35); Albumin 4.4 g/dL (3.5-5.0); Albumin Globulin Ratio 1.4 (1.0-2.8); Alkaline Phosphatase 88 U/L (38-126); Aspartate Aminotransferase 20 IU/L (14-36); BUN Creatinine Ratio 9.6 (6-22); Bilirubin Total 0.6 mg/dL (0.2-1.3); Blood Urea Nitrogen 9 mg/dL (7-17); Calcium 9.4 mg/dL (8.4-10.2); Carbon Dioxide 27 mmol/L (22-32); Chloride 105 mmol/L (98-107); Cholesterol 170 mg/dL (140-199); Estimated Glomerular Filt Rate > 60.0 mL/min (>60); Globulin 3.2 g/dL (1.7-4.1); Glucose 92 mg/dL (70-100); HDL Cholesterol 63 mg/dL (40-60); HEMOLYSIS < 15 (0-50); LDL Cholesterol Calculated 79 mg/dL (<100); Sodium 139 mmol/L (137-145); Total Protein 7.6 g/dL (6.3-8.2); Triglycerides 141 mg/dL (35-150)
[2021-07-20 12:48] LABS: Percent Iron Saturation 30 % (15-50); Total Iron Binding Capacity 304 ug/dL (265-497)
[2021-07-20 13:07] LABS: Ferritin 25 ng/mL (6-137)
[2021-07-20 13:38] LABS: Folate 10.8 ng/mL (2.76-20.0); Vitamin B12 963 pg/mL (239-931)
[2021-07-20 16:09] LABS: Vitamin D 25 Hydroxy (D3) 60.8 ng/mL (30.0-100.0)
[2021-07-23 18:04] LABS: Zinc 95 ug/dL (44-115)
[2021-07-24 06:42] LABS: Vitamin B1 113.7 nmol/L (66.5-200.0)
[2021-07-24 12:36] LABS: Vitamin A 44.7 ug/dL (18.9-57.3)
== END ==
PROVIDERS: Family Provider Family Medicine; PCP Family Medicine; Referring Provider Surgery; Visit Provider Surgery
DX: K91.2 Postsurgical malabsorption, not elsewhere classified (principal)
CPT/HCPCS: 36415; 80053; 80061; 82306; 82607; 82728; 82746; 83036; 83540; 83550; 84425; 84590; 84630; 85027

== ENCOUNTER → 2021-07-31 16:08 | Outpatient (CLI) | payer SELFPAY ==
[2020-12-10 10:04] VITALS: BMI 38.9
== END ==
PROVIDERS: Family Provider Family Medicine; PCP Family Medicine
DX: Z02.83 Encounter for blood-alcohol and blood-drug test (principal)

== ENCOUNTER → 2021-09-23 08:38 | Outpatient (CLI) | payer OTHER, MEDICAID, SELFPAY ==
[2020-12-10 10:04] VITALS: BMI 38.9
--- NOTE | 2021-09-23 | DI.US.S_ITS ---
PROCEDURE: US PELVIC COMPLETE INDICATIONS: Unspecified ovarian cyst, unspecified side TECHNIQUE: Real-time scanning was performed of the pelvic organs, with image documentation. Additional endovaginal scanning was necessary due to incomplete visualization of the adnexal and endometrial structures by transabdominal scanning. COMPARISON: None. FINDINGS: Uterus: Uterus is surgically absent. Vaginal cuff is sonographically normal. Ovaries: The right ovary measures 3.3 x 4.1 x 5.1 cm. The left ovary measures 3.5 x 1.8 x 3.5 cm. Right ovary is sonographically normal. 1.4 x 1.2 x 1.1 centimeter cyst with internal debris is noted in the left ovary. 2.7 x 1.5 x 2.1 centimeter left paraovarian cyst. No adnexal masses are seen. Other: No pathologic free abdominal or pelvic fluid. IMPRESSION: 1. Status post hysterectomy. 2. Right ovary sonographically normal. 3. 1.4 x 1.2 x 1.1 centimeter left ovarian cyst and 2.7 x 1.5 x 2.1 centimeter left paraovarian cyst. Dictated by: Awilda Schaefer MD, PhD on 09/23/2021 at 11:24 Approved by: Awilda Schaefer MD, PhD on 09/23/2021 at 11:27
[2021-09-23 11:37] LABS: Free T3, Triiodothyronine Free 5.25 pg/mL (2.77-5.27); Free T4, Direct Thyroxine 1.44 ng/dL (0.78-2.19)
== END ==
PROVIDERS: Family Provider Family Medicine; PCP Family Medicine; Referring Provider Obstetrics & Gynecology; Visit Provider Obstetrics & Gynecology
DX: N83.202 Unspecified ovarian cyst, left side (principal); E03.9 Hypothyroidism, unspecified; Z90.710 Acquired absence of both cervix and uterus
CPT/HCPCS: 36415; 76830; 76856; 84439; 84443; 84481

== ENCOUNTER → 2021-10-06 09:17 | Outpatient (CLI) | payer OTHER, MEDICAID, SELFPAY ==
[2020-12-10 10:04] VITALS: BMI 38.9
[2021-10-06 19:33] LABS: Hematocrit 43.5 % (36-46); Hemoglobin 14.7 g/dL (12.0-16.0); Mean Corpuscular HGB Conc 33.9 % (30-36); Mean Corpuscular Hemoglobin 30.2 PG (26-34); Mean Corpuscular Volume 88.9 fL (80-100); Platelet Count 268 X10^3/uL (150-400); Red Blood Cell Count 4.89 X10^6/uL (4.0-5.2); Red Cell Distribution Width 14.3 % (11.6-14.8); White Blood Cell Count 5.8 X10^3/uL (4.5-11.0)
[2021-10-06 19:47] LABS: HEMOLYSIS < 15 (0-50); Iron 62 ug/dL (37-170)
[2021-10-06 19:54] LABS: Hemoglobin A1C% w Est Avg Glu 5.3 % (4.0-6.0)
[2021-10-06 19:57] LABS: Alanine Aminotransferase 12 IU/L (<35); Albumin 4.4 g/dL (3.5-5.0); Albumin Globulin Ratio 1.5 (1.0-2.8); Alkaline Phosphatase 79 U/L (38-126); Aspartate Aminotransferase 21 IU/L (14-36); BUN Creatinine Ratio 12.3 (6-22); Bilirubin Total 0.6 mg/dL (0.2-1.3); Blood Urea Nitrogen 10 mg/dL (7-17); Calcium 9.4 mg/dL (8.4-10.2); Carbon Dioxide 28 mmol/L (22-32); Chloride 104 mmol/L (98-107); Cholesterol 156 mg/dL (140-199); Estimated Glomerular Filt Rate > 60 mL/min (>60); Globulin 2.9 g/dL (1.7-4.1); Glucose 93 mg/dL (70-100); HDL Cholesterol 56 mg/dL (40-60); HEMOLYSIS < 15 (0-50); LDL Cholesterol Calculated 81 mg/dL (<100); Potassium 4.1 mmol/L (3.4-5.1); Sodium 139 mmol/L (137-145); Total Protein 7.3 g/dL (6.3-8.2); Triglycerides 95 mg/dL (35-150)
[2021-10-06 19:58] LABS: Percent Iron Saturation 19 % (15-50); Total Iron Binding Capacity 321 ug/dL (265-497); Transferrin 247 mg/dL (206-381)
[2021-10-06 20:18] LABS: Vitamin D 25 Hydroxy (D3) 61.4 ng/mL (30.0-100.0)
[2021-10-06 20:19] LABS: Thyroid Stimulating Hormone 0.087 uIU/mL (0.47-4.68)
[2021-10-06 20:27] LABS: Ferritin 32 ng/mL (6-137)
[2021-10-06 20:58] LABS: Folate 17.7 ng/mL (2.76-20.0); Vitamin B12 784 pg/mL (239-931)
[2021-10-07 08:51] LABS: Parathyroid Hormone Int 27 pg/mL (15-65)
[2021-10-07 16:22] LABS: Zinc 79 ug/dL (44-115)
[2021-10-09 21:43] LABS: Vitamin A 46.6 ug/dL (18.9-57.3)
[2021-10-10 14:49] LABS: Vitamin B1 147.8 nmol/L (66.5-200.0)
== END ==
PROVIDERS: Family Provider Family Medicine; PCP Family Medicine; Visit Provider Surgery
DX: E66.9 Obesity, unspecified (principal); Z68.34 Body mass index [BMI] 34.0-34.9, adult
CPT/HCPCS: 80053; 80061; 82306; 82607; 82728; 82746; 83036; 83540; 83550; 83970; 84425; 84443; 84590; 84630; 85027

== ENCOUNTER → 2021-12-23 13:28 | Outpatient (CLI) | payer OTHER, MEDICAID, SELFPAY ==
[2021-12-18 13:50] VITALS: BMI 38.9
--- NOTE | 2021-12-23 13:30 | DI.RAD.S_ITS ---
PROCEDURE: XR HIP W PEL IF DONE JAYLAN MIN 4V INDICATIONS: Right hip pain; popping/clicking feels like it pops out TECHNIQUE: AP pelvis with lateral view(s) of the both hip(s). COMPARISON: CT abdomen pelvis 05/24/2021. FINDINGS: Bones: No fractures or dislocations. Minimal bilateral hip DJD. No femoral head a vascular necrosis. Pelvic ring appears intact. No suspicious bony lesions. Soft tissues: The visualized bowel gas pattern is normal. No suspicious soft tissue calcifications. IMPRESSION: Minimal bilateral hip DJD. Dictated by: Albino Avila M.D. on 12/23/2021 at 16:23 Approved by: Albino Avila M.D. on 12/23/2021 at 16:24
== END ==
PROVIDERS: Family Provider Family Medicine; PCP Family Medicine; Referring Provider Physician Assistant; Visit Provider Physician Assistant
DX: M25.551 Pain in right hip (principal)
CPT/HCPCS: 73522

== ENCOUNTER → 2022-02-03 11:07 | Outpatient (CLI) | payer OTHER, MEDICAID, SELFPAY ==
[2021-12-18 13:50] VITALS: BMI 38.9
[2022-02-03 19:28] LABS: Add Manual Diff / Slide Review NO; Basophils Absolute Auto 0 /uL (0-100); Basophils Percent Auto 0.5 % (0-2); Eosinophils Absolute Auto 0 /uL (0-450); Eosinophils Percent Auto 0.9 % (2-4); Hematocrit 41.3 % (36-46); Hemoglobin 13.9 g/dL (12.0-16.0); Lymphocytes Absolute Auto 1700 /uL (1100-4500); Lymphocytes Percent Auto 30.4 % (25-40); Mean Corpuscular HGB Conc 33.5 % (30-36); Mean Corpuscular Hemoglobin 30.4 PG (26-34); Mean Corpuscular Volume 90.6 fL (80-100); Monocytes Absolute Auto 300 /uL (0-900); Neutrophils Absolute Auto 3600 /uL (1500-7000); Neutrophils Percent Auto 63.2 % (50-75); Platelet Count 285 X10^3/uL (150-400); Red Blood Cell Count 4.56 X10^6/uL (4.0-5.2); Red Cell Distribution Width 13.7 % (11.6-14.8); White Blood Cell Count 5.7 X10^3/uL (4.5-11.0)
[2022-02-03 19:37] LABS: Alanine Aminotransferase 14 IU/L (<35); Albumin 4.4 g/dL (3.5-5.0); Albumin Globulin Ratio 1.5 (1.0-2.8); Alkaline Phosphatase 94 U/L (38-126); Aspartate Aminotransferase 21 IU/L (14-36); BUN Creatinine Ratio 9.1 (6-22); Bilirubin Total 0.7 mg/dL (0.2-1.3); Blood Urea Nitrogen 8 mg/dL (7-17); Carbon Dioxide 27 mmol/L (22-32); Chloride 102 mmol/L (98-107); Cholesterol 143 mg/dL (140-199); Estimated Glomerular Filt Rate > 60 mL/min (>60); Globulin 2.9 g/dL (1.7-4.1); Glucose 116 mg/dL (70-100); HDL Cholesterol 65 mg/dL (40-60); HEMOLYSIS < 15 (0-50); LDL Cholesterol Calculated 63 mg/dL (<100); Potassium 4.4 mmol/L (3.4-5.1); Sodium 138 mmol/L (137-145); Total Protein 7.3 g/dL (6.3-8.2); Triglycerides 74 mg/dL (35-150)
[2022-02-03 20:07] LABS: TSH w/ Reflex to FT4 0.19 uIU/mL (0.47-4.68)
[2022-02-03 23:26] LABS: Free T4, Direct Thyroxine 1.59 ng/dL (0.78-2.19)
== END ==
PROVIDERS: Family Provider Family Medicine; PCP Family Medicine; Visit Provider Family Medicine
DX: E03.9 Hypothyroidism, unspecified (principal); E66.9 Obesity, unspecified; E78.5 Hyperlipidemia, unspecified; Z90.3 Acquired absence of stomach [part of]
CPT/HCPCS: 80053; 80061; 84439; 84443; 85025

== ENCOUNTER → 2022-02-11 14:44 | Outpatient (CLI) | payer OTHER, MEDICAID, SELFPAY ==
[2021-12-18 13:50] VITALS: BMI 38.9
[2022-02-11 20:46] LABS: Appearance Urine UA SL CLOUDY; Bilirubin Urine UA NEGATIVE (NEGATIVE); Color Urine UA YELLOW; Glucose Urine UA NEGATIVE (Negative); Ketones Urine UA NEGATIVE (NEGATIVE); Leukocyte Esterase Urine UA 1+ (NEGATIVE); Nitrite Urine UA POSITIVE (Negative); Occult Blood Urine UA 2+ (Negative); Protein Urine UA NEGATIVE (Negative); Urobilinogen Urine UA 0.2 E.U./dL (0.2)
[2022-02-11 20:53] LABS: Bacteria Urine Many (>30); Culture Indicated Urine Specimen Cultured; RBC Urine 0-1/HPF (0-5/HPF); WBC Urine >100/HPF (0-5/HPF)
== END ==
PROVIDERS: Family Provider Family Medicine; PCP Physician Assistant; Visit Provider Physician Assistant
DX: R30.0 Dysuria (principal)
CPT/HCPCS: 81001; 87077; 87086; 87186

== ENCOUNTER → 2022-03-31 08:56 | Outpatient (CLI) | payer OTHER, MEDICAID, SELFPAY ==
[2021-12-18 13:50] VITALS: BMI 38.9
[2022-03-31 11:14] LABS: Hematocrit 39.3 % (36-46); Hemoglobin 13.3 g/dL (12.0-16.0); Mean Corpuscular HGB Conc 33.9 % (30-36); Mean Corpuscular Hemoglobin 30.8 PG (26-34); Mean Corpuscular Volume 90.8 fL (80-100); Platelet Count 272 X10^3/uL (150-400); Red Blood Cell Count 4.32 X10^6/uL (4.0-5.2); Red Cell Distribution Width 13.8 % (11.6-14.8)
[2022-03-31 11:26] LABS: Hemoglobin A1C% w Est Avg Glu 5.3 % (4.0-6.0)
[2022-03-31 19:33] LABS: Alanine Aminotransferase 14 IU/L (<35); Albumin 4.1 g/dL (3.5-5.0); Albumin Globulin Ratio 1.6 (1.0-2.8); Alkaline Phosphatase 75 U/L (38-126); Aspartate Aminotransferase 19 IU/L (14-36); BUN Creatinine Ratio 13.9 (6-22); Bilirubin Total 0.6 mg/dL (0.2-1.3); Blood Urea Nitrogen 11 mg/dL (7-17); Calcium 8.8 mg/dL (8.4-10.2); Carbon Dioxide 28 mmol/L (22-32); Chloride 103 mmol/L (98-107); Cholesterol 168 mg/dL (140-199); Estimated Glomerular Filt Rate > 60 mL/min (>60); Globulin 2.6 g/dL (1.7-4.1); Glucose 81 mg/dL (70-100); HDL Cholesterol 65 mg/dL (40-60); HEMOLYSIS < 15 (0-50); Iron 120 ug/dL (37-170); LDL Cholesterol Calculated 79 mg/dL (<100); Potassium 3.9 mmol/L (3.4-5.1); Sodium 139 mmol/L (137-145); Total Protein 6.7 g/dL (6.3-8.2); Triglycerides 119 mg/dL (35-150)
[2022-03-31 19:44] LABS: Percent Iron Saturation 41 % (15-50); Total Iron Binding Capacity 290 ug/dL (265-497)
[2022-03-31 20:10] LABS: Ferritin 38 ng/mL (6-137); Thyroid Stimulating Hormone 0.431 uIU/mL (0.47-4.68)
[2022-03-31 20:42] LABS: Folate 19.1 ng/mL (2.76-20.0); Vitamin B12 576 pg/mL (239-931)
[2022-03-31 21:33] LABS: Vitamin D 25 Hydroxy (D3) 46.3 ng/mL (30.0-100.0)
[2022-04-01 13:47] LABS: Parathyroid Hormone Int 27 pg/mL (15-65)
[2022-04-02 00:07] LABS: Zinc 65 ug/dL (44-115)
[2022-04-03 11:00] LABS: Vitamin B1 144.1 nmol/L (66.5-200.0)
[2022-04-05 08:08] LABS: Vitamin A 54.8 ug/dL (18.9-57.3)
== END ==
PROVIDERS: Surgery; Family Provider Family Medicine; PCP Physician Assistant; Referring Provider Physician Assistant; Visit Provider Physician Assistant
DX: Z13.21 Encounter for screening for nutritional disorder (principal)
CPT/HCPCS: 36415; 80053; 80061; 82306; 82607; 82728; 82746; 83036; 83540; 83550; 83970; 84425; 84443; 84590; 84630; 85027

== ENCOUNTER → 2022-04-15 14:19 | Outpatient (CLI) | payer OTHER, MEDICAID, SELFPAY ==
[2021-12-18 13:50] VITALS: BMI 38.9
[2022-04-15 17:22] LABS: Erythrocyte Sedimentation Rate 2 MM/HR (0-20)
[2022-04-15 17:30] LABS: C-Reactive Protein Quant < 0.5 mg/dL (<1.0)
== END ==
PROVIDERS: Family Provider Family Medicine; PCP Physician Assistant; Referring Provider Nurse Practitioner Family; Visit Provider Nurse Practitioner Family
DX: Z98.1 Arthrodesis status (principal)
CPT/HCPCS: 36415; 85651; 86140

== ENCOUNTER → 2022-05-08 09:29 | Outpatient (CLI) | payer OTHER, MEDICAID, SELFPAY ==
[2021-12-18 13:50] VITALS: BMI 38.9
--- NOTE | 2022-05-08 | DI.RAD.S_ITS ---
PROCEDURE: XR CERVICAL SPINE MIN 6V INDICATIONS: Arthrodesis status TECHNIQUE: 6 views of the cervical spine were acquired, including flexion extension views and bilateral oblique views. COMPARISON: Merged With [facility], , XR CERVICAL SPINE 2V OR 3V, 10/08/2019, 9:21. FINDINGS: Bones: No fractures or dislocations to the T1 level. No suspicious bony lesions. And anteriorly placed fixation device can be seen at the C6-C7 level. No findings of hardware failure or hardware loosening are seen. There is moderate disc space narrowing seen at C5-C6, with associated endplate irregularity and sclerosis. On the neutral image, there is mild reversal of the normal cervical lordosis. On flexion and extension views, there is limited range of motion observed, without abnormal subluxation. On oblique images, mild neural foraminal narrowing can be seen on both sides at the C5-C6 level. There is also mild left-sided neural foraminal narrowing at C3-C4 and C4-C5. Soft tissues: Prevertebral soft tissues are normal in thickness. The visualized lung apices are unremarkable. IMPRESSION: Unremarkable C6-C7 postoperative hardware. Focal C5-C6 degenerative change. Limited range of motion, without abnormal subluxation. Straightening of the normal cervical lordosis is seen, which is commonly observed in patients with muscular spasm. Dictated by: Damien Reynaga M.D. on 05/08/2022 at 9:49 Approved by: Damien Reynaga M.D. on 05/08/2022 at 9:51
== END ==
PROVIDERS: Family Provider Family Medicine; PCP Physician Assistant; Referring Provider Physician Assistant; Visit Provider Physician Assistant
DX: M47.812 Spondylosis without myelopathy or radiculopathy, cervical region (principal); Z98.1 Arthrodesis status
CPT/HCPCS: 72052

== ENCOUNTER → 2022-09-01 11:01 | Outpatient (CLI) | payer OTHER, MEDICAID, SELFPAY ==
[2022-08-18 10:58] VITALS: BMI 38.9
[2022-09-01 19:58] LABS: Add Manual Diff / Slide Review NO; Basophils Absolute Auto 0 /uL (0-100); Basophils Percent Auto 0.5 % (0-2); Eosinophils Absolute Auto 100 /uL (0-450); Hematocrit 39.8 % (36-46); Hemoglobin 13.7 g/dL (12.0-16.0); Lymphocytes Absolute Auto 2100 /uL (1100-4500); Lymphocytes Percent Auto 36.1 % (25-40); Mean Corpuscular HGB Conc 34.4 % (30-36); Mean Corpuscular Hemoglobin 30.5 PG (26-34); Mean Corpuscular Volume 88.5 fL (80-100); Monocytes Absolute Auto 400 /uL (0-900); Monocytes Percent Auto 6.8 % (3-14); Neutrophils Absolute Auto 3200 /uL (1500-7000); Neutrophils Percent Auto 55.6 % (50-75); Platelet Count 264 X10^3/uL (150-400); Red Cell Distribution Width 13.9 % (11.6-14.8); White Blood Cell Count 5.7 X10^3/uL (4.5-11.0)
[2022-09-01 20:03] LABS: HEMOLYSIS < 15 (0-50); Iron 114 ug/dL (37-170)
[2022-09-01 20:10] LABS: Alanine Aminotransferase 17 IU/L (<35); Albumin 4.2 g/dL (3.5-5.0); Albumin Globulin Ratio 1.4 (1.0-2.8); Alkaline Phosphatase 71 U/L (38-126); Aspartate Aminotransferase 22 IU/L (14-36); BUN Creatinine Ratio 10.5 (6-22); Bilirubin Total 0.8 mg/dL (0.2-1.3); Blood Urea Nitrogen 9 mg/dL (7-17); Calcium 9.2 mg/dL (8.4-10.2); Carbon Dioxide 26 mmol/L (22-32); Chloride 104 mmol/L (98-107); Estimated Glomerular Filt Rate > 60 mL/min (>60); Glucose 95 mg/dL (70-100); HEMOLYSIS < 15 (0-50); Potassium 4.2 mmol/L (3.4-5.1); Sodium 137 mmol/L (137-145); Total Protein 7.2 g/dL (6.3-8.2)
[2022-09-01 20:12] LABS: Percent Iron Saturation 36 % (15-50); Total Iron Binding Capacity 315 ug/dL (265-497); Transferrin 222 mg/dL (206-381)
[2022-09-01 20:14] LABS: Vitamin D 25 Hydroxy (D3) 45.1 ng/mL (30.0-100.0)
[2022-09-01 20:24] LABS: Free T3, Triiodothyronine Free 3.69 pg/mL (2.77-5.27); Free T4, Direct Thyroxine 1.23 ng/dL (0.78-2.19)
[2022-09-01 20:37] LABS: Thyroid Stimulating Hormone 1.66 uIU/mL (0.47-4.68)
[2022-09-01 21:14] LABS: Folate > 20.0 ng/mL (2.76-20.0); Vitamin B12 Reflex MMA if <400 777 pg/mL (239-931)
== END ==
PROVIDERS: Family Provider Family Medicine; PCP Family Medicine; Visit Provider Family Medicine
DX: E03.9 Hypothyroidism, unspecified (principal); R61 Generalized hyperhidrosis; Z98.84 Bariatric surgery status
CPT/HCPCS: 80053; 82306; 82607; 82746; 83001; 83540; 83550; 84439; 84443; 84481; 85025

== ENCOUNTER → 2022-11-02 10:46 | Outpatient (CLI) | payer OTHER, MEDICAID, SELFPAY ==
[2022-08-18 10:58] VITALS: BMI 38.9
== END ==
PROVIDERS: Family Provider Family Medicine; PCP Family Medicine; Visit Provider Physician Assistant
DX: N39.0 Urinary tract infection, site not specified (principal)
CPT/HCPCS: 81002; 87077; 87086; 87186

== ENCOUNTER → 2022-12-28 14:46 | Outpatient (CLI) | payer OTHER, MEDICAID, SELFPAY ==
[2022-08-18 10:58] VITALS: BMI 38.9
== END ==
PROVIDERS: Family Provider Family Medicine; PCP Family Medicine; Visit Provider Physician Assistant
DX: R30.0 Dysuria (principal)
CPT/HCPCS: 81002; 87077; 87086; 87186

== ENCOUNTER → 2023-08-01 11:57 | Outpatient (CLI) | payer OTHER, SELFPAY ==
[2022-08-18 10:58] VITALS: BMI 38.9
[2023-08-01 19:29] LABS: Alanine Aminotransferase 18 IU/L (<35); Albumin Globulin Ratio 1.3 (1.0-2.8); Alkaline Phosphatase 55 U/L (38-126); Aspartate Aminotransferase 23 IU/L (14-36); BUN Creatinine Ratio 14.6 (6-22); Bilirubin Total 0.5 mg/dL (0.2-1.3); Blood Urea Nitrogen 12 mg/dL (7-17); Calcium 9.2 mg/dL (8.4-10.2); Carbon Dioxide 29 mmol/L (22-32); Chloride 105 mmol/L (98-107); Estimated Glomerular Filt Rate > 60 mL/min (>60); Glucose 86 mg/dL (70-100); HEMOLYSIS < 15 (0-50); Potassium 3.9 mmol/L (3.4-5.1); Sodium 138 mmol/L (137-145)
[2023-08-01 20:26] LABS: TSH w/ Reflex to FT4 0.31 uIU/mL (0.47-4.68)
[2023-08-05 03:58] LABS: Free T4, Direct Thyroxine 1.82 ng/dL (0.78-2.19)
== END ==
PROVIDERS: Family Provider Family Medicine; PCP Physician Assistant; Visit Provider Family Medicine
DX: E03.9 Hypothyroidism, unspecified (principal)
CPT/HCPCS: 80053; 84439; 84443

== ENCOUNTER → 2023-12-06 13:45 | Outpatient (CLI) | payer OTHER, SELFPAY ==
[2022-08-18 10:58] VITALS: BMI 38.9
[2023-12-06 21:33] LABS: TSH w/ Reflex to FT4 1.25 uIU/mL (0.47-4.68)
== END ==
PROVIDERS: Family Provider Family Medicine; PCP Physician Assistant; Visit Provider Family Medicine
DX: E03.9 Hypothyroidism, unspecified (principal)
CPT/HCPCS: 84443

== ENCOUNTER → 2024-01-16 08:13 | Outpatient (CLI) | payer OTHER, SELFPAY ==
[2022-08-18 10:58] VITALS: BMI 38.9
[2024-01-16 18:51] LABS: Cholesterol 196 mg/dL (140-199); HDL Cholesterol 50 mg/dL (40-60); LDL Cholesterol Calculated 112 mg/dL (<100); Triglycerides 169 mg/dL (35-150)
[2024-01-16 19:13] LABS: Free T3, Triiodothyronine Free 4.45 pg/mL (2.77-5.27)
[2024-01-16 19:53] LABS: Hepatitis B Surface Antigen NEGATIVE s/c (NEGATIVE)
[2024-01-16 20:04] LABS: HIV 1 & 2 Ab/Ag 4th Gen Combo NEGATIVE (NEGATIVE)
[2024-01-18 02:39] LABS: HSV 2 IGG AB < 0.91 index (0.00-0.90)
== END ==
PROVIDERS: Family Provider Family Medicine; PCP Physician Assistant; Referring Provider Physician Assistant; Visit Provider Physician Assistant
DX: Z79.899 Other long term (current) drug therapy (principal); Z13.6 Encounter for screening for cardiovascular disorders; Z11.3 Encounter for screening for infections with a predominantly sexual mode of transmission; E03.9 Hypothyroidism, unspecified; E66.9 Obesity, unspecified; E78.5 Hyperlipidemia, unspecified
CPT/HCPCS: 80061; 84481; 86592; 86695; 86696; 87340; 87389

== ENCOUNTER → 2024-06-11 11:39 | Outpatient (CLI) | payer OTHER, SELFPAY ==
[2022-08-18 10:58] VITALS: BMI 38.9
[2024-06-11 19:25] LABS: Cholesterol 172 mg/dL (140-199); HDL Cholesterol 56 mg/dL (40-60); LDL Cholesterol Calculated 95 mg/dL (<100); Triglycerides 107 mg/dL (35-150)
[2024-06-11 19:56] LABS: TSH w/ Reflex to FT4 4.65 uIU/mL (0.47-4.68)
== END ==
PROVIDERS: Family Provider Family Medicine; PCP Physician Assistant; Visit Provider Physician Assistant
DX: E03.9 Hypothyroidism, unspecified (principal); E78.5 Hyperlipidemia, unspecified
CPT/HCPCS: 80061; 84443

== ENCOUNTER → 2024-10-24 14:25 | Outpatient (CLI) | payer OTHER, SELFPAY ==
[2024-10-23 15:10] VITALS: BMI 38.9
[2024-10-24 21:46] LABS: Thyroid Stimulating Hormone 2.10 uIU/mL (0.47-4.68)
== END ==
PROVIDERS: Family Medicine; Family Provider Family Medicine; PCP Physician Assistant
DX: E06.3 Autoimmune thyroiditis (principal)
CPT/HCPCS: 84443